=== PATIENT | female | born 1990 | race Caucasian/White ===

== ENCOUNTER → 2016-06-13 | Outpatient (CLI) | payer OTHER ==
[~2016-06-13] MED LIST: AMOXICILLIN 50500 MG PO; AMOXIL500 M1 PO; BIRTH CONTROL; CITALOPRAM HYDR20 MG PO; CITALOPRAM40 MG PO; CORTISPORIN OTI10 M1 OT; FLEXERIL10 MG PO; FLEXERIL5 MG PO; HYDROXYZINE PAM50 MG PO; IBU600 MG PO; IBUPROFEN600 MG PO; PHENERGAN 25MG.25 M1 PO; PRENATAL PLUS1 TA1 PO; PYRIDIUM 200MG200 MG PO; RANITIDINE HCL150 MG PO; SULFAMETHOXAZOLE IJ; TRIMETHOPRIM IJ; TYLENOL ES500 M1 PO; VICODIN 5/500 T1 TAB PO; VOLTAREN75 MG PO
== END ==
LOC: LAB 14:37
DX: R10.9 Unspecified abdominal pain (principal)

== ENCOUNTER → 2016-06-14 | Outpatient (CLI) | payer OTHER | LOC: LAB 08:35 | DX: Z32.00 Encounter for pregnancy test, result unknown (principal) ==

== ENCOUNTER 2016-09-16 13:22 | Emergency (ER) | payer OTHER ==
[~2016-09-16] VITALS: Ht 157.5 cm; Wt 83.9 kg
--- OUTSIDE RECORDS SUMMARY | 2016-09-16 13:38 | External Medical Summary Rpt ---
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 Name Role Phone [employer] Unavailable Unavailable INC, [employer] Unavailable Unavailable INC, [employer] TIFFANIE FRA, TIFFANIE Unavailable Unavailable FRA GUERRERO TER, GUERRERO TER Unavailable Unavailable HEREDIA ALL, HEREDIA ALL Unavailable Unavailable [facility], Unavailable Unavailable [facility] CHIPPS FRIEDA & Unavailable Unavailable DUBILIER, CHIPPS FRIEDA & DUBILIER JOSH TER, JOSH TER Unavailable Unavailable JOSH MULLINSE Unavailable Unavailable VOLODYMYR BLANDON, Unavailable Unavailable VOLODYMYR CHAN [facility] Unavailable Unavailable [facility], [facility] Unavailable Unavailable [facility], [facility] Unavailable Unavailable LAB, [facility] JANEE DANIELLA, Unavailable Unavailable JANEE DANIELLA JANEE, JESÚS, Unavailable Unavailable JANEE, JESÚS CATHY VISION, Unavailable Unavailable [facility] ELOISA RENDON PA-C Unavailable Unavailable ELOISA HICKS PA-C, MD, Unavailable Unavailable Volodymyr REDDING, Unavailable Unavailable FEDERSPIEL LAGUNAS WILLIAM, Unavailable Unavailable LAGUNAS WILLIAM LAGUNAS WILLIAM, Unavailable Unavailable LAGUNAS WILLIAM FRYMAN EUG, FRYMAN Unavailable Unavailable EUG KALYN SHAQUILLE, KALYN Unavailable Unavailable SHAQUILLE NATAN ADHIKARI S, Unavailable Unavailable NATAN ADHIKARI S DEVIN HERNANDEZ MD, Unavailable Unavailable ANNIE KIDD MD, Unavailable Unavailable ANNIE DAUGHERTY HARPEL Unavailable Unavailable [facility] Unavailable Unavailable [facility] Unavailable Unavailable [facility] Unavailable Unavailable INC, [facility] Unavailable Unavailable [facility], JOSE ELIAS A, Unavailable Unavailable JOSE ELIAS ROSE [facility], Unavailable Unavailable [facility] PRASHANTH MCMANUS CHA Unavailable Unavailable [facility] Un[facility] Unavailable [facility], [facility], Unavailable Unavailable [facility] CHLOE, CHLOE Unavailable Unavailable CHLOE MEKA, CHLOE Unavailable Unavailable MEKA Lex Adhikari MD, Unavailable Unavailable Lex BRADLEY SCO, MIRNA SAUNDERS Unavailable Unavailable [facility] Unavailable Unavailable SERVICES, [facility] HARJEET DELACRUZ, Unavailable Unavailable HARJEET DELACRUZ DANIELLA, Unavailable Unavailable TOYA DANIELLA TRACY JUS, Unavailable Unavailable TRACY SILVA, MATTHEW SILVA Unavailable Unavailable ISAMAR CASTRO, Unavailable Unavailable ISAMAR CASTRO [facility], Unavailable [facility]available [facility] Unavailable [facility]available LAB[facility] Unavailable Unavailable LAB, [facility] Unavailable Unavailable DIAGNOSTICCENTER, DIAGNOSTICCENTER PETTEY JAM, PETTEY Unavailable Unavailable JAM [facility], Unavailable Unavailable [facility] PURDOM MAT, PURDOM Unavailable Unavailable MAT RENUSCH JOSE, RENUSCH Unavailable Unavailable JOSE SCIFRES ANG, SCIFRES Unavailable Unavailable ANG SOKAN, RUTH O, Unavailable Unavailable SOKAN, RUTH O SOTINGEANU MILADIS, Unavailable Unavailable SOTINGEANU MILADIS SELLERS DON, Unavailable Unavailable SELLERS DON SELLERS DON, Unavailable Unavailable SELLERS DON SELLERS, DON R, Unavailable Unavailable SELLERS, DON R [facility], Unavailable Unavailable [facility] Unavailable Unavailable [facility] Unavailable Unavailable [facility][id number], [id number] # Unavailable Unavailable [id number], [facility] # [id number] [facility] Unavailable Unavailable OF [place], [facility] [place] Purpose Continuity of Care Document - 01-27-2008 through 2016 Problems Code Diagnosis DOS Provider Status [id number] ENCOUNTER 02-07-2016 [facility] REMOVAL PHYSICIANS INTRAUTERIN GROUP E CONTRACEPT DEVICE G8918 OTHER ACUTE 12-27-2015 [facility] RAL PAIN [id number] PAIN IN 12-27-2015 [facility] RIGHT [facility] SHOULDER FOUNDATION [id number] SUPERIOR 12-27-2015 [facility] GLENOID [facility] LABRUM LESION RT SHOULDER INIT J59894 OTHER 12-21-2015 [facility] INSTABILITY SERV RIGHT [facility]OUNDATION SHOULDER M7581 OTHER 12-21-2015 [facility] SHOULDER SERV LESIONS FOUNDATION RIGHT SHOULDER [id number] OTHER 12-13-2015 [facility] SH[facility] JOINT INITIAL ENCOUNTER [id number] STRAIN OTH 12-13-2015 [facility] M&T SHLDR SERV UP ARM LEVL FOUNDATION RT ARM INIT ENC [id number] UNS INJURY 12-13-2015 [facility] UPPER ARM UNS ARM INIT ENC Z049 ENCOUNTER 09-28-2015 [facility] EXAMINATION SERV &OBSERVATIO [facility] N FOR UNS REASON [id number] PRIMARY 09-13-2015 [facility] OSTEOARTHRI SERVICES TIS RIGHT SHOULDER S98420 PRIMARY 09-13-2015 [place] [facility]STEOARTH[facility] TIS LEFT HOSPI SHOULDER A84656 LOOSE BODY 09-13-2015 [facility] IN RIGHT SERVICES SHOULDER M79699 INCMPL RC 09-13-2015 [facility] TEAR/RUPT SERVICES RT SHOULDER NOT SPEC TRAUM [id number] UNS INJURY 08-15-2015 [facility] RT SHOULDER SERV UPPER ARM FOUNDATION INITIAL ENCNTR [id number] SPRAIN 08-14-2015 [facility] OTHER PHYSICIANS LIGAMENT LT GROUP ANKLE INITIAL ENCOUNTER J98978 PAIN IN 08-13-2015 [place] [facility] [id number] SPRAIN UNS 08-13-2015 [facility] LEFT ANKLE S INC INITIAL ENCOUNTER [id number] SPRAIN 08-13-2015 [facility], R LIGAMENT [facility] LT ANKLE INIT ENC Z720 TOBACCO USE 08-13-2015 [facility] M1990 UNSPECIFIED 06-21-2015 [facility] PHYSICIANS OSTEOARTHRI GROUP TIS UNSPECIFIED SITE M7541 IMPINGEMENT 06-21-2015 [facility] SYNDROME PHYSICIANS OF RIGHT GROUP SHOULDER M5432 SCIATICA 06-14-2015 [facility] M545 LOW BACK 06-14-2015 [facility] R071 CHEST PAIN 06-14-2015 [facility] [facility] R0789 OTHER CHEST 06-14-2015 [facility] N762 ACUTE 04-20-2015 [facility] VULVITIS PHYSICIANS GROUP K83602 OTHER 04-14-2015 [facility] JOINT INC DISORDERS RIGHT SHOULDER N926 IRREGULAR 02-16-2015 [facility] MENSTRUATIO PHYSICIANS N GROUP UNSPECIFIED X47750 ENCOUNTER 02-16-2015 [facility] ROUTINE PHYSICIANS CHECKING IU GROUP CONTRACEPT DEVICE J029 ACUTE 02-13-2015 [facility] UNSPECIFIED J309 ALLERGIC 01-18-2015 [facility] RHINITIS PHYSICIANS UNSPECIFIED GROUP M2550 PAIN IN 01-18-2015 [facility] UNSPECIFIED PHYSICIANS JOINT GROUP Z8261 FAMILY 01-18-2015 [facility] HISTORY OF PHYSICIANS ARTHRITIS GROUP Z8269 FAM HX OTH 01-18-2015 [facility] DZ PHYSICIANS MUSCULOSKEL GROUP ETAL SYS&CONNECT IV TISS M129 ARTHROPATHY 01-16-2015 [facility] K80443 STIFFNESS 01-16-2015 [facility] OF LEFT [facility] HAND NOT INC ELSEWHERE CLASSIFIED L27640 PAIN IN 01-16-2015 [place] [facility] FOREARM [facility] T25496 PAIN IN 01-16-2015 [place] [facility] V7231 ROUTINE 11-17-2014 [facility] AL EXAMINATION 17648 CONTUSION 09-25-2014 [facility] PH[facility]IANS, [facility] 7242 LUMBAGO 06-28-2014 LAGUNAS WILLIAM 7393 NONALLOPATH 06-28-2014 [facility] IC LESION WILLIAM OF [facility] V2511 ENC FOR 12-29-2012 [facility] INSERTION HEALTH INTRAUTERIN [facility] E [place] CONTRACEPT DEVICE V242 ROUTINE 12-25-2012 PATHOLOGY & CYTOLOGY FOLLOW-UP LAB 656.61 656.61 11-06-2012 [facility] EXCESS [facility] 657.01 657.01 11-06-2012 [place] POLYHYDRAMN [facility] OR W/O MENTN ANTEPARTUM COND 663.31 663.31 CORD 11-06-2012 [place] ENTANGLE [facility] 664.01 664.01 DEL 11-06-2012 [place] W 1 DEG [facility] V27.0 V27.0 11-06-2012 [place] DELIVER-SIN [facility] LIVEBORN 650 NORMAL 11-04-2012 [facility] DELIVERY [facility] [place] 75954 POOR 11-04-2012 [facility] GROWTH HEALTH AFFECT [facility]IN[facility] OF MANAGEMENT [place] MOTH DELIV 60304 EXCESS 11-04-2012 [facility] GROWTH INC AFFECT MANAGEMENT MOTH DELIV 21208 POLYHYDRAMN 11-04-2012 [facility]OMEN'S IOS, WITH HEALTH DELIVERY [facility] [place] 35066 OTH&UNS CRD 11-04-2012 [facility] ENTANGL [facility] W/O COMPRS INC COMP L&D DELIV 16396 FIRST-DEGRE 11-04-2012 [facility] E PERINEAL [facility] LACERATION INC WITH DELIVERY V270 OUTCOME OF 11-04-2012 [facility] DELIVERY HEALTH SINGLE CLINIC OF LIVEBORN [place] V221 SUPERVISION 11-02-2012 [facility]OMEN'S OF OTHER HEALTH NORMAL [facility]INIC [facility] [place] 92125 THREATENED 10-28-2012 [facility] PREMATURE [facility] LABOR INC ANTEPARTUM 45446 OTHER 10-28-2012 DEVIN HERNANDEZ MD LABOR, ANTEPARTUM 39537 UTERINE 10-23-2012 [facility] SIZE DATE [facility] ANTPRTM COND/COMPL 88202 EXCESS 10-23-2012 DI[facility]STICC GROWTH ENTER AFFECT MGMT MOTH ANTPRTM 68735 POLYHYDRAMN 10-23-2012 IOS DIAGNOSTICC ANTEPARTUM ENTER COMPLICATIO N V2389 SUPERVISION 10-23-2012 OF OTHER DIAGNOSTICC HIGH-RISK ENTER 642.93 642.93 10-05-2012 [facility] NOS-ANTEPAR Hospital GAYE 644.03 644.03 THRT 10-05-2012 [facility] LABOR-ANTEP Hospital ART 657.03 657.03 10-05-2012 [facility] CONDITION/C OMPLICATION V222 10-05-2012 [facility], MEDICAL INCIDENTAL IMAGING ASS 07388 UNSPECIFIED 10-03-2012 [facility] HYPERTENSIO INC N ANTEPARTUM 48291 OTH 09-25-2012 [facility] LAR DISEASES ANTEPARTUM 66415 DECR 09-14-2012 [facility] MOVMNTS [facility] MGMT MOTH INC ANTPRTM COND/COMP 6164 OTHER 09-07-2012 [facility] [place] 50982 OTHER 09-07-2012 [facility] POSTOPERATI PHYSICIANS VE LA INFECTION NEC V283 ENCOUNTER 07-02-2012 [facility] ROUTINE HEALTH SCREEN CLINIC OF MALFORMATIO [place] N ULTRASONIC 5990 URINARY 06-24-2012 [facility] TRACT HEALTH INFECTION CLINIC OF SITE NOT [place] SPECIFIED 250.00 250.00 DIAB 06-15-2012 [facility] MELL [facility], TYPE Hospital II OR UNSPEC TYPE, NOT UNCNTRLD 68585 DIAB W/O 06-15-2012 [facility] COMP TYPE [facility] II/UNS NOT INC STATED UNCNTRL 784.0 784.0 06-15-2012 [facility] 7840 HEADACHE 06-15-2012 [facility] V22.2 V22.2 PREG 06-15-2012 [facility] 87492 OTH CURRENT 05-12-2012 [facility] MATERNAL HEALTH CCE-COMPL CENTER PG CB/PP-UNS EOC V653 DIETARY 05-12-2012 [facility] MS [facility] E AND CENTER COUNSELING 50068 OTHER 04-09-2012 [facility] SPECIFED HEALTH COMPLICATIO CLINIC [facility] N [place] ANTEPARTUM V745 SCREENING 04-01-2012 PATHOLOGY & EXAMINATION CYTOLOGY FOR LAB VENEREAL DISEASE 6259 UNSPEC 03-17-2012 [facility] EMERGENCY ASSOC SERVICES W/FEMALE GENITAL ORGANS V7242 03-11-2012 [facility] MS EXAMINATION HEALTH OR TEST CENTER POSITIVE RESULT 13465 CONDYLOMA 12-19-2010 [facility] ACUMINATUM [facility] [place] 0794 HUMAN 11-22-2010 [facility] PAP[place]OMA FRIEDA & VIRUS IN DUBILIER CCE & UNS SITE 6160 CERVICITIS 11-22-2010 [facility] AND FRIEDA & ENDOCERVICI DUBILIER TIS 30348 MILD 11-22-2010 [facility] DYSPLASIA FRIEDA & OF CERVIX DUBILIER 16253 PAP SMER 11-22-2010 PATHOLOGY & CERV CYTOLOGY W/ATYPICAL LAB SQUAMOUS CELLS UNDET 85077 PAP ER 11-22-2010 [facility]OMEN'S CERV W/LW HEALTH GRADE CLINIC OF SQUAMOUS [place] INTRAEPITH LES 3671 MYOPIA 10-26-2010 CATHY VISION 2662 OTHER 05-01-2010 [facility] B-COMPLEX HEALTH DEFICIENCIE CENTER S V1589 OTH SPEC 05-01-2010 PATHOLOGY & PERS HX CYTOLOGY PRESENTING LAB HAZARDS HEALTH OTH V2549 SURVEILLANC 05-01-2010 [facility] E OT PREV HEALTH PRSC CENTER CONTRACEPT METHOD 462 ACUTE 02-11-2010 [facility] 06719 NAUSEA 02-11-2010 [facility] V255 INSERTION 01-30-2010 [facility]OMEN'S OF HEALTH IMPLANTABLE CLINIC OF SUBDERMAL [place] CONTRACEPTI VE V0481 NEED 01-26-2010 [facility] VACCINATION &INOCULATIO N FLU 8472 LUMBAR 01-01-2010 SELL[facility] SPRAIN AND DON STRAIN 463 ACUTE 11-21-2009 [place] 30029 ABDOMINAL 05-12-2009 WOMEN'S PAIN RIGHT HEALTH LOWER CLINIC OF [place]RANT [place] [facility] 21780 ABDOMINAL 05-05-2009 WOMEN'S PAIN, LEFT HEALTH LOWER CLINIC OF [place] [facility] 93471 CHEST PAIN 04-03-2009 [place] [facility] 27601 ABDOMINAL 04-03-2009 [facility] PAIN RIGHT MEDICAL UPPER IMAGING [facility] 16059 ABDOMINAL 04-03-2009 [facility] PA[facility] OTHER EMERGENCY SPECIFIED SERVICES SITE ASSOCIATES 9249 CONTUSION 04-03-2009 [facility] OF [facility]ERGENCY UNSPECIFIED SERVICES SITE ASSOCIATES 73264 OTHER 09-06-2008 [facility] DISEASES OF EMERGENCY NASAL SERVICES CAVITY AND ASSOCIATES SINUSES 7869 OTH 09-06-2008 [facility] SYMPTOMS [facility]GENCY INVOLVING SERVICES RESPIRATORY ASSOCIATES SYSTEM&[place]ES T [address] VOMITING 09-06-2008 [facility] ALONE [facility]ERGENCY SERVICES ASSOCIATES 13773 DIARRHEA 09-06-2008 [facility] 46506 UNSPECIFIED 09-01-2008 [facility] INFECTIVE EMERGENCY OTITIS SERVICES EXTERNA ASSOCIATES 3829 UNSPECIFIED 09-01-2008 [facility]IS [facility] MEDIA SERVICES [facility]OCIATES 47636 MATERNAL 08-24-2008 WOMEN'S MENTAL D/O HEALTH CLINIC OF COND/COMPLI [place] CATION [facility] V251 ENCOUNTER 08-24-2008 WOMEN'S INSERT/ROBBIE HEALTH RADHA IU CLINIC OF CONTRACEPTI [place] VE DEVICE [facility] 71204 OLIGOHYDRAM 07-13-2008 WOMEN'S NIOS, HEALTH DELIVERED CLINIC OF [place] [facility] 30758 OLIGOHYDRAM 07-12-2008 WOMEN'S NIOS, HEALTH ANTEPARTUM CLINIC OF [place] [facility] 65962 POST TERM 07-11-2008 WOMEN'S HEALTH ANTEPARTUM CLINIC OF COND/COMPLI [place] CATION [facility] V220 SUPERVISION 07-04-2008 WOMEN'S OF NORMAL HEALTH FIRST CLINIC OF [place] [facility] 4659 ACUTE URIS 05-31-2008 VERITO, OF DON R UNSPECIFIED SITE 20606 OTH CURRENT 05-10-2008 [facility] CLASSIFIABL CLINIC OF [place] DO [facility] M54.9 DORSALGIA, UNSPECIFIED S80.00XA CONTUSION OF UNSPECIFIED KNEE, INITIAL ENCOUNTER S93.402A SPRAIN OF UNSPECIFIED LIGAMENT OF LEFT ANKLE, INIT ENCNTR Allergies, Adverse Reactions, Alerts Type Drug Allergy Adverse Reaction to Substance Substance Reaction Severity No Known Allergies - Unknown Mild Nka Clinical Alert Notifications Alert Diabetes: no A1C in the last 6 months Diabetes: no eye exam in the last 365 days Diabetes: no influenza vaccine in the last 365 days Diabetes: no lipid panel in the last 365 days Diabetes: no urine protein screening in the last 365 days Medications Na ND Rx Da Fi Fi Am Da Di Ph RX Ph St me C No te ll ll ou ys ag ar # ys at rm s nt no ma ic us Or Da si cy ia de te s n re d DE 00 08 0 No XT 40 -0 RO 97 7- Lo SE 92 20 ng 90 13 er 5% 9 -L Ac R ti IV ve SO TERI TI ON LA [address] 40 -0 AT 97 7- Lo ED 95 20 ng 30 13 er RI 9 NG Ac ER ti S ve IN JE CT IO N PI 11 08 0 No TO 11 -0 CI 11 7- Lo N 11 20 ng 30 13 13 er 3 UN Ac IT ti S/ ve LR 50 0M L IV DI 00 08 1 No PH 40 -0 EN 92 7- Lo HY [address] 03 13 er AM 1 IN Ac E ti 50 ve MG /M L SY RN G MA 00 08 2 No PA 90 -0 P 41 7- Lo 32 98 20 ng 5 26 13 er MG 1 Ac TA ti BL ve ET DE 63 08 2 No RM 02 -0 OP 98 7- Lo LA [address] 40 13 er 1 SP Ac RA ti Y ve Ib 62 08 2 No up 58 -0 ro 40 7- Lo fe 74 20 ng n 60 13 er 40 1 0M Ac G ti Ta ve bl et A. 50 08 2 No E. 28 -0 R 93 7- Lo PA 25 20 ng DS 00 13 er 1 Ac ti ve MA 00 07 0 No PA 90 -0 P 41 7- Lo 32 98 20 ng 5 26 13 er MG 1 Ac TA ti BL ve ET LO 00 07 1 No VE 07 -0 NO 50 7- Lo X 62 20 ng 40 04 13 er 1 MG Ac /0 ti .4 ve ML SY RI NG E LA [address] 40 -0 AT 97 6- Lo ED 95 20 ng 30 13 er RI 9 NG Ac ER ti S ve IN JE CT IO N MA 00 07 0 No GN 40 -0 ES 96 6- Lo IU 73 20 ng M 01 13 er RODRIGES 3 LF Ac 4 ti ve G/ 50 ML BA G CE 00 07 1 No LE 08 -0 ST 50 6- Lo ON 56 20 ng E 60 13 er SO 5 TERI Ac SP ti AN ve 30 MG /5 ML TE 63 07 0 No RB 32 -0 UT 30 6- Lo AL 66 20 ng IN 50 13 er E 1 RODRIGES Ac LF ti 1 ve MG /M L AL OX 00 07 0 No YC 40 -0 OD 60 6- Lo ON 55 20 ng E 26 13 er HC 2 L Ac 5 ti MG ve TA BL ET AC 00 03 0 No ET 40 -1 AM 60 8- Lo IN 48 20 ng OP 46 13 er HE 2 N- Ac CO ti D ve #3 TA BL ET CI 55 08 09 11 15 30 WA 71 CL Ac TA 11 -2 -2 .0 L- 32 AR ti LO 10 5- 9- 00 MA 34 KE ve AZ 34 20 20 RT 4 AM 43 11 11 DE 0 PH RE HB AR K R MA J 40 CY # MG 10 TA 05 BL 91 ET CI 55 08 08 11 15 30 WA 71 CL Ac TA 11 -2 -2 .0 L- 32 AR ti LO 10 5- 5- 00 MA 34 KE ve AZ 34 20 20 RT 4 AM 43 11 11 DE 0 PH RE HB AR K R MA J 40 CY # MG 10 TA 05 BL 91 ET LI 00 08 08 1 35 10 SC 71 CL Ac DO 16 -2 -2 .4 L- 32 AR ti CA 80 5- 5- 39 MA 34 KE ve IN 20 20 20 RT 5 E 43 11 11 DE 5% 7 PH RE AR K OI MA J NT CY ME # NT 10 05 91 LI 00 04 04 0 35 15 WA 71 CL Ac DO 16 -2 -2 .4 L- 16 AR ti CA 80 5- 5- 39 MA 62 KE ve IN 20 20 20 RT 2 E 43 11 11 DE 5% 7 PH RE AR K OI MA J NT CY ME # NT 10 05 91 00 02 02 1 14 7 WA 71 PO Ac 59 -0 -0 .0 L- 05 PE ti 13 1- 2- 00 MA 15 ve 97 20 20 RT 3 DO 05 11 11 NN 0 PH A AR M MA CY # 10 05 91 AZ 68 11 11 0 15 5 WA 70 CALVIN Ac OM 38 -1 -1 .0 L- 94 HN ti ET 20 4- 4- 00 MA 31 SO ve MADERA 04 20 20 RT 2 N ZI 10 10 10 CH NE 1 PH AR AR LE 25 MA S CY M MG # TA 10 BL 05 ET 91 AM 00 11 11 0 30 10 WA 70 CALVIN Ac OX 78 -1 -1 .0 L- 94 HN ti IC 12 4- 4- 00 MA 31 SO ve IL 61 20 20 RT 3 N LI 33 10 10 CH N 1 PH AR 50 AR LE 0 MA S MG CY M # CA PS 10 UL 05 E 91 IB 68 11 11 0 21 7 SC 70 CALVIN Ac UP 64 -1 -1 .0 L- 94 HN ti RO 50 4- 4- 00 MA 31 SO ve FE 22 20 20 RT 4 N N 15 10 10 CH 60 9 PH AR 0 AR LE MG MA S CY M TA # BL ET 10 05 91 00 06 06 0 8. 2 WA 44 GA Ac 40 -1 -1 00 L- 86 IN ti 60 2- 3- 0 MA 25 EY ve 35 20 20 RT 8 70 10 10 TN 5 PH CH AR AE MA L CY S # 10 05 91 DI 00 06 06 0 14 7 SC 70 GA Ac CL 78 -1 -1 .0 L- 74 IN ti OF 11 2- 3- 00 MA 52 EY ve EN 78 20 20 RT 4 AC 90 10 10 TN 1 PH CH SO AR AE D MA L EC CY S # 75 10 MG 05 91 TA B 00 06 06 0 14 7 SC 70 GA Ac 37 -1 -1 .0 L- 74 IN ti 80 2- 3- 00 MA 52 EY ve 75 20 20 RT 5 19 10 10 TN 3 PH CH AR AE MA L CY S # 10 05 91 AM 00 03 03 0 [address] Ac OX 78 -0 -0 .0 L- 60 EP ti IC 12 2- 2- 00 MA 62 HE ve IL 61 20 20 RT 4 NS LI 33 10 10 N 1 PH DO 50 AR N 0 MA R MG CY # CA PS 10 UL 05 E 91 LO 00 03 03 0 [address] Ac RA 78 -0 -0 .0 L- 15 EP ti TA 15 2- 2- 00 MA 58 HE ve DI 07 20 20 RT 7 NS NE 70 10 10 1 PH DO 10 AR N MA R MG CY # TA BL 10 ET 05 91 00 06 06 00 20 3 WA 44 ME Ac 40 -1 -1 .0 L- 77 AD ti 60 0- 8- 00 MA 33 E ve 35 20 20 RT 5 DM 80 09 09 D 1 PH JE AR WE MA LL CY #5 91 ME 00 06 06 00 21 6 WA 70 ME Ac TH 60 -1 -1 .0 L- 24 AD ti YL 34 0- 8- 00 MA 13 E ve AZ 59 20 20 RT 5 DM ED 31 09 09 D NI 5 PH JE SO AR WE LO MA LL NE CY 4 #5 MG 91 DO SE PK AM 00 06 06 00 21 7 70 ME Ac OX 78 -1 -1 .0 L- 24 AD ti IC 12 0- 8- 00 MA 13 E ve IL 61 20 20 RT 4 DM LI 30 09 09 D N 5 PH JE 50 AR WE 0 MA LL MG CY CA #5 PS 91 UL E NE 61 06 06 00 10 12 70 MADERA Ac OM 31 -0 -1 .0 L- 23 MO ti YC 40 4- 8- 00 MA 38 N ve IN 64 20 20 RT 6 AN -P [address] OL 0 PH EW YM AR R YX MA IN CY -H C #5 EA [address] TR 59 06 06 00 3. 3 44 ME Ac IA 76 -0 -1 00 L- 77 AD ti ZO 23 9- 8- 0 MA 28 E ve LA 71 20 20 RT 7 DM M 80 09 09 D 0. 4 PH JE 25 AR WE MA LL MG CY TA #5 BL 91 ET DI 00 06 06 00 1. 1 WA 44 ME Ac AZ 37 -0 -1 00 L- 77 AD ti EP 80 9- 8- 0 MA 28 E ve AM 34 20 20 RT 8 DM 5 50 09 09 D 5 PH JE MG AR WE MA LL TA CY BL ET #5 91 SE 31 05 06 00 15 30 WA 70 CL Ac RT 72 -2 -0 .0 L- 22 AR ti RA 20 7- 4- 00 MA 18 KE ve LI 21 20 20 RT 5 NE 43 09 09 DE 0 PH RE HC AR K L MA J 10 CY 0 MG #5 91 TA BL ET 53 04 04 00 40 6 WA 70 CL Ac 74 -1 -2 .0 L- 16 AR ti 60 7- 3- 00 MA 87 KE ve 13 20 20 RT 1 10 09 09 DE 5 PH RE AR K MA J CY #5 91 OX 00 04 04 00 30 2 WA 22 CL Ac YC 40 -1 -2 .0 L- 15 AR ti OD 60 7- 3- 00 MA 97 KE ve ON 51 20 20 RT 0 E- 20 09 09 DE AC 1 PH RE ET AR K AM MA J IN CY OP HE #5 N 91 5- 32 5 AM 00 03 03 00 [address] Ac OX 78 -0 -1 .0 L- 10 EP ti IC 12 3- 2- 00 MA 33 HE ve IL 02 20 20 RT 5 NS LI 00 09 09 N 5 PH DO 25 AR N 0 MA R MG CY CA #5 PS 91 UL E 59 02 03 00 17 30 WA 70 CL Ac 36 -2 -1 0. L- 09 AR ti 62 4- 2- 09 MA 40 KE ve 70 20 20 9 RT 3 40 09 09 DE 1 PH RE AR K MA J CY #5 91 00 02 02 00 30 5 WA 44 CL Ac 40 -1 -2 .0 L- 74 AR ti 60 0- 6- 00 MA 26 KE ve 35 20 20 RT 5 70 09 09 DE 5 PH RE AR K MA J CY #5 91 FE 00 01 01 00 30 30 WA 88 CL Ac RR 67 -1 -3 .0 L- 13 AR ti OU 70 6- 0- 00 MA 37 KE ve S 07 20 20 RT 6 RODRIGES 01 09 09 DE LF 0 PH RE AT AR K E MA J 32 CY 5 MG #5 91 TA BL ET AM 00 12 01 00 [address] Ac OX 78 -1 -0 .0 L- 99 EP ti IC 12 5- 1- 00 MA 90 HE ve IL 61 20 20 RT 8 NS LI 30 08 09 N 5 PH DO 50 AR N 0 MA R MG CY CA #5 PS 91 UL E 59 12 01 00 0. 30 WA 70 CL Ac 36 -1 -0 99 L- 00 AR ti 62 9- 1- 5 MA 58 KE ve 70 20 20 RT 4 40 08 09 DE 1 PH RE AR K MA J CY #5 91 FE 00 12 01 00 30 30 WA 88 CL Ac RR 57 -1 -0 .0 L- 13 AR ti OU 40 9- 1- 00 MA 25 KE ve S 60 20 20 RT 1 RODRIGES 81 08 09 DE LF 0 PH RE AR K EC MA J CY 32 4 #5 MG 91 TA BL ET 64 10 11 00 5. 1 WA 69 CL Ac 01 -3 -0 79 L- 93 AR ti 10 0- 7- 9 MA 48 KE ve 00 20 20 RT 4 10 08 08 DE 8 PH RE AR K OSACR J CY #5 91 58 10 11 00 30 30 WA 69 CL Ac 17 -2 -0 .0 L- 92 AR ti 70 3- 7- 00 MA 57 KE ve 22 20 20 RT 0 50 08 08 DE 4 PH RE AR K OSCAR J CY #5 91 Immunization Name Date Route CVX Reacti Commen Provid Is Given on t er Refuse d IIV3 HERNANDEZ No VACCIN 2010 [facility] 0.5 ML DOSAGE IM USE Vital Signs 11-04-2012 09:43 Name Value Interpretat Reference Comment ion Range Weight 209 [lb_av] Measured Weight 94.802 kg Measured 06-15-2012 22:21 Name Value Interpretat Reference Comment ion Range BP 69 mm[Hg] Diastolic BP Systolic 118 mm[Hg] Heart 102 /min Rate/Pulse O2% 97 % Respiratory 16 /min Rate Results Labs Lab Lab Date Result Refere Interp Status Commen Order Detail nces retati t Range on pH BldCo (11-04-2012 18:20) pH 7.19 7.35-7. complet [facility]ld[facility] 013 UNK 45 ed 18:20 URINALYSIS/COMPLETE (11-04-2012 10:02) URINE YELLOW YELLOW complet COLOR 013 ed 10:02 URINE CLEAR CLEAR complet APPEARA 013 ed NCE 10:02 URINE NEGATIV NEG complet GLUCOSE 013 E ed - 10:02 DIPSTIC K URINE NEGATIV NEG complet BILIRUB 013 E ed IN - 10:02 DIPSTIC K URINE NEGATIV NEG complet KETONE 013 E mg/dL ed 10:02 URINE 1.015 1.005-1 complet SPECIFI 013 UNK .030 ed C 10:02 GRAVITY URINE NEGATIV NEG complet BLOOD 013 E ed 10:02 URINE 6.5 UNK 5.0-8.5 complet PH 013 ed 10:02 URINE NEGATIV NEG complet PROTEIN 013 E mg/dL ed - 10:02 DIPSTIC K URINE 2 0.2 NEG complet UROBILI 013 E.U./dL ed NOGEN - 10:02 DIPSTIC K URINE NEGATIV NEG complet NITRATE 013 E ed - 10:02 DIPSTIC K URINE NEGATIV NEG complet LEUK 013 E ed ESTERAS 10:02 E URINE OCC 0 complet RBC 013 rbc/hpf ed 10:02 URINE 10-20 O complet WBC 013 wbc/hpf ed 10:02 URINE 10-20 0-5 complet SQUAMOU 013 #/hpf ed S CELLS 10:02 URINE 1+ O complet BACTERI 013 ed A 10:02 URINE 3+ OCC complet MUCUS 013 ed 10:02 CBC with AUTO DIFF (11-04-2012 05:24) WBC # 07-2 17.0 4.8-10. complet Bld 013 K/MM3 8 ed Auto 05:24 RBC # 07-2 4.02 4.2-5.4 complet Bld 013 M/mm3 ed Auto 05:24 Hgb 10.4 12.2-16 complet Bld-mCn 013 g/dL .2 ed c 05:24 Hct Fr 31.6 % 37.0-47 complet Bld 013 .0 ed 05:24 MCV RBC 11-04- 78.7 fl 82.2-97 complet 013 .8 ed 05:24 MCH RBC 11-04-2 25.8 pg 27-31.2 complet Qn 013 ed Auto 05:24 MEAN 32.8 31.8-35 complet CORPUSC 013 g/dl .4 ed ULAR 05:24 HGB CONC RDW RBC 11-04-2 16.0 % 11.5-17 complet Auto 013 .5 ed 05:24 Platele 434 142-424 complet t Bld 013 K/mm3 ed Ql 05:24 Manual MEAN 7.3 fl 7.4-10. complet PLATELE 013 4 ed T 05:24 VOLUME Granulo 08-07-2 70.3 % 37.0-80 complet cytes 013 .0 ed Fr Bld 05:24 Auto LYMPH % 08-07-2 23.4 % 10-50.0 complet 013 ed 05:24 Monocyt 08-07-2 5.2 % 1.7-9.3 complet es Fr 013 ed Bld 05:24 Auto Eosinop 08-07-2 0.6 % 0.1-12. complet hil Fr 013 0 ed Bld 05:24 Auto Basophi 08-07-2 0.4 % 0.1-2.0 complet ls Fr 013 ed Bld 05:24 Auto Granulo 08-07-2 12.0 1.8-7.8 complet cytes # 013 K/mm3 ed Bld 05:24 Auto Lymphoc 08-07-2 4.0 0.7-4.5 complet ytes Fr 013 K/mm3 ed Bld 05:24 Auto Monocyt 08-07-2 0.9 0.1-1.0 complet es # 013 K/mm3 ed Bld 05:24 Auto Eosinop 08-07-2 0.1 0.0-0.4 complet hil # 013 K/mm3 ed Bld 05:24 Auto Basophi 08-07-2 0.1 0-0.2 complet ls # 013 K/MM3 ed Bld 05:24 Auto Magnesium SerPl-mCnc (10-05-2012 06:41) Magnesi 10-05- 5.1 1.4-2.2 complet um 013 mg/dL ed SerPl-m 06:41 Cnc URINE CREATININE- 24 HOUR (10-04-2012 16:33) URINE 24 complet COLLECT 013 HOURS ed ION 16:33 TIME URINE 6530 mL 600-160 complet TOTAL 013 0 ed VOLUME 16:33 URINE 1574 600-160 complet CREATIN 013 mg/24HR 0 ed INE 16:33 CONC URINE TOTAL PROT 24 HOUR (10-04-2012 16:33) URINE 10-04-2 24 complet COLLECT 013 HOURS ed ION 16:33 TIME URINE 6530 mL 600-160 complet TOTAL 013 0 ed VOLUME 16:33 URINE 261 40-90 complet TOTAL 013 mg/24 ed PROTEIN 16:33 HR CONC Magnesium SerPl-mCnc (10-04-2012 06:07) Magnesi 5.2 1.4-2.2 complet um 013 mg/dL ed SerPl-m 06:07 Cnc BASIC METABOLIC PANEL (10-03-2012 14:10) Glucose 76 74-106 complet 013 mg/dL ed Bld-mCn 14:10 c BUN 4 mg/dL 7-18 complet Bld-mCn 013 ed c 14:10 Creat 0.7 0.6-1.0 complet SerPl-m 013 mg/dL ed Cnc 14:10 ESTIMAT 182 50-200 complet ED 013 ML/MIN ed CREATIN 14:10 INE CLEARAN CE GFR 105 59- complet (ESTIMA 013 ML/MIN ed ZAKI) 14:10 Sodium 135 136-145 complet SerPl-s 013 mmoL/L ed Cnc 14:10 Potassi 3.7 3.5-5.1 complet um 013 mmoL/L ed SerPl-s 14:10 Cnc Chlorid 102 98-107 complet e 013 mmoL/L ed SerPl-s 14:10 Cnc CO2 24 21.0-32 complet SerPl-s 013 mmoL/L .0 ed Cnc 14:10 Calcium 8.2 8.5-10. complet 013 mg/dL 1 ed SerPl-m 14:10 Cnc URIC ACID (10-03-2012 14:10) URIC 3.6 2.6-7.2 complet ACID 013 mg/dL ed 14:10 AST SerPl-cCnc (10-03-2012 14:10) AST 8 U/L 15-37 complet SerPl-c 013 ed Cnc 14:10 ALT SerPl-cCnc (10-03-2012 14:10) ALT 21 U/L 30-65 complet SerPl-c 013 ed Cnc 14:10 Magnesium SerPl-mCnc (10-03-2012 14:10) Magnesi 1.7 1.4-2.2 complet um 013 mg/dL ed SerPl-m 14:10 Cnc PROTIME/INR (10-03-2012 14:10) PROTHRO 10-03-2 10.0 9.9-11. complet MBIN 013 SECONDS 6 ed TIME 14:10 INR Bld 10-03-2 0.93 0.9-1.1 complet 013 UNK ed 14:10 ACT PARTIAL THROMBO TIME (10-03-2012 14:10) ACT 10-03-2 25.4 25.3-32 complet PARTIAL 013 SECONDS .0 ed 14:10 THROMBO TIME Fibrinogen PPP-mCnc (10-03-2012 14:10) Fibrino 10-03-2 484.5 204.1-4 complet gen 013 mg/dL 58.1 ed PPP-mCn 14:10 c D Dimer PPP (10-03-2012 14:10) D Dimer 2480 0-400 High complet PPP 013 ng/mL alert ed 14:10 CBC with AUTO DIFF (10-03-2012 14:10) WBC # -06-2 16.7 4.8-10. complet Bld 013 K/MM3 8 ed Auto 14:10 RBC # 10-03-2 3.92 4.2-5.4 complet Bld 013 M/mm3 ed Auto 14:10 Hgb 10-03-2 10.6 12.2-16 complet Bld-mCn 013 g/dL .2 ed c 14:10 Hct Fr 10-03-2 31.4 % 37.0-47 complet Bld 013 .0 ed 14:10 MCV RBC 06-2 80.3 fl 82.2-97 complet 013 .8 ed 14:10 MCH RBC 06-2 27.1 pg 27-31.2 complet Qn 013 ed Auto 14:10 MEAN 10-03-2 33.8 31.8-35 complet CORPUSC 013 g/dl .4 ed ULAR 14:10 HGB CONC RDW RBC 10-03-2 14.7 % 11.5-17 complet Auto 013 .5 ed 14:10 Platele --2 474 142-424 complet t Bld 013 K/mm3 ed Ql 14:10 Manual MEAN 10-03-2 7.4 fl 7.4-10. complet PLATELE 013 4 ed T 14:10 VOLUME Granulo 10-03-2 75.2 % 37.0-80 complet cytes 013 .0 ed Fr Bld 14:10 Auto LYMPH % 07-06-2 18.7 % 10-50.0 complet 013 ed 14:10 Monocyt 07-06-2 4.9 % 1.7-9.3 complet es Fr 013 ed Bld 14:10 Auto Eosinop 07-06-2 0.9 % 0.1-12. complet hil Fr 013 0 ed Bld 14:10 Auto Basophi 07-06-2 0.4 % 0.1-2.0 complet ls Fr 013 ed Bld 14:10 Auto Granulo 07-06-2 12.6 1.8-7.8 complet cytes # 013 K/mm3 ed Bld 14:10 Auto Lymphoc 07-06-2 3.1 0.7-4.5 complet ytes Fr 013 K/mm3 ed Bld 14:10 Auto Monocyt 07-06-2 0.8 0.1-1.0 complet es # 013 K/mm3 ed Bld 14:10 Auto Eosinop 07-06-2 0.2 0.0-0.4 complet hil # 013 K/mm3 ed Bld 14:10 Auto Basophi 07-06-2 0.1 0-0.2 complet ls # 013 K/MM3 ed Bld 14:10 Auto URINALYSIS/COMPLETE (10-03-2012 13:15) URINE 07-06-2 YELLOW YELLOW complet COLOR 013 ed 13:15 URINE 07-06-2 CLEAR CLEAR complet APPEARA 013 ed NCE 13:15 URINE 07-06-2 NEGATIV NEG complet GLUCOSE 013 E ed - 13:15 DIPSTIC K URINE 07-06-2 NEGATIV NEG complet BILIRUB 013 E ed IN - 13:15 DIPSTIC K URINE 07-06-2 NEGATIV NEG complet KETONE 013 E mg/dL ed 13:15 URINE 07-06-2 1.015 1.005-1 complet SPECIFI 013 UNK .030 ed C 13:15 GRAVITY URINE 07-06-2 NEGATIV NEG complet BLOOD 013 E ed 13:15 URINE 07-06-2 7.0 UNK 5.0-8.5 complet PH 013 ed 13:15 URINE 07-06-2 NEGATIV NEG complet PROTEIN 013 E mg/dL ed - 13:15 DIPSTIC K URINE 07-06-2 0.2 NEG complet UROBILI 013 E.U./dL ed NOGEN - 13:15 DIPSTIC K URINE 07-06-2 NEGATIV NEG complet NITRATE 013 E ed - 13:15 DIPSTIC K URINE 07-06-2 NEGATIV NEG complet LEUK 013 E ed ESTERAS 13:15 E URINE 07-06-2 OCC 0 complet RBC 013 rbc/hpf ed 13:15 URINE 07-06-2 3-5 O complet WBC 013 wbc/hpf ed 13:15 URINE 07-06-2 3-5 0-5 complet SQUAMOU 013 #/hpf ed S CELLS 13:15 Fibronectin Vag Ql (10-03-2012 13:05) Fibrone 07-06-2 NEGATIV NEGATIV complet ctin 013 E E ed 13:05 Vag Ql AMNISURE RUPTURE TEST (10-03-2012 13:05) AMNISUR 07-06-2 NEGATIV complet E 013 E FOR ed 13:05 RUPTURE RUPTURE TEST URINALYSIS/COMPLETE (06-15-2012 20:25) URINE 03-18-2 YELLOW YELLOW complet COLOR 013 ed 20:25 URINE 03-18-2 CLEAR CLEAR complet APPEARA 013 ed NCE 20:25 URINE 03-18-2 NEGATIV NEG complet GLUCOSE 013 E ed - 20:25 DIPSTIC K URINE 03-18-2 NEGATIV NEG complet BILIRUB 013 E ed IN - 20:25 DIPSTIC K URINE 03-18-2 NEGATIV NEG complet KETONE 013 E mg/dL ed 20:25 URINE 03-18-2 1.010 1.005-1 complet SPECIFI 013 UNK .030 ed C 20:25 GRAVITY URINE 03-18-2 NEGATIV NEG complet BLOOD 013 E ed 20:25 URINE 03-18-2 8.0 UNK 5.0-8.5 complet PH 013 ed 20:25 URINE 03-18-2 NEGATIV NEG complet PROTEIN 013 E mg/dL ed - 20:25 DIPSTIC K URINE 03-18-2 1.0 NEG complet UROBILI 013 E.U./dL ed NOGEN - 20:25 DIPSTIC K URINE 03-18-2 POSITIV NEG complet NITRATE 013 E ed - 20:25 DIPSTIC K URINE 03-18-2 NEGATIV NEG complet LEUK 013 E ed ESTERAS 20:25 E URINE 03-18-2 OCC 0 complet RBC 013 rbc/hpf ed 20:25 URINE 03-18-2 3-5 O complet WBC 013 wbc/hpf ed 20:25 URINE 03-18-2 3-5 0-5 complet SQUAMOU 013 #/hpf ed S CELLS 20:25 URINE 03-18-2 1+ O complet BACTERI 013 ed A 20:25 Procedures Procedure DOS Code Location Performer Comment REMOVAL 46195 [facility] CHAN INTRAUTER 6 PHYSICIAN TOBY INE S GROUP DEVICE IUD INJECTION 00885 [place] CHLOE ANES 6 MEDICAL MEKA BRACHIAL SERV PLEXUS FOUNDATIO CONT NFS N CATH ARTHROSCO 26269 [place] MIRNA SCO PY 6 MEDICAL SHOULDER SERV SURGICAL FOUNDATIO CAPSULORR N HAPHY ANES 33487 [place] FEDERSPIE ARTHRS 6 MEDICAL L HUMERAL SERVICES H/N STRNCLAV & SHOULDER NOS MRI ANY 21484 [place] [facility] UPPER 6 MEDICAL Y JUS EXTREMITY SERV W/O FOUNDATIO CONTRAST N MATRL RADEX 41542 [place] TIFFANIE SHOULDER 6 MEDICAL FRA COMPLETE SERV MINIMUM 2 FOUNDATIO VIEWS N ARTHROSCO 68310 [place] MIR[place] SCO PY 6 MEDICAL SHOULDER SERV SURG FOUNDATIO DEBRIDEME N NT EXTENSIVE CLAVICULE 31520 [place] SCO CTOMY 6 MEDICAL PARTIAL SERV FOUNDATIO N ANESTHESI 79669 [place] A 6 MEDICAL MEDICAL [place] [address] [place] CHLOE GUIDANCE 6 MEDICAL NEEDLE SERV PLACEMENT FOUNDATIO IMG S&I N DECALCIFI 71818 UNIVERSIT PURDOM CATION 6 Y OF MAT PROCEDURE [place] [facility] [place] [address] [facility] Y [facility] MAT PATHOLOGY [facility] GROSS&SHAQUILLE ROSCOPIC EXAM INJECTION 86059 [place] CHLOE ANES 6 MEDICAL BRACHIAL SERV PLEXUS FOUNDATIO CONT NFS N CATH RADEX 58848 [place] MONTGOMER SHOULDER 6 MEDICAL Y JUS COMPLETE SERV MINIMUM 2 FOUNDATIO VIEWS N CRTCHS E0114 ADVANCED ADVANCED UNDARM 6 TECHNOLOG TECHNOLOG OTH THAN IES INC IES INC WOOD PAIR PAD TIP&HNDGR IP RADEX 23190 MACKENZIE MANN ANKLE 6 [facility]P COMPLETE INC INC MINIMUM 3 VIEWS ANKLE L4350 ADVANCED ADVANCED CONTROL 6 TECHNOLOG TECHNOLOG ORTHOSIS IES INC IES INC MISTIRUP STYL RIGID PREFAB ARTHROCEN 94771 [facility] TESIS 6 PHYSICIAN PHYSICIAN ASPIR&/IN S GROUP S GROUP J MAJOR JT/BURSA W/O US ARTHROCEN 27832 [facility] PETTEY TESIS 6 PHYSICIAN JAM ASPIR&/IN S GROUP J INTERM JT/BURS W/O US INJ J0702 [facility] PETTEY BETAMETHA 6 PHYSICIAN JAVI SONE S GROUP ACETATE & PHOSPHATE 3 MG RADIOLOGI 81751 [place] YAN ALL C EXAM 6 MEDICAL CHEST 2 IMAGING VIEWS ASS FRONTAL&L ATERAL INJ J0702 [facility] PETTEY BETAMETHA 6 PHYSICIAN JAVI REYE S GROUP ACETATE & PHOSPHATE 3 MG ARTHROCEN 34939 [facility] PETTEY TESIS 6 PHYSICIAN JAM ASPIR&/IN S GROUP J INTERM JT/BURS W/O US THERAPEUT 44218 MACKENZIE MANN IC PX 1/> 6 [facility] HOSP AREAS INC INC EACH 15 MIN EXERCISES PHYSICAL 88470 MACKENZIE MANN THERAPY 6 [facility] HOSP EVALUATIO INC [place] 62440 [place] YAN ALL JT UPPER 6 MEDICAL EXTREMITY IMAGING W/O ASS CONTRAST MATRL RADEX 34778 [place] JANEE SHOULDER 5 MEDICAL DANIELLA COMPLETE IMAGING MINIMUM 2 ASS VIEWS THERAPEUT 35277 MACKENZIE MANN IC 5 [facility] TIC/DX INJECTION SUBQ/IM URINE 86183 [facility] DUSTIN 5 PHYSICIAN TOBY TEST S GROUP VISUAL COLOR CMPRSN METHS IAADIADOO 45191 MACKENZIE MUNSON 5 [facility] CCUS GROUP A SEDIMENTA 39131 MACKENZIE MANN TION RATE 5 [facility] HOSP RBC INC INC NON-AUTOM ATED THERAPEUT 77315 HMNiraj AMIN IC 5 PHYSICIAN STONE PROPHYLAC S GROUP BILL HICKS TIC/DX INJECTION SUBQ/[place] [address] MACKENZIE MANN THYROID 5 [facility] STIMULATI INC INC NG HORMONE TSH INJECTION J1040 [facility] AMIN 5 PHYSICIAN RENDON METHYLPRE S GROUP BILL HICKS DNISOLONE ACETATE 80 MG ANTINUCLE 38681 MACKENZIE MANN AR 5 [facility] [place] [address] MACKENZIE MANN THYROXINE 5 [facility] TOTAL INC INC RHEUMATOI 01134 MACKENZIE MANN D FACTOR 5 [facility] QUANTITAT INC INC DACIA RADEX 49552 MACKENZIE MANN HAND 5 [facility] MINIMUM 3 INC INC VIEWS RADEX 88306 MACKENZIE MANN FOREARM 2 5 [facility] VIEWS INC INC RADEX 52600 [facility] SPINE 5 WILLIAM WILLIAM LUMBOSACR AL 2/3 VIEWS CYTP C/V 43606 [facility], PICKLESIM AUTO THIN 5 LLC ER JR BEAU LYR PREPJ SCR MNL RESCR PHYS CHIROPRAC 59161 JANNETH [facility] TIC 5 WILLIAM WILLIAM MANIPULAT [place] SPINAL 1-2 REGIONS INTRAUTER J7300 [facility] INE 3 [facility]ALTH OTBY COPPER CLINIC OF CONTRACEP [place] TIVE URINE 56644 [facility] 3 HEALTH TOBY TEST CLINIC OF VISUAL [place] COLOR CMPRSN METHS INSERTION 84878 [facility] INTRA[facility]ER [facility]IN[facility] OF CLINIC OF INE [place] DEVICE IUD CYTP C/V 52058 PATHOLOGY PICKLESIM AUTO THIN 3 & ER JR BEAU LYR CYTOLOGY PREPJ SCR LAB MNL RESCR PHYS VAGINAL 11615 [facility] DELIVERY 3 HEALTH TOBY ONLY CLINIC OF W/POSTPAR [place] GAYE CARE NEURAXIAL 19505 [facility] LABOR 3 ANESTH ANALG/ANE OF THE S PLND [place] 7569 MACKENZIE MANN OTHER 3 [facility] CURRENT INC INC OBSTETRIC LACERATIO N 60898 MACKENZIE MANN NONSTRESS 3 [facility] TEST INC INC URNLS DIP 59465 MACKENZIE MANN 3 [facility] STICK/TAB INC INC LET REAGENT AUTO MICROSCOP Y US PREG 58359 [facility] UTER[facility] 3 YAZDANISM YAZDANISM REAL TIME HOSP HOSP F/U TRNSABDL PER FETUS US PREG 32691 [facility] UTERUS 3 HEALTH TOBY REAL TIME CLINIC OF F/U [place] TRNSABDL PER FETUS 91400 [facility] BIOPHYSIC 3 HEALTH TOBY AL CLINIC OF PROFILE [place] W/O NON-STRES S TESTING DOPPLER 45105 [facility] VELOCIMET 3 HEALTH TOBY RY CLINIC OF UMBILICAL [place] ARTERY CULTURE 46267 MACKENZIE MANN BACTERIAL 3 [facility] INC INC QUANTTATI VE COLONY COUNT URINE URNLS DIP 00444 MACKENZIE MANN 3 [facility] STICK/TAB INC INC LET REAGENT AUTO MICROSCOP Y 23492 [facility] NONSTRESS 3 HEALTH TOBY TEST CLINIC OF [place] CUL BACT 24814 COMBINED COMBINED XCPT 3 PHYSICIAN PHYSICIAN URINE S LA S LA BLOOD/STO OL AEROBIC ISOL 91114 [facility] BIOPHYSIC 3 HEALTH TOBY AL CLINIC OF PROFILE [place] W/O NON-STRES S TESTING 07281 MACKENZIE MANN NONSTRESS 3 [facility] TEST INC INC US PREG 51716 MACKENZIE MANN UTERUS 3 [facility] REAL TIME INC INC F/[place] [address] MACKENZIE MANN MAGNESIUM 3 [facility] INC INC DOPPLER 37298 MACKENZIE MANN VELOCIMET 3 [facility] RY INC INC [facility] 01604 [facility] DISCHARGE 3 HEALTH TOBY DAY CLINIC OF MANAGEMEN [place] T 30 MIN/< 14709 [facility] BIOPHYSIC 3 MEDICAL DANIELLA AL IMAGING PROFILE ASS NON-STRES S TESTING 16762 MACKENZIE MANN BIOPHYSIC 3 [facility] AL INC INC PROFILE W/O NON-STRES S TESTING CREATININ 63419 MACKENZIE MANN E OTHER 3 [facility] [place] [address] MACKENZIE MANN MAGNESIUM 3 [facility] INC INC 22398 MACKENZIE MANN NONSTRESS 3 [facility] TEST INC INC PROTEIN 45233 MACKENZIE MANN XCPT 3 [facility] REFRACTOM INC INC ETRY SERUM PLASMA/WH L [facility] G0378 MACKENZIE MANN OBSERVATI 3 [facility] ON INC INC SERVICE PER HOUR SBSQ 71186 [facility] 3 HEALTH TOBY CARE/DAY CLINIC OF 15 [place] MINUTES THROMBOPL 64792 MACKENZIE MANN ASTIN 3 [facility] TIME INC INC PARTIAL PLASMA[place] [address] MACKENZIE MANN BLOOD/URI 3 [facility] C ACID INC INC HOSPITAL G0378 MACKENZIE MANN OBSERVATI 3 [facility] ON INC INC SERVICE PER HOUR BLOOD 74398 MACKENZIE MANN COUNT 3 [facility]OS[facility] COMPLETE INC INC AUTO&AUTO DIFRNTL WBC 97566 MACKENZIE MANN NONSTRESS 3 [facility] TEST INC INC PROTHROMB 17630 MACKENZIE MANN IN TIME 3 [facility]OS[facility] INC INC FIBRINOGE 40876 MACKENZIE MANN N 3 [facility] ACTIVITY INC INC FIBRIN 15964 MACKENZIE MANN DGRADJ 3 MEM [facility] PRODUCTS INC INC D-DIMER QUAL/[place] [address] MACKENZIE MANN MAGNESIUM 3 [facility] INC INC TRANSFERA 45148 MACKENZIE MANN SE 3 [facility] ALANINE INC INC AMINO ALT SGPT FTL 05087 MACKENZIE MANN FIBRONECT 3 [facility] IN INC INC CERVICOVA G SECRETION S SEMI-FRANSISCA URNLS DIP 43665 MACKENZIE MANN 3 [facility] STICK/TAB INC INC LET REAGENT AUTO MICROSCOP Y INITIAL 88410 [facility] 3 HEALTH TOBY CARE/DAY CLINIC OF 50 [place] MINUTES TRANSFERA 65670 MACKENZIE MANN SE 3 [facility] ASPARTATE INC INC AMINO AST SGOT EVAL C/V 83559 MACKENZIE MANN AMNIOTIC 3 [facility] FLUID INC INC PROTEIN QUAL EA SPECIMEN BASIC 57329 MACKENZIE MANN METABOLIC 3 [facility] PANEL INC INC CALCIUM TOTAL GLUC BLD 10388 [facility] GLUC MNTR 3 DANIELLA DEV DIAGNOSTI CLEARED CCENTER FDA SPEC HOME USE US PREG 40923 [facility] UTERUS 3 DANIELLA W/DETAIL DIAGNOSTI CCENTER TANVIR 1ST GESTATION 92009 [facility] BIOPHYSIC 3 DANIELLA AL DIAGNOSTI PROFILE CCENTER W/O NON-STRES S TESTING 96161 [facility] BIOPHYSIC 3 HEALTH TOYB AL CLINIC OF PROFILE [place] W/O NON-STRES S TESTING DOPPLER 33454 [facility] VELOCIMET 3 HEALTH TOBY RY CLINIC OF UMBILICAL [place] ARTERY US PREG 02859 [facility] UTERUS 3 HEALTH TOBY REAL TIME CLINIC OF F/U [place] TRNSABDL PER FETUS CULTURE 45380 MACKENZIE MACKENZIE BACTERIAL 3 [facility] INC INC QUANTTATI VE COLONY COUNT URINE FTL 17999 MACKENZIEDAYNA MANN FIBRONECT 3 [facility] IN INC INC CERVICOVA G SECRETION S SEMI-FRANSISCA URNLS DIP 83069 MACKENZIE MACKENZIE 3 [facility] STICK/TAB INC INC LET REAGENT AUTO MICROSCOP Y THERAPEUT 48107 MACKENZIE MANN IC 3 [facility] PROPHYLAC INC INC TIC/DX INJECTION SUBQ/IM 07170 MACKENZIE MANN NONSTRESS 3 [facility] TEST INC INC CUL BACT 81013 COMBINED COMBINED XCPT 3 PHYSICIAN PHYSICIAN URINE S LA S LA BLOOD/STO OL AEROBIC ISOL I&D 77928 [facility] VULVA/PER 3 HEALTH TOBY INEAL CLINIC OF ABSCESS [place] 70238 DEVIN HERNANDEZ NONSTRESS 3 DAVID [place]OWER [place] TEST FTL 01759 MACKENZIE MANN FIBRONECT 3 [facility] IN INC INC CERVICOVA G SECRETION S SEMI-FRANSISCA URNLS DIP 38481 MACKENZIE MANN 3 [facility] STICK/TAB INC INC LET REAGENT AUTO MICROSCOP Y US PREG 64478 [facility] UTERUS 3 HEALTH TOBY REAL TIME CLINIC OF F/U [place] TRNSABDL PER FETUS DOPPLER 56690 [facility] VELOCIMET 3 HEALTH TOBY RY CLINIC OF UMBILICAL [place] ARTERY 86736 [facility] BIOPHYSIC 3 HEALTH TOBY AL CLINIC OF PROFILE [place] W/O NON-STRES S TESTING 32403 [facility] HARPEL NONSTRESS 3 PHYSICIAN JERRICA TEST GROUP PCC GLUCOSE 71733 [facility] TOLERANCE 3 HEALTH TOBY TEST GTT CLINIC OF 3 [place] SPECIMENS US PREG 24588 [facility] UTERUS 3 HEALTH TOBY AFTER 1ST CLINIC OF TRIMEST [place] 1/ GESTATION CULTURE 66427 COMBINED COMBINED BACTERIAL 3 PHYSICIAN PHYSICIAN S LA S LA QUANTTATI VE COLONY COUNT URINE URNLS DIP 16728 MACKENZIE MANN 3 [facility] STICK/TAB INC INC LET REAGENT AUTO MICROSCOP Y CULTURE 22790 MACKENZIE MANN BACTERIAL 3 [facility] INC INC QUANTTATI VE COLONY COUNT URINE ALPHA-FET 14272 MACKENZIE MANN OPROTEIN 3 [facility] SERUM INC INC GONADOTRO 09153 MACKENZIE MANN PIN 3 [facility] CHORIONIC [place] [address] MACKENZIE MANN ESTRIOL 3 [facility] INC INC MEDICAL 22066 MACKENZIE MANN NUTRITION 3 [facility] CENTER ASSMT&IVN TJ INDIV EACH 15 TN US PREG 72371 [facility] UTERUS 3 HEALTH TOBY REAL TIME CLINIC OF W/IMAGE [place] DCMTN TRANSVAG CYTP C/V 91118 PATHOLOGY PICKLESIM AUTO THIN 3 & ER JR BEAU LYR CYTOLOGY PREPJ SCR LAB MNL RESCR PHYS IADNA 13670 PATHOLOGY PICKLESIM NEISSERIA 3 & ER JR BEAU CYTOLOGY GONORRHOE LAB AE AMPLIFIED PROBE TQ IADNA 45157 PATHOLOGY PICKLESIM CHLAMYDIA 3 & ER JR BEAU CYTOLOGY TRACHOMAT LAB IS AMPLIFIED PROBE TQ URINE 31550 MACKENZIE MANN 2 [facility] TEST CENTER CENTER VISUAL COLOR CMPRSN METHS COLPOSCOP 63257 [facility] Y VULVA 1 HEALTH TOBY CLINIC OF [place] CYTP C/V 26977 PATHOLOGY PATHOLOGY AUTO THIN 1 & & LYR CYTOLOGY CYTOLOGY PREPJ SCR LAB LAB MNL RESCR PHYS CYTP 38528 PATHOLOGY PATHOLOGY CERVICAL/ 1 & & VAGINAL CYTOLOGY CYTOLOGY REQ LAB LAB INTERP PHYSICIAN IADNA 93352 PATHOLOGY PATHOLOGY PAPILLOMA 1 & & VIRUS CYTOLOGY CYTOLOGY HUMAN LAB [place] [address] CHIPPS PICKLESIM SURG 1 FRIEDA & ER JR BEAU PATHOLOGY DUBILIER GROSS&SHAQUILLE ROSCOPIC EXAM COLPOSCOP 04426 [facility] Y CERVIX 1 HEALTH TOBY BX CERVIX CLINIC OF & [place] ENDOCRV CURRETAGE FRAMES V2020 [facility] PURCHASES 1 VISION ANG OPHTH 06525 [facility] MEDICAL 1 VISION ANG XM&EVAL COMPRE NEW PT 1/> VST FITTING 49025 [facility] SPECTACLE 1 VISION ANG S XCPT APHAKIA MONOFOCAL SPHERE V2100 [facility] SINGLE 1 VISION ANG VISION PLANO +/- 4.00 PER LENS DESTRUCTI 07269 WOMEN'S WOMEN'S ON 1 HEALTH HEALTH LESIONS [facility] [place] [address] SURG 1 FRIEDA & PATHOLOGY DUBIL[place] [address] SURG 1 FRIEDA & PATHOLOGY DUBILIER GROSS&SHAQUILLE ROSCOPIC EXAM COLPOSCOP 27022 [facility]OMEN'S CHAN Y CERVIX 1 HEALTH TOBY BX CERVIX [facility] ENDOCRV CURRETAGE CONTRACEP A4267 MACKENZIE MANN TIVE 1 [facility] SUPPLY DUE [facility] CONDOM MALE EACH IADNA 40706 MACKENZIE MANN NEISSERIA 1 [facility] GONORRHOE AE AMPLIFIED PROBE TQ AMINES 91881 MACKENZIE MANN VAGINAL 1 [facility] FLUID DUE [facility] QUALITATI VE PH BODY 28392 MACKENZIE MANN FLUID NOT 1 [facility] ELSEWHERE SPECIFIED CYTP 55111 PATHOLOGY PATHOLOGY CERVICAL/ 1 & & VAGINAL CYTOLOGY CYTOLOGY REQ LAB LAB INTERP PHYSICIAN WET Q0111 MACKENZIE MANN EVGENY 1 [facility] HEALTH INCL PREP CENTER CENTER VAGINAL CERV/SKIN SPECIMENS CYTP 70030 PATHOLOGY PATHOLOGY CERV/VAG 1 & & AUTO THIN CYTOLOGY CYTOLOGY LAYER LAB LAB PREP MNL SCREEN IADNA 98010 MACKENZIE MANN CHLAMYDIA 1 [facility] TRACHOMAT IS AMPLIFIED PROBE TQ ALL Q0112 MACKENZIE MANN POTASSIUM 1 [facility] HYDROXIDE PREPARATI ONS SMR PRIM 78951 MACKENZIE MANN SRC WET 1 [facility] [address] MACKENZIE MANN STREPTOCO 0 [facility] CCUS INC INC GROUP A INSERTION 44790 [facility]S [facility]AN 0 [facility] TOBY IMPLANTAB [facility] [place] CONTRACEP TIVE CAPSULES ETONOGEST J7307 [facility]OMEN'S CHAN REL 0 HEALTH TOBY CNTRACPT CLINIC OF IMPL SYS [place] INCL IMPL & SPL URINE 08681 [facility] 0 HEALTH TOBY TEST CLINIC OF VISUAL [place] COLOR CMPRSN METHS IIV3 34994 MACKENZIE MANN VACCINE 0 [facility] SPLIT DUE [facility] VIRUS 0.5 ML DOSAGE IM USE IAADIADOO 26976 SELLERS SELLERS 0 DON [place] [address] PATHOLOGY PATHOLOGY SURG 0 & & PATHOLOGY CYTOLOGY CYTOLOGY LAB LAB GROSS&SHAQUILLE ROSCOPIC EXAM IADNA 21071 PATHOLOGY PATHOLOGY NEISSERIA 0 & & CYTOLOGY CYTOLOGY GONORRHOE LAB LAB AE AMPLIFIED PROBE TQ CYTP 16254 PATHOLOGY PATHOLOGY CERVICAL/ 0 & & VAGINAL CYTOLOGY CYTOLOGY REQ LAB LAB INTERP PHYSICIAN CYTP C/V 42443 PATHOLOGY PATHOLOGY AUTO THIN 0 & & LYR CYTOLOGY CYTOLOGY PREPJ SCR LAB LAB MNL RESCR PHYS IADNA 05727 PATHOLOGY PATHOLOGY CHLAMYDIA 0 & & CYTOLOGY CYTOLOGY TRACHOMAT [place] [address] WOMENAlissonS DUSTIN, TRANSVAGI 0 [facility] [place] [address] SIGRID JANEE, ABDOMEN 0 MEDICAL JESÚS W/O & IMAGING W/CONTRAS ASSOCIATE T S MATERIAL CT PELVIS 32194 SIGRID JANEE, W/O & 0 MEDICAL JESÚS W/CONTRAS IMAGING T ASSOCIATE MATERIAL S URNLS DIP 85643 MACKENZIE MANN 0 [facility] STICK/TAB INC INC LET REAGENT AUTO MICROSCOP Y BLOOD 98130 MACKENZIE MANN COUNT 0 [facility] COMPLETE INC INC AUTO&AUTO DIFRNTL WBC COMPREHEN 28698 MACKENZIE MANN SIVE 0 [facility] [place] [address] MACKENZIE MANN INFUSION 0 [facility] THERAPY INC INC PROPHYLAX IS/DX EA HOUR 3D 97821 MACKENZIE MANN RENDERING 0 [facility] INC INC W/INTERP& POSTPROC DIFF WORK STATION URINE 87256 MACKENZIE MANN 0 [facility] TEST INC [place] [address] MACKENZIE MANN INFUSION 0 [facility] THERAPY/P INC INC ROPHYLAXI S /DX 1ST TO 1 HR RADIOLOGI 00585 SIGRID JANEE C EXAM 0 MEDICAL JESÚS CHEST 2 IMAGING VIEWS ASSOCIATE FRONTAL&[place] [address] NUBIA DAUGHERTY, XTRNL 9 EMERGENCY ANNIE R AUDITORY SERVICES CANAL W/O ANES ASSOCIATE S LEVONORGE J7302 JORDANAlissonS DUSTIN, STREL-RLS 9 [facility] E CLINIC OF INTRAUTER N ABE CNTRACPT PLLC 52 MG INSERTION 13971 WOMEN'S CHAN, 9 [facility] INTRAUTER CLINIC OF INE DEVICE CYNTHIROBERT IUD [facility] URINE 08793 WOMEN'S CHAN, 9 [facility] TEST CLINIC OF VISUAL COLOR CYNTHIROBERT CMPRSN [facility] METHS CYTP 60213 PATHOLOGY PATHOLOGY CERVICAL/ 9 & & VAGINAL CYTOLOGY CYTOLOGY REQ LAB LAB INTERP PHYSICIAN VAGINAL 24965 [facility]OMEN[facility]S CHAN, DELIVERY 9 [facility] ONLY CLINIC OF W/POSTPAR GAYE CARE [place] [facility] NEURAXIAL 73149 COMMUNITY CASTRO, LABOR 9 ANESTH ISAMAR F ANALG/ANE OF THE S PLND [place] VAGINAL DELIVERY REPAIR OF 7569 MACKENZIE MANN OTHER 9 [facility] CURRENT INC INC OBSTETRIC LACERATIO N INITIAL 81445 WOMEN'S CHAN, OBSERVATI 9 [facility] ON CLINIC OF CARE/DAY 50 [place] MINUTES [facility] DOPPLER 90658 WOMEN'S DUSTIN, VELOCIMET 9 [facility] RY CLINIC OF UMBILICAL ARTERY [place] [facility] US PREG 40092 WOMEN'S CHAN, UTERUS 9 [facility] REAL TIME CLINIC OF F/U TRNSABDL [place] PER FETUS [facility] 47253 WOMEN'S DUSTIN, BIOPHYSIC 9 [facility] AL CLINIC OF PROFILE W/O [place] NON-STRES [facility] S TESTING FRAMES V2020 CATHY ROSE, PURCHASES 9 VISION JOSE ELIAS A RPR&REFIT 97178 CATHY ROSE G 9 VISION JOSE ELIAS A SPECTACLE S EXCEPT [place]HAKIA SPHERE V2100 CATHY ROSE, SINGLE 9 VISION JOSE ELIAS A VISION PLANO +/- 4.00 PER LENS OPHTH 12171 NUBIA DELACRUZ, MEDICAL 9 HARJEET COSBY XM&EVAL W W COMPRE NEW PT 1/> VST DETERMINA 76931 NUBIA DELACRUZ, TIDAYNA 9 HARJEET COSBY REFRACTIV W W E STATE CUL BACT 24672 COMBINED COMBINED XCPT 9 PHYSICIAN PHYSICIAN URINE S LAB S LAB BLOOD/STO OL AEROBIC ISOL IAADIADOO 07928 SELLERSVERITO Doran, 9 DON R DON R STREPTOCO CCUS GROUP A 86256 WOMEN'S CHAN, NONSTRESS 9 [facility] J TEST CLINIC OF [place] [facility] GLUCOSE 78291 [facility]OMEN'S CHAN, TOLERANCE 9 [facility] J TEST GTT CLINIC OF 3 SPECIMENS [place] [facility] COLLECTIO 48992 [facility]OMEN'S CHAN, N 9 [facility] J CAPILLARY CLINIC [facility] GLUCOSE 05889 WOMEN'S CHAN, POST 9 [facility] J GLUCOSE [facility] US PREG 01642 WOMEN'S CHAN, UTERUS 8 [facility] J REAL TIME CLINIC OF F/U TRNSABDL [place] PER FETUS [facility] US PREG 05755 WOMEN'S CHAN, UTERUS 8 [facility] J AFTER CLINIC OF TRIMEST [place] GESTATION [facility] REPAIR OB 75.69 Volodymyr Suarez NEC Encounters Encounter Start End Date Code Location Performer Type Date OFFICE 48770 [facility]ENT SAUNDERS OUTPATIEN 6 6 MEDICAL T VISIT SERV 15 [facility] MINUTES N HOSPITAL UNIVERSIT - 6 6 Y [facility] T OFFICE 56956 BRENT SAUNDERS CONSULTAT 6 6 MEDICAL ION SERV NEW/ESTAB FOUNDATIO PATIENT N 60 MIN OFFICE 92823 [facility] OUT[facility] 6 6 PHYSICIAN JAVI T VISIT S GROUP 10 MINUTES EMERGENCY 68825 [facility] 6 6 [facility] DEPARTMEN INC T VISIT LOW/MODER SEVERITY EMERGENCY 59083 HANG STEINER 6 6 PHYSICIAN JOSE FRENCH S, [facility] T VISIT MODERATE SEVERITY HOSPITAL [facility] - 6 6 [facility] OUTPATIEN INC T OFFICE 04151 [facility] OUTPATIEN 6 6 PHYSICIAN JAM T VISIT S GROUP 10 MINUTES OFFICE 26905 [facility] OUTPATIEN 6 6 PHYSICIAN JAM T VISIT S GROUP 10 MINUTES EMERGENCY 16748 HANG DECKER 6 6 PHYSICIAN Anabel [facility]ENCH S, [facility] HIGH/URGE NT SEVERITY OFFICE 18383 [facility] OUTPATIEN 6 6 PHYSICIAN JAM T VISIT S GROUP 15 MINUTES OFFICE 38703 [facility] CHAN OUTPATIEN 6 6 PHYSICIAN TOBY T VISIT S GROUP 15 MINUTES HOSPITAL [facility] - 6 6 [facility] OUTPATIEN INC T OFFICE 02187 [facility] OUTPATIEN 6 6 PHYSICIAN JAM T VISIT S GROUP 15 MINUTES HOSPITAL [facility] - 6 6 [facility] OUTPATIEN INC T [facility]OSPITAL [facility] - 5 5 [facility] OUTPATI[facility] INC T OFFICE 25468 [facility] OUTPATIEN 5 5 PHYSICIAN JAVI T NEW 30 S GROUP MINUTES OFFICE 00780 [facility] MUNSON OUTPATIEN 5 5 [facility] 15 MINUTES OFFICE 58336 [facility] CHAN OUTPATIEN 5 5 PHYSICIAN TOBY T VISIT S GROUP 15 MINUTES OFFICE 73328 [facility] MUNSON OUTPATIEN 5 5 [facility] 10 MINUTES HOSPITAL [facility] - 5 5 [facility] OUTPATIEN INC T OFFICE 86459 [facility] AMIN OUTPATIEN 5 5 PHYSICIAN JUSTICE T NEW 30 S GROUP BILL HICKS MINUTES OFFICE 30092 [facility] TODD OUTPATIEN 5 5 [facility] 15 [facility] HOSPITAL [facility] - 5 5 [facility] OUTPATIEN INC T PERIODIC 52949 [facility] PREVENTIV 5 5 PHYSICIAN E MED EST S GROUP PATIENT 18-39 YRS EMERGENCY 15966 HANG DECKER 5 5 PHYSICIAN Anabel Doran [facility] T VISIT MODERATE SEVERITY Inpatient ROBB Chan MD (IN) 3 04:42 3 12:45 [facility] - 3 3 [facility] INPATIENT INC OFFICE 82835 [facility] OUTPATIEN 3 3 HEALTH TOBY T VISIT CLINIC OF 15 [place] MINUTES OFFICE 61721 DEVIN HERNANDEZ OUTPATIEN 3 3 [facility] T VISIT 15 MINUTES HOSPITAL [facility] - 3 3 [facility] T OFFICE 70799 DEVIN HERNANDEZ OUTPATIEN 3 3 [facility] [place] T VISIT 15 MINUTES HOSPITAL CENTRAL - 3 3 [facility] OUTPATIEN HOSP HOSPITAL [facility] - 3 3 [facility] T OFFICE 97196 [facility] OUTPATIEN 3 3 [facility]BY T VISIT CLINIC OF 15 [place] MINUTES OFFICE 19333 [facility] OUTPATIEN 3 3 [facility] T VISIT CLINIC OF 15 [place] MINUTES Inpatient ROBB Chan MD (IN) 3 12:52 3 12:18 [facility] [place]ENZ[place] - 3 3 [facility] H[facility]PITAL C[facility]AL - 3 3 YAZDANISM OUTPATIEN HOSP T OFFICE 06015 TOYA CONSULTAT 3 3 DANIELLA ION DIAGNOSTI NEW/ESTAB CCENTER PATIENT 15 MIN HOSPITAL [facility] - 3 3 [facility]PITAL [facility] - 3 3 [facility] T OFFICE 21699 DEVIN HERNANDEZ OUTPATIEN 3 3 [facility] [place] T VISIT 15 MINUTES OFFICE 00405 [facility] OUTPATIEN 3 3 [facility]ALTH [facility]BY T VISIT CLINIC OF 15 [place] MINUTES OFFICE 48305 [facility] OUTPATIEN 3 3 [facility]ALTH TOBY T VISIT CLINIC OF 15 [place] MINUTES OFFICE 28810 [facility] OUTPATIEN 3 3 [facility]ALTH TOBY T VISIT 5 CLINIC OF MINUTES [place] OFFICE 53797 [facility] OUTPATIEN 3 3 [facility] T VISIT CLINIC OF 15 [place] MINUTES OFFICE 04963 [facility] OUTPATIEN 3 3 [facility] T VISIT CLINIC OF 15 [place] MINUTES Emergency CIARA Adhikari MD (ER) 3 20:50 3 22:20 [facility] EMERGENCY 10498 NUBIA ADHIKARI 3 3 EMERGENCY [facility] DEPARTMEN SERVICES T VISIT HIGH/URGE NT SEVERITY HOSPITAL [facility] - 3 3 [facility] OUTPATIEN INC T EMERGENCY 79991 [facility] 3 3 [facility] DEPARTMEN INC T VISIT LOW/MODER SEVERITY HOSPITAL [facility] - 3 3 [facility] OUTPATIEN INC T OFFICE 78093 [facility] OUTPATIEN 3 3 [facility]ALTH [facility] T VISIT CLINIC OF 15 [place] MINUTES OFFICE 17844 [facility] OUTPATIEN 3 3 [facility] T VISIT CLINIC OF 15 [place] MINUTES OFFICE 37385 [facility] OUTPATIEN 3 3 HEALTH TOBY T VISIT CLINIC OF 15 [place] MINUTES HOSPITAL [facility] - 2 2 [facility] OUTPATIEN INC T EMERGENCY 46003 [facility] 2 2 [facility] DEPARTMEN INC T VISIT LOW/MODER SEVERITY EMERGENCY 53191 NUBIA ADHIKARI 2 2 EMERGENCY [facility] DEPARTMEN SERVICES T VISIT HIGH/URGE NT SEVERITY OFFICE 58672 [facility] MANN OUTPATIEN 2 2 [facility] T VISIT CENTER CENTER 15 MINUTES INITIAL 61523 [facility] MANN PREVENTIV 1 1 [facility] E DUE [facility] MEDICINE NEW PT AGE 18-39YRS [facility] - 0 0 [facility] OUTPATIEN INC T EMERGENCY 59863 NUBIA ALFORD 0 0 EMERGENCY [facility] DEPARTMEN SERVICES T VISIT MODERATE SEVERITY EMERGENCY 61246 [facility] 0 0 [facility] DEPARTMEN INC T VISIT LOW/MODER SEVERITY OFFICE 85356 VERITO SELLERS OUTPATIEN 0 0 DON DON T VISIT 15 MINUTES OFFICE 38491 VERITO SELLERS OUTPATIEN 0 0 DON DON T VISIT 15 MINUTES EMERGENCY 71496 NUBIA ADHIKARI, 0 0 EMERGENCY [facility] SERVICES T VISIT HIGH/URGE ASSOCIATE NT S SEVERITY HOSPITAL [facility] - 0 0 [facility] OUTPATIEN INC T EMERGENCY 92655 [facility] 0 0 [facility] DEPARTMEN INC T VISIT LOW/MODER SEVERITY PERIODIC 48474 [facility], PREVENTIV 0 0 HEALTH [facility] J E MED EST CLINIC OF PATIENT 18-39 YRS [facility] OFFICE 19543 VERITO SELLERS, OUTPATIEN 0 0 DON R DON R T VISIT 15 MINUTES OFFICE 65881 [facility], OUTPATIEN 0 0 [facility] J T VISIT CLINIC OF 15 MINUTES [facility] MACKENZIE - 0 0 [facility] OUTPATIEN INC T EMERGENCY 52326 [facility] 0 0 [facility] DEPARTMEN INC T VISIT MODERATE SEVERITY EMERGENCY 52374 NUBIA KALYN, DEPT 0 0 EMERGENCY NATAN S VISIT SERVICES HIGH SEVERITY& ASSOCIATE THREAT S [facility] EMERGENCY 77584 NUBIA LOPEZRODERICK, 9 9 EMERGENCY [facility] DEPARTMEN SERVICES O T VISIT HIGH/URGE ASSOCIATE NT S SEVERITY HOSPITAL [facility] - 9 9 [facility] OUTPATIEN INC T EMERGENCY 30412 NUBIA DAUGHERTY, 9 9 EMERGENCY ANNIE R DEPARTMEN SERVICES T VISIT MODERATE ASSOCIATE SEVERITY S EMERGENCY 36554 [facility] 9 9 [facility] DEPARTMEN INC T VISIT LOW/MODER SEVERITY OFFICE 43615 [facility], OUTPATIEN 9 9 HEALTH [facility] J T VISIT CLINIC OF 15 MINUTES [place] [facility] OFFICE 06506 [facility], OUTPATIEN 9 9 HEALTH V[facility] J T VISIT CLINIC OF 25 MINUTES [facility] OFFICE 70422 [facility], OUTPATIEN 9 9 HEALTH V[facility] J T VISIT CLINIC OF 15 MINUTES [facility] MACKENZIE - 9 9 [facility] INPATIENT INC OFFICE 87853 [facility], OUTPATIEN 9 9 HEALTH V[facility]MYR J T VISIT CLINIC OF 15 MINUTES [facility] OFFICE 30717 [facility] CH[facility], OUTPATIEN 9 9 HEALTH V[facility]ODYMYR J T VISIT CLINIC OF 15 MINUTES [facility] [facility] OFFICE 38576 [facility]EN[facility] CH[facility], OUTPATIEN 9 9 HEALTH V[facility] J T VISIT CLINIC OF 15 MINUTES [facility] [facility] OFFICE 28128 [facility] CH[facility], OUTPATIEN 9 9 HEALTH V[facility]ODYMYR J T VISIT CLINIC OF 15 MINUTES [facility] [facility] OFFICE 34302 [facility]EN[facility] CH[facility], OUTPATIEN 9 9 HEALTH V[facility] J T VISIT CLINIC OF 15 MINUTES [facility] [facility] OFFICE 62674 VERITO SELLERS OUTPATIEN 9 9 DON R DON R T VISIT 15 MINUTES OFFICE 90385 [facility], OUTPATIEN 9 9 HEALTH V[facility] J T VISIT CLINIC OF 15 MINUTES [facility] OFFICE 15243 [facility]OMEN[facility] CH[facility], OUTPATIEN 9 9 HEALTH V[facility]ODYMYR J T VISIT CLINIC OF 15 MINUTES [facility] [facility] OFFICE 89902 [facility]OMEN[facility] CH[facility], OUTPATIEN 9 9 HEALTH V[facility]ODYMYR J T VISIT CLINIC OF 15 MINUTES [facility] [facility] OFFICE 44333 [facility]OMEN[facility] CH[facility], OUTPATIEN 9 9 HEALTH VOLODYMYR J T VISIT 5 CLINIC OF MINUTES [facility] [facility] OFFICE 86518 [facility] CH[facility], OUTPATIEN 8 8 HEALTH V[facility]ODYMYR J T VISIT CLINIC OF 15 MINUTES [facility] [facility] OFFICE 36172 VERITO SELLERS OUTPATIEN 8 8 DON R DON R T VISIT 15 MINUTES OFFICE 66179 [facility], OUTPATIEN 8 8 HEALTH V[facility]ODYMYR J T VISIT CLINIC OF 15 MINUTES [place] [facility] OFFICE 30849 VERITO SELLERS OUTPATIEN 8 8 DON R DON R T VISIT 15 MINUTES
--- OUTSIDE RECORDS SUMMARY | 2016-09-16 13:38 | External Medical Summary Rpt ---
Author Author , Organization [employer] Address Unknown Phone Unavailable Care Team Providers Care Hull Line Crew Member Name Role Phone [employer] Unavailable Unavailable INC, [employer] Unavailable Unavailable INC, [employer] TIFFANIE FRA, TIFFANIE Unavailable Unavailable FRA GUERRERO TER, GUERRERO TER Unavailable Unavailable HEREDIA ALL, HEREDIA ALL Unavailable Unavailable [facility], Unavailable Unavailable [facility] CHIPPS FRIEDA & Unavailable Unavailable DUBILIER, CHIPPS FRIEDA & DUBILIER JOSH TER, JOSH TER Unavailable Unavailable JOSH MULLINSE Unavailable Unavailable VOLODYMYR BLANDON, Unavailable Unavailable VOLODYMYR CHNA [facility] Unavailable Unavailable [place], [facility] [...] Unavailable ANNIE DAUGHERTY HARPEL Unavailable Unavailable [facility] Unavailable Unavailable [facility] Unavailable Unavailable [facility] Unavailable Unavailable INC, [facility] Unavailable Unavailable [facility], JOSE ELIAS A, Unavailable Unavailable JOSE ELIAS ROSE [facility], Unavailable Unavailable [facility] PRASHANTH MCMANUS CHA Unavailable Unavailable [facility] Unavailable Unavailable [facility], [facility], Unavailable Unavailable [facility] CHLOE, CHLOE Unavailable Unavailable CHLOE MEKA, CHLOE Unavailable Unavailable MEKA Lex Adhikari MD, Unavailable Unavailable Lex BRADLEY SCO, MIRNA SAUNDERS Unavailable Unavailable [facility] Unavailable Unavailable SERVICES, [facility] HARJEET DELACRUZ, Unavailable Unavailable HARJEET [...] DON R, Unavailable Unavailable SELLERS, DON R [facility], Unavailable Unavailable [facility] Unavailable Unavailable [facility] Unavailable Unavailable #[id number], [id number] # Unavailable Unavailable [id number], [facility] # [id number] [facility] Unavailable Unavailable OF [place], [facility] [place] Purpose Continuity of Care Document - 01-27-2008 through 2016 Problems Code Diagnosis DOS Provider Status [id number] ENCOUNTER 02-07-2016 [facility] REMOVAL PHYSICIANS INTRAUTERIN GROUP E CONTRACEPT DEVICE G8918 OTHER ACUTE 12-27-2015 [facility] RAL PAIN Q64952 PAIN IN 12-27-2015 [place] [facility] RIGHT SERV SHOULDER FOUND[facility] [id number] SUPERIOR 12-27-2015 [facility]EN[facility] LABRUM LESION RT SHOULDER INIT T46690 OTHER 12-21-2015 [place] [facility] INSTABILITY SERV RIGHT [facility] SHOULDER M7581 OTHER 12-21-2015 [place] [facility] SH[facility] SERV LESIONS [facility]ATION RIGHT SHOULDER [id number] OTHER 12-13-2015 [facility] SH[facility] JOINT INITIAL ENCOUNTER [id number] STRAIN OTH 12-13-2015 [place] [facility] M&T SHLDR SERV UP ARM LEVL FOUNDATION RT ARM INIT ENC X6656NC UNS INJURY 12-13-2015 [facility] UPPER ARM UNS ARM INIT ENC Z049 ENCOUNTER 09-28-2015 [place] [facility] EXAMINATION SERV &OBSERVATIO [facility] FOR UNS REASON Q05705 PRIMARY 09-13-2015 [place] [facility] OSTEOARTHRI SERVICES TIS RIGHT SHOULDER B20020 PRIMARY 09-13-2015 [place] [facility] TIS LEFT HOSPI SHOULDER B18092 LOOSE BODY 09-13-2015 [facility] IN RIGHT SERVICES SHOULDER I88667 INCMPL RC 09-13-2015 [place] [facility] TEAR/RUPT SERVICES RT SHOULDER NOT SPEC TRAUM Q1172XI UNS INJURY 08-15-2015 [place] [facility] RT SH[facility]ER SERV UPPER ARM FOUNDATION INITIAL ENCNTR M03639L SPRAIN 08-14-2015 [facility] OTHER PHYSICIANS LIGAMENT LT GROUP ANKLE INITIAL ENCOUNTER R20767 PAIN IN 08-13-2015 [place] [facility] [id number] SPRAIN UNS 08-13-2015 [facility] [employer] LEFT ANKLE S INC INITIAL ENCOUNTER Q81972V SPRAIN 08-13-2015 [facility] T[facility]IOFIB[facility]A [facility]ANS, R LIGAMENT [facility] LT ANKLE INIT ENC Z720 TOBACCO USE 08-13-2015 [facility] M1990 UNSPECIFIED 06-21-2015 [facility] PHYSICIANS OSTEOARTHRI GROUP TIS UNSPECIFIED SITE M7541 IMPINGEMENT 06-21-2015 [facility] SYNDROME PHYSICIANS OF RIGHT GROUP SHOULDER M5432 SCIATICA 06-14-2015 [facility] LEFT SIDE [facility] M545 LOW BACK 06-14-2015 [facility] PAIN [facility] R071 CHEST PAIN 06-14-2015 [place] [facility] BREATHING [facility] R0789 OTHER CHEST 06-14-2015 [place] [facility] N762 ACUTE 04-20-2015 [facility] VULVITIS PHYSICIANS GROUP V26420 OTHER 04-14-2015 [place] SPECIFIED [facility] JOINT INC DISORDERS RIGHT SHOULDER N926 IRREGULAR 02-16-2015 [facility] MENSTRUATIO PHYSICIANS N GROUP UNSPECIFIED A44514 ENCOUNTER 02-16-2015 [facility] ROUTINE PHYSICIANS CHECKING IU GROUP CONTRACEPT DEVICE J029 ACUTE 02-13-2015 [place] PHARYNGITIS [facility] UNSPECIFIED J309 ALLERGIC 01-18-2015 [facility] RHINITIS PHYSICIANS UNSPECIFIED GROUP M2550 PAIN IN 01-18-2015 [facility] UNSPECIFIED PHYSICIANS JOINT GROUP Z8261 FAMILY 01-18-2015 [facility] HISTORY OF PHYSICIANS ARTHRITIS GROUP Z8269 FAM HX OTH 01-18-2015 [facility] DZ PHYSICIANS MUSCULOSKEL GROUP ETAL SYS&CONNECT IV TISS M129 ARTHROPATHY 01-16-2015 [facility] N11030 STIFFNESS 01-16-2015 [facility] OF LEFT MEM HOSP HAND NOT INC ELSEWHERE CLASSIFIED G18340 PAIN IN 01-16-2015 [place] LEFT MEDICAL FOREARM IMAGING ASS V27792 PAIN IN 01-16-2015 [place] LEFT HAND [facility]ICAL [facility] V7231 ROUTINE 11-17-2014 [facility] [place] EXAMINATION 54461 CONTUSION 09-25-2014 [facility]EE PHYSICIANS, [facility] 7242 LUMBAGO 06-28-2014 [facility] WILLIAM 7393 NONALLOPATH 06-28-2014 [facility] IC LESION WILLIAM OF [facility] V2511 ENC FOR 12-29-2012 [facility] INSERTION HEALTH INTRAUTERIN CLINIC OF E [place] CONTRACEPT DEVICE V242 ROUTINE 12-25-2012 PATHOLOGY & CYTOLOGY FOLLOW-UP LAB 656.61 656.61 11-06-2012 [facility] EXCESS [facility] 657.01 657.01 11-06-2012 [place] POLYHYDRAMN [facility] OR W/O MENTN ANTEPARTUM COND 663.31 663.31 CORD 11-06-2012 [place] ENTANGLE [facility] 664.01 664.01 DEL 11-06-2012 [place] W 1 DEG [facility] V27.0 V27.0 11-06-2012 [place] DELIVER-SIN [facility] LIVEBORN 650 NORMAL 11-04-2012 [facility] DELIVERY [facility] [place] 29324 POOR 11-04-2012 [facility] GROWTH HEALTH AFFECT CLINIC OF MANAGEMENT [place] MOTH DELIV 39412 EXCESS 11-04-2012 [facility] GROWTH INC AFFECT MANAGEMENT MOTH DELIV 58420 POLYHYDRAMN 11-04-2012 WOMEN'S IOS, WITH HEALTH DELIVERY [facility] [place] 39597 OTH&UNS CRD 11-04-2012 [facility] ENTANGL [facility] W/O COMPRS INC COMP L&D DELIV 92959 FIRST-DEGRE 11-04-2012 [facility] E PERINEAL [facility] LACERATION INC WITH DELIVERY V270 OUTCOME OF 11-04-2012 [facility]OMEN'S DELIVERY HEALTH SINGLE CLINIC OF LIVEBORN [place] V221 SUPERVISION 11-02-2012 WOMEN'S OF OTHER HEALTH NORMAL CLINIC [facility] [place] 53097 THREATENED 10-28-2012 [facility] PREMATURE [facility] LABOR INC ANTEPARTUM 23954 OTHER 10-28-2012 DEVIN HERNANDEZ MD LABOR, ANTEPARTUM 59429 UTERINE 10-23-2012 [facility] SIZE DATE CONGREGATION DISCREPANCY HOSP ANTPRTM COND/COMPL 64205 EXCESS 10-23-2012 DIAGNOSTICC GROWTH ENTER AFFECT MGMT MOTH ANTPRTM 51284 POLYHYDRAMN 10-23-2012 IOS DIAGNOSTICC ANTEPARTUM ENTER COMPLICATIO N V2389 SUPERVISION 10-23-2012 OF OTHER DIAGNOSTICC HIGH-RISK ENTER 642.93 642.93 10-05-2012 [facility] NOS-ANTEPAR Hospital GAYE 644.03 644.03 THRT 10-05-2012 [facility] LABOR-ANTEP Hospital ART 657.03 657.03 10-05-2012 [facility] CONDITION/C OMPLICATION V222 10-05-2012 [facility], MEDICAL INCIDENTAL IMAGING ASS 21193 UNSPECIFIED 10-03-2012 [facility] HYPERTENSIO INC N ANTEPARTUM 59360 OTH 09-25-2012 [facility] CARDIOVAS[facility] HOSP LAR DISEASES ANTEPARTUM 56693 DECR 09-14-2012 [facility] MOVMNTS [facility]P MGMT MOTH INC ANTPRTM COND/COMP 6164 OTHER 09-07-2012 [facility] [place] 55497 OTHER 09-07-2012 COMBINED POSTOPERATI PHYSICIANS VE LA INFECTION NEC V283 ENCOUNTER 07-02-2012 [facility] ROUTINE HEALTH SCREEN CLINIC OF MALFORMATIO [place] N ULTRASONIC 5990 URINARY 06-24-2012 [facility]EN'[facility] TRACT HEALTH INFECTION CLINIC OF SITE NOT [place] SPECIFIED 250.00 250.00 DIAB 06-15-2012 [facility] MELL [facility], TYPE Hospital II OR UNSPEC TYPE, NOT UNCNTRLD 04404 DIAB W/O 06-15-2012 [facility] COMP TYPE [facility] II/UNS NOT INC STATED UNCNTRL 784.0 784.0 06-15-2012 [facility] 7840 HEADACHE 06-15-2012 [facility] V22.2 V22.2 PREG 06-15-2012 [facility] 84139 OTH CURRENT 05-12-2012 [facility]-COMPL CENTER PG CB/PP-UNS EOC V653 DIETARY 05-12-2012 [place] COUNSELING 49172 OTHER 04-09-2012 [facility] SPECIFED HEALTH COMPLICATIO CLINIC OF N [place] ANTEPARTUM V745 SCREENING 04-01-2012 PATHOLOGY & EXAMINATION CYTOLOGY FOR LAB VENEREAL DISEASE 6259 UNSPEC 03-17-2012 [facility] W/FEMALE GENITAL ORGANS V7242 03-11-2012 [place] EXAMINATION HEALTH OR TEST CENTER POSITIVE RESULT 71331 CONDYLOMA 12-19-2010 [facility] ACUMINATUM [facility] [place] 0794 HUMAN 11-22-2010 [facility] PAPILLOMA FRIEDA & VIRUS IN DUBILIER CCE & UNS SITE 6160 CERVICITIS 11-22-2010 [facility] AND FRIEDA & ENDOCERVICI DUBILIER TIS 45045 MILD 11-22-2010 [facility] DYSPLASIA FRIEDA & OF CERVIX DUBILIER 75112 PAP SMER 11-22-2010 PATHOLOGY & CERV CYTOLOGY W/ATYPICAL LAB SQUAMOUS CELLS UNDET 53359 PAP ER 11-22-2010 WOMEN'S CERV W/LW HEALTH GRADE CLINIC OF SQUAMOUS [place] INTRAEPITH LES 3671 MYOPIA 10-26-2010 [facility] 2662 OTHER 05-01-2010 [facility] B-COMPLEX HEALTH DEFICIENCIE CENTER S V1589 OTH SPEC 05-01-2010 PATHOLOGY & PERS HX CYTOLOGY PRESENTING LAB HAZARDS HEALTH OTH V2549 SURVEILLANC 05-01-2010 [facility] E OT PREV HEALTH PRSC CENTER CONTRACEPT METHOD 462 ACUTE 02-11-2010 [facility] PHARYNGITIS [facility]Y SERVICES 86923 NAUSEA 02-11-2010 [facility]ONE [facility] SERVICES V255 INSERTION 01-30-2010 WOMEN'S OF HEALTH IMPLANTABLE CLINIC OF SUBDERMAL [place] CONTRACEPTI VE V0481 NEED 01-26-2010 [facility] VACC[facility] &INOCULATIO N FLU 8472 LUMBAR 01-01-2010 SELLERS SPRAIN AND DON STRAIN 463 ACUTE 11-21-2009 SELLERS TONSILLITIS DON 29734 ABDOMINAL 05-12-2009 WOMEN'S PAIN RIGHT HEALTH LOWER CLINIC OF [place]ANT [place] [facility] 25441 ABDOMINAL 05-05-2009 WOMEN'S PAIN, LEFT HEALTH LOWER CLINIC OF [place] [facility] 99289 CHEST PAIN 04-03-2009 [place] [facility] 62423 ABDOMINAL 04-03-2009 [facility] UPPER IMAGING [facility] 75111 ABDOMINAL 04-03-2009 [facility] PAIN OTHER EMERGENCY SPECIFIED SERVICES SITE ASSOCIATES 9249 CONTUSION 04-03-2009 [facility] OF EMERGENCY UNSPECIFIED SERVICES SITE ASSOCIATES 10566 OTHER 09-06-2008 [facility] DISEASES OF EMERGENCY NASAL SERVICES CAVITY AND ASSOCIATES SINUSES 7869 OTH 09-06-2008 [facility] SYMPTOMS EMERGENCY INVOLVING SERVICES RESPIRATORY ASSOCIATES SYSTEM&CHES T [address] VOMITING 09-06-2008 [facility] ALONE [facility]ERGENCY SERVICES ASSOCIATES 57796 DIARRHEA 09-06-2008 [facility] 43983 UNSPECIFIED 09-01-2008 [facility] INFECTIVE EMERGENCY OTITIS SERVICES EXTERNA ASSOCIATES 3829 UNSPECIFIED 09-01-2008 [facility] OTITIS [facility]ERGENCY MEDIA SERVICES ASSOCIATES 70788 MATERNAL 08-24-2008 WOMEN'S MENTAL D/O HEALTH CLINIC OF COND/COMPLI [place] CATION [facility] V251 ENCOUNTER 08-24-2008 WOMEN'S INSERT/ROBBIE HEALTH RADHA IU CLINIC OF CONTRACEPTI [place] VE DEVICE [facility] 32766 OLIGOHYDRAM 07-13-2008 WOMEN'S NIOS, HEALTH DELIVERED CLINIC OF [place] [facility] 68304 OLIGOHYDRAM 07-12-2008 WOMEN'S NIOS, HEALTH ANTEPARTUM CLINIC OF [place] [facility] 03274 POST TERM 07-11-2008 WOMEN'S HEALTH ANTEPARTUM CLINIC OF COND/COMPLI [place] CATION [facility] V220 SUPERVISION 07-04-2008 WOMEN'S OF NORMAL HEALTH FIRST CLINIC OF [place] [facility] 4659 ACUTE URIS 05-31-2008 VERITO, OF DON R UNSPECIFIED SITE 14524 OTH CURRENT 05-10-2008 [facility] CLASSIFIABL CLINIC OF [place] DO [facility] M54.9 DORSALGIA, UNSPECIFIED S80.00XA CONTUSION OF UNSPECIFIED [...] 5- 9- 00 MA 34 KE ve CO 34 20 20 RT 4 AM 43 11 11 DE 0 PH RE HB AR K R MA J 40 CY # MG 10 TA 05 BL 91 ET CI 55 08 08 11 15 30 WA 71 CL Ac TA 11 -2 -2 .0 L- 32 AR ti LO 10 5- 5- 00 MA 34 KE ve CO 34 20 20 RT 4 AM 43 11 11 DE 0 PH RE HB AR K R MA J 40 CY # MG 10 TA 05 BL 91 ET LI 00 08 08 1 35 10 LA 71 CL Ac DO 16 -2 -2 [...] M MA CY # 10 05 91 CO 68 11 11 0 15 5 WA [...] IB 68 11 11 0 21 7 LA 70 CALVIN Ac UP 64 -1 -1 [...] 20 20 RT 8 70 10 10 IA 5 PH CH AR AE MA L CY S # 10 05 91 DI 00 06 06 0 14 7 LA 70 GA Ac CL 78 -1 -1 .0 L- 74 IN ti OF 11 2- 3- 00 MA 52 EY ve EN 78 20 20 RT 4 AC 90 10 10 IA 1 PH CH SO AR AE D MA L EC CY S # 75 10 MG 05 91 TA B 00 06 06 0 14 7 LA 70 GA Ac 37 -1 -1 .0 L- 74 IN ti 80 2- 3- 00 MA 52 EY ve 75 20 20 RT 5 19 10 10 IA 3 PH CH AR AE MA L CY S # 10 05 91 AM 00 03 03 0 [address] Ac OX 78 -0 -0 .0 L- 60 EP ti IC 12 2- 2- 00 MA 62 HE ve IL 61 20 20 RT 4 NS LI 33 10 10 N 1 PH DO 50 AR N 0 MA R MG CY # CA PS 10 UL 05 E 91 LO 00 03 03 0 [address] Ac RA 78 -0 -0 [...] 0- 8- 00 MA 13 E ve CO 59 20 20 RT 5 DM ED [...] 08 DE 8 PH RE AR K OSCAR J CY #5 91 58 10 11 [...] Procedure DOS Code Location Performer Comment REMOVAL 17703 [facility] CHAN INTRAUTER 6 PHYSICIAN TOBY INE S GROUP DEVICE IUD INJECTION 63988 [place] ANES 6 MEDICAL MEKA BRACHIAL SERV PLEXUS FOUNDATIO CONT NFS N CATH ARTHROSCO 73817 [place] MIRNA SCO PY 6 MEDICAL SHOULDER SERV SURGICAL FOUNDATIO CAPSULORR N HAPHY ANES 40422 [place] FEDERSPIE ARTHRS 6 MEDICAL L HUMERAL SERVICES H/N STRNCLAV & SHOULDER NOS MRI ANY 94143 [place] [facility] J[facility] UPPER 6 MEDICAL Y JUS EXTREMITY SERV W/O FOUNDATIO CONTRAST N MATRL RADEX 19610 [place] TIFFANIE SHOULDER 6 MEDICAL FRA COMPLETE SERV MINIMUM 2 FOUNDATIO VIEWS N ARTHROSCO 38816 [place] MIR[place] SCO PY 6 MEDICAL SHOULDER SERV SURG FOUNDATIO DEBRIDEME N NT EXTENSIVE CLAVICULE 45133 [place] MIRNA SCO CTOMY 6 MEDICAL PARTIAL SERV FOUNDATIO N ANESTHESI 57429 [place] A 6 MEDICAL MEDICAL [place] [address] [place] GUIDANCE 6 MEDICAL NEEDLE SERV PLACEMENT FOUNDATIO IMG S&I N DECALCIFI 50755 [facility] PURDOM CATION 6 Y OF MAT PROCEDURE [place] [facility] L[facility] 301[address] [facility] SUR[facility] 6 Y OF MAT PATHOLOGY [facility] GROSS&SHAQUILLE ROSCOPIC EXAM INJECTION 58796 [place] CHLOE ANES 6 MEDICAL BRACHIAL SERV PLEXUS FOUNDATIO CONT NFS N CATH RADEX 29926 [place] MONTGOMER SHOULDER 6 MEDICAL Y JUS COMPLETE SERV MINIMUM 2 FOUNDATIO VIEWS N CRTCHS E0114 [facility] AD[facility] UNDARM 6 TECHNOLOG TECHNOLOG OTH THAN IES INC IES INC WOOD PAIR PAD TIP&HNDGR IP RADEX 19435 [facility] MANN ANKLE 6 [facility] HOSP COMPLETE INC INC MINIMUM 3 VIEWS ANKLE L4350 [facility] AD[facility]ANCED CONTROL 6 TECHNOLOG TECHNOLOG ORTHOSIS IES INC IES INC MISTIRUP STYL RIGID PREFAB ARTHROCEN 42346 [facility] TESIS 6 PHYSICIAN PHYSICIAN ASPIR&/IN S GROUP S GROUP J MAJOR JT/BURSA W/O US ARTHROCEN 99367 [facility] PETTEY TESIS 6 PHYSICIAN JAM ASPIR&/IN S GROUP J INTERM JT/BURS W/O US INJ J0702 [facility] PETTEY BETAMETHA 6 PHYSICIAN JAVI SONE S GROUP ACETATE & PHOSPHATE 3 MG RADIOLOGI 86175 [place] Y[place] ALL C EXAM 6 MEDICAL CHEST 2 IMAGING VIEWS ASS FRONTAL&L ATERAL INJ J0702 [facility] PETTEY BETAMETHA 6 PHYSICIAN JAVI REYE S GROUP ACETATE & PHOSPHATE 3 MG ARTHROCEN 41238 [facility] PETTEY TESIS 6 PHYSICIAN JAM ASPIR&/IN S GROUP J INTERM JT/BURS W/O US THERAPEUT 40701 [facility] MANN IC PX 1/> 6 [facility] HOSP AREAS INC INC EACH 15 MIN EXERCISES PHYSICAL 16859 [facility] MANN THERAPY 6 [facility] HOSP EVALUATIO INC INC [place] ANY 66958 [place] YAN ALL JT UPPER 6 MEDICAL EXTREMITY IMAGING W/O ASS CONTRAST MATRL RADEX 15450 [place] JANEE SHOULDER 5 MEDICAL DANIELLA COMPLETE IMAGING MINIMUM 2 ASS VIEWS THERAPEUT 40116 [facility] MANN IC 5 [facility] TIC/DX INJECTION SUBQ/IM URINE 87609 [facility] DUSTIN 5 PHYSICIAN TOBY TEST S GROUP VISUAL COLOR CMPRSN METHS IAADIADOO 69537 [facility] MUNSON 5 [facility] CCUS GROUP A SEDIMENTA 96662 [facility] MANN TION RATE 5 [facility] HOSP RBC INC INC NON-AUTOM ATED THERAPEUT 35235 HMNiraj AMIN IC 5 PHYSICIAN STONE PROPHYLAC S GROUP BILL HICKS TIC/DX INJECTION SUBQ/[place] [address] [facility] MANN THYROID 5 MEM HOSP MEM HOSP STIMULATI INC INC NG HORMONE TSH INJECTION J1040 [facility] AMIN 5 PHYSICIAN RENDON METHYLPRE S GROUP BILL HICKS DNISOLONE ACETATE 80 MG ANTINUCLE 72697 [facility] MANN AR 5 [facility] MEM [facility] [place] [address] [facility] MANN THYROXINE 5 MEM HOSP MEM HOSP TOTAL INC INC RHEUMATOI 92635 [facility] MANN D FACTOR 5 MEM HOSP MEM HOSP QUANTITAT INC INC DACIA RADEX 70496 [facility] MANN HAND 5 MEM HOS[facility] MEM HOSP MINIMUM 3 INC INC VIEWS RADEX 23903 [facility]EN[facility] MANN FOREARM 2 5 MEM HOSP MEM HOSP VIEWS INC INC RADEX 20779 [facility] SPINE 5 WILLIAM WILLIAM LUMBOSACR AL 2/3 VIEWS CYTP C/V 02890 [facility], PICKLESIM AUTO THIN 5 LLC ER JR BEAU LYR PREPJ SCR MNL RESCR PHYS CHIROPRAC 51327 JANNETH [facility] TIC 5 WILLIAM WILLIAM MANIPULAT DACIA TX SPINAL 1-2 REGIONS INTRAUTER J7300 [facility] CHAN INE 3 HEALTH TOBY COPPER CLINIC OF CONTRACEP [place] TIVE URINE 84187 [facility] CHAN 3 HEALTH TOBY TEST CLINIC OF VISUAL [place] COLOR CMPRSN METHS INSERTION 89920 WOMEN'S WOMEN'S HEALTH HEALTH INTRAUTER CLINIC OF CLINIC OF INE [place] DEVICE IUD CYTP C/V 92329 PATHOLOGY PICKLESIM AUTO THIN 3 & ER JR BEAU LYR CYTOLOGY PREPJ SCR LAB MNL RESCR PHYS VAGINAL 06496 [facility] CAHN DELIVERY 3 HEALTH TOBY ONLY CLINIC OF W/POSTPAR [place] GAYE CARE NEURAXIAL 91083 [facility] LABOR 3 ANESTH ANALG/ANE OF THE S PLND BLUE VAGINAL [place]PAIR OF 7569 [facility] MANN OTHER 3 MEM HOSP MEM HOSP CURRENT INC INC OBSTETRIC LACERATIO N 69684 [facility] MANN NONSTRESS 3 MEM HOSP MEM HOSP TEST INC INC URNLS DIP 10576 [facility] MANN 3 MEM HOSP MEM HOSP STICK/TAB INC INC LET REAGENT AUTO MICROSCOP Y US PREG 49197 [facility] UTERUS 3 CONGREGATION CONGREGATION REAL TIME HOSP HOSP F/U TRNSABDL PER FETUS US PREG 27250 [facility] UTERUS 3 HEALTH TOBY REAL TIME CLINIC OF F/U [place] TRNSABDL PER FETUS 24114 [facility] BIOPHYSIC 3 HEALTH TOBY AL CLINIC OF PROFILE [place] W/O NON-STRES S TESTING DOPPLER 24954 [facility] CHAN VELOCIMET 3 HEALTH TOBY RY CLINIC OF UMBILICAL [place] ARTERY CULTURE 90314 [facility] MANN BACTERIAL 3 MEM HOSP MEM HOSP INC INC QUANTTATI VE COLONY COUNT URINE URNLS DIP 82853 [facility] MANN 3 MEM HOSP MEM HOSP STICK/TAB INC INC LET REAGENT AUTO MICROSCOP Y 61587 [facility] CHAN NONSTRESS 3 HEALTH TOBY TEST CLINIC OF [place] CUL BACT 49929 COMBINED COMBINED XCPT 3 PHYSICIAN PHYSICIAN URINE S LA S LA BLOOD/STO OL AEROBIC ISOL 98395 [facility] CH[facility] BIOPHYSIC 3 HEALTH TOBY AL CLINIC OF PROFILE [place] W/O NON-STRES S TESTING 12252 [facility] MANN NONSTRESS 3 MEM HOSP MEM HOSP TEST INC INC US PREG 31329 [facility] MANN UTERUS 3 MEM HOSP MEM HOSP REAL TIME INC INC F/[place] [address] [facility] MANN MAGNESIUM 3 MEM HOSP MEM HOSP INC INC DOPPLER 45272 [facility] MANN VELOCIMET 3 MEM HOSP MEM HOSP RY INC INC UMBILICAL [facility] 82443 WOMEN'S CHAN DISCHARGE 3 HEALTH TOBY DAY CLINIC OF MANAGEMEN [place] T 30 MIN/< 66892 SIGR[facility] WELLER BIOPHYSIC 3 MEDICAL DANIELLA AL IMAGING PROFILE ASS NON-STRES S TESTING 39080 [facility] MANN BIOPHYSIC 3 MEM HOSP MEM HOSP AL INC INC PROFILE W/O NON-STRES S TESTING CREATININ 98436 [facility] MANN E OTHER 3 [facility] [place] [place] [address] [facility] MANN MAGNESIUM 3 MEM HOSP MEM HOSP INC INC 15720 [facility]EN[facility] MANN NONSTRESS 3 MEM HOSP MEM HOSP TEST INC INC PROTEIN 92505 [facility] MANN XCPT 3 MEM HOSP MEM HOSP REFRACTOM INC INC ETRY SERUM PLASMA/WH L [facility] G0378 [facility] MANN OBSERVATI 3 MEM HOSP MEM HOSP ON INC INC SERVICE PER HOUR SBSQ 14566 [facility] 3 HEALTH TOBY CARE/DAY CLINIC OF 15 [place] MINUTES THROMBOPL 49141 MACK[facility]IE MANN ASTIN 3 [facility] TIME INC INC PARTIAL PLASMA/[place] [address] MACKENZIE MANN BLOOD/URI 3 [facility] C ACID INC INC HOSPITAL [id number] MACKENZIE MANN OBSERVATI 3 [facility] ON INC INC SERVICE PER HOUR BLOOD 89049 [facility] MANN COUNT 3 [facility] COMPLETE INC INC AUTO&AUTO DIFRNTL WBC 72130 [facility] MANN NONSTRESS 3 [facility] TEST INC INC PROTHROMB 81185 MACKENZIE MANN IN TIME 3 [facility] INC INC FIBRINOGE 45589 MACK[facility]IE MANN N 3 [facility] ACTIVITY INC INC FIBRIN 91022 MACK[facility]IE MANN DGRADJ 3 [facility] PRODUCTS INC INC D-DIMER QUAL/[place] [address] MACKENZIE MANN MAGNESIUM 3 [facility] INC INC TRANSFERA 64064 M[facility]IE MANN SE 3 [facility] ALANINE INC INC AMINO ALT SGPT FTL 59691 [facility] MANN FIBRONECT 3 [facility] IN INC INC CERVICOVA G SECRETION S SEMI-FRANSISCA URNLS DIP 21216 [facility] MANN 3 [facility] STICK/TAB INC INC LET REAGENT AUTO MICROSCOP Y INITIAL 30771 [facility] [place] [facility]ALTH TOBY CARE/DAY CLINIC OF 50 [place] MINUTES TRANSFERA 87420 MACK[facility]ZIE MANN SE 3 [facility] ASPARTATE INC INC AMINO AST SGOT EVAL C/V 67363 MACK[facility]IE MANN AMNIOTIC 3 [facility] FLUID INC INC PROTEIN QUAL EA SPECIMEN BASIC 98566 MACK[facility]IE MANN METABOLIC 3 [facility] PANEL INC INC CALCIUM TOTAL GLUC BLD 21326 [facility] GLUC MNTR 3 [facility] DEV DIAGNOSTI CLEARED CCENTER FDA SPEC HOME USE US PREG 34961 [facility] UTERUS 3 [facility]AN[facility] W/DETAIL DIAGNOSTI CCENTER TANVIR 1ST GESTATION 03941 [facility] BIOPHYSIC 3 DANIE[facility] AL DIAGNOSTI PROFILE CCENTER W/O NON-STRES S TESTING 25462 [facility] BIOPHYSIC 3 HEALTH TOBY AL CLINIC OF PROFILE [place] W/O NON-STRES S TESTING DOPPLER 20384 [facility] VELOCIMET 3 HEALTH TOBY RY CLINIC [place]ICAL [place] PREG 05048 [facility] UTERUS 3 HEALTH TOBY REAL TIME CLINIC OF F/U [place] TRNSABDL PER FETUS CULTURE 49940 MACKENZIE MACKENZIE BACTERIAL 3 [facility] INC INC QUANTTATI VE COLONY COUNT URINE FTL 20868 MACKENZIEDAYNA MANN FIBRONECT 3 [facility] IN INC INC CERVICOVA G SECRETION S SEMI-FRANSISCA URNLS DIP 48773 MACKENZIE MACKENZIE 3 [facility] STICK/TAB INC INC LET REAGENT AUTO MICROSCOP Y THERAPEUT 85230 MACK[facility]IE MANN IC 3 [facility] PROPHYLAC INC INC TIC/DX INJECTION SUBQ/IM 60824 MACKENZIE MANN NONSTRESS 3 [facility] TEST INC INC CUL BACT 85705 COMBINED COMBINED XCPT 3 PHYSICIAN PHYSICIAN URINE S LA S LA BLOOD/STO OL AEROBIC ISOL I&D 15496 [facility]/PER 3 HEALTH TOBY INEAL CLINIC OF ABSCESS [place] 57079 DEVIN HERNANDEZ NONSTRESS 3 DAVID POWER JERRICA TEST FTL 07358 MACKENZIE MANN FIBRONECT 3 [facility] IN INC INC CERVICOVA G SECRETION S SEMI-FRANSISCA URNLS DIP 12427 [facility] STICK/TAB INC INC LET REAGENT AUTO MICROSCOP Y US PREG 94238 [facility] UTERUS 3 [facility] REAL TIME CLINIC OF F/U [place] TRNSABDL PER FETUS DOPPLER 11968 [facility] VELOCIMET 3 [facility] RY CLINIC OF UMBILICAL [place] ARTERY 08937 [facility] BIOPHYSIC 3 [facility] AL CLINIC OF PROFILE [place] W/O NON-STRES S TESTING 22583 [facility] HARPEL NONSTRESS 3 PHYSICIAN JERRICA TEST GROUP PCC GLUCOSE 14058 [facility] TOLERANCE 3 [facility] TEST GTT CLINIC OF 3 [place] SPECIMENS [place] PREG 18989 [facility] UTERUS 3 [facility] AFTER 1ST CLINIC OF TRIMEST [place] 1/ GESTATION CULTURE 80902 COMBINED COMBINED BACTERIAL 3 PHYSICIAN PHYSICIAN S LA S LA QUANTTATI VE COLONY COUNT URINE URNLS DIP 93556 [facility] MANN [facility] STICK/TAB INC INC LET REAGENT AUTO MICROSCOP Y CULTURE 61142 MACKENZIE MANN BACTERIAL 3 [facility] INC INC QUANTTATI VE COLONY COUNT URINE ALPHA-FET 30029 MACKENZIE MANN OPROTEIN 3 [facility] SERUM INC INC GONADOTRO 84395 MACKENZIE MANN PIN 3 [facility] CHORIONIC [place] [address] MACKENZIE MANN ESTRIOL 3 [facility] INC INC MEDICAL 04661 MACKENZIE MANN NUTRITION 3 [facility] CENTER ASSMT&IVN TJ INDIV EACH 15 [place] US PREG 60454 [facility] UTERUS 3 [facility] REAL TIME CLINIC OF W/IMAGE [place] DCMTN TRANSVAG CYTP C/V 99676 PATHOLOGY PICKLESIM AUTO THIN 3 & ER JR BEAU LYR CYTOLOGY PREPJ SCR LAB MNL RESCR PHYS IADNA 34021 PATHOLOGY PICKLESIM NEISSERIA 3 & ER JR BEAU CYTOLOGY GONORRHOE LAB AE AMPLIFIED PROBE TQ IADNA 25711 PATHOLOGY PICKLESIM CHLAMYDIA 3 & ER JR BEAU CYTOLOGY TRACHOMAT LAB IS AMPLIFIED PROBE TQ URINE 73207 MACKENZIE MANN 2 [facility] CENTER VISUAL COLOR CMPRSN METHS COLPOSCOP 94306 W[facility] Y VULVA 1 [facility]IN[facility] OF [place] CYTP C/V 94167 PATHOLOGY PATHOLOGY AUTO THIN 1 & & LYR CYTOLOGY CYTOLOGY PREPJ SCR LAB LAB MNL RESCR PHYS CYTP 52062 PATHOLOGY PATHOLOGY CERVICAL/ 1 & & VAGINAL CYTOLOGY CYTOLOGY REQ LAB LAB INTERP PHYSICIAN IADNA 14518 PATHOLOGY PATHOLOGY PAPILLOMA 1 & & VIRUS CYTOLOGY CYTOLOGY HUMAN LAB [place] [address] CHIPPS PICKLESIM SURG 1 FRIEDA & ER JR BEAU PATHOLOGY DUBILIER GROSS&SHAQUILLE ROSCOPIC EXAM COLPOSCOP 35478 [facility] Y CERVIX 1 [facility] BX CERVIX CLINIC OF & [place] ENDOCRV CURRETAGE FRAMES V2020 CATHY OWUSU PURCHASES 1 VISION ANG OPHTH 24108 CATHY OWUSU MEDICAL 1 VISION ANG XM&EVAL COMPRE NEW PT 1/> VST FITTING 30566 CATHY OWUSU SPECTACLE 1 VISION ANG S XCPT APHAKIA MONOFOCAL SPHERE V2100 CATHY OWUSU SINGLE 1 VISION ANG VISION PLANO +/- 4.00 PER LENS DESTRUCTI 09297 WOMEN'S WOMEN'S ON 1 HEALTH HEALTH LESIONS CLINIC OF CLINIC OF [place]VA [place] L[place] [address] SURG 1 FRIEDA & PATHOLOGY DUBIL[place] [address] SURG 1 FRIEDA & PATHOLOGY DUBILIER GROSS&SHAQUILLE ROSCOPIC EXAM COLPOSCOP 64413 [facility] Y CERVIX 1 [facility] BX CERVIX CLINIC OF & [place] ENDOCRV CURRETAGE CONTRACEP A4267 MACKENZIE MANN TIVE 1 [facility] SUPPLY [place] CONDOM MALE EACH IADNA 93948 MACKENZIE MANN NEISSERIA 1 [facility] GONORRHOE AE AMPLIFIED PROBE TQ AMINES 14069 MACKENZIE MANN VAGINAL 1 [facility] FLUID [place] QUALITATI VE PH BODY 41288 MACKENZIE MANN FLUID NOT [address] [facility] [facility] ELSEWHERE SPECIFIED CYTP 95146 PATHOLOGY PATHOLOGY CERVICAL/ 1 & & VAGINAL CYTOLOGY CYTOLOGY REQ LAB LAB INTERP PHYSICIAN WET Q0111 MACKENZIE MANN EVGENY 1 [facility] IN[facility] PREP CENTER CENTER VAGINAL CERV/SKIN SPECIMENS CYTP 32702 PATHOLOGY PATHOLOGY CERV/VAG 1 & & AUTO THIN CYTOLOGY CYTOLOGY LAYER LAB LAB PREP MNL SCREEN IADNA 89697 MACKENZIE MANN CHLAMYDIA 1 [facility] NAM[facility] TRACHOMAT IS AMPLIFIED PROBE TQ ALL Q0112 MACKENZIE MANN POTASSIUM [address] [facility] HYDROXIDE PREPARATI ONS SMR PRIM 22170 MACKENZIE MANN SRC WET 1 [facility] [place] [address] MACKENZIE MANN STREPTOCO 0 [facility] CCUS INC INC GROUP A INSERTION 82554 [facility] 0 [facility] IMPLANTAB CLINIC OF LE [place] CONTRACEP TIVE CAPSULES ETONOGEST J7307 [facility] REL 0 [facility] CNTRACPT CLINIC OF IMPL SYS [place] INCL IMPL & SPL URINE 57884 [facility] 0 [facility] TEST CLINIC OF VISUAL [place] COLOR CMPRSN METHS IIV3 89478 MACKENZIE MANN VACCINE 0 [facility] SPLIT [facility] VIRUS 0.5 ML DOSAGE IM USE IAADIADOO 23523 SELLERS SELLERS 0 DON [place] [address] PATHOLOGY PATHOLOGY SURG 0 & & PATHOLOGY CYTOLOGY CYTOLOGY LAB LAB GROSS&SHAQUILLE ROSCOPIC EXAM IADNA 84241 PATHOLOGY PATHOLOGY NEISSERIA 0 & & CYTOLOGY CYTOLOGY GONORRHOE LAB LAB AE AMPLIFIED PROBE TQ CYTP 30556 PATHOLOGY PATHOLOGY CERVICAL/ 0 & & VAGINAL CYTOLOGY CYTOLOGY REQ LAB LAB INTERP PHYSICIAN CYTP C/V 35913 PATHOLOGY PATHOLOGY AUTO THIN 0 & & LYR CYTOLOGY CYTOLOGY PREPJ SCR LAB LAB MNL RESCR PHYS IADNA 12507 PATHOLOGY PATHOLOGY CHLAMYDIA 0 & & CYTOLOGY CYTOLOGY TRACHOMAT LAB [place] [address] WOMENAlissonS DUSTIN, TRANSVAGI 0 [facility] [place] [address] SIGRID JANEE, ABDOMEN 0 MEDICAL JESÚS W/O & IMAGING W/CONTRAS ASSOCIATE T S MATERIAL CT PELVIS 50676 SIGRID JANEE, W/O & 0 MEDICAL JESÚS W/CONTRAS IMAGING T ASSOCIATE MATERIAL S URNLS DIP 38631 M[facility]ZIE MANN 0 [facility] STICK/TAB INC INC LET REAGENT AUTO MICROSCOP Y BLOOD 90754 MACKENZIE MANN COUNT 0 [facility] COMPLETE INC INC AUTO&AUTO DIFRNTL WBC COMPREHEN 40254 MACKENZIE MANN SIVE 0 [facility] [address] MACKENZIE MANN INFUSION 0 [facility] THERAPY INC INC PROPHYLAX IS/DX EA HOUR 3D 81273 MACKENZIE MANN RENDERING 0 [facility] INC INC W/INTERP& POSTPROC DIFF WORK STATION URINE 26822 MACKENZIE MANN 0 [facility] TEST INC [place] [address] MACKENZIE MANN INFUSION 0 [facility] THERAPY/P INC INC ROPHYLAXI S /DX 1ST TO 1 HR RADIOLOGI 67265 SIGRID JANEE C EXAM 0 MEDICAL JESÚS CHEST 2 IMAGING VIEWS ASSOCIATE FRONTAL&[place] [address] NUBIA DAUGHERTY, XTRNL 9 EMERGENCY ANNIE R AUDITORY SERVICES CANAL W/O ANES ASSOCIATE S LEVONORGE J7302 JORDANAlissonS DUSTIN, STREL-RLS 9 [facility] E CLINIC OF INTRAUTER N ABE CNTRACPT PLLC 52 MG INSERTION 19614 [facility], 9 [facility] INTRAUTER CLINIC OF INE DEVICE CYNTHIROBERT IUD [facility] URINE 77048 [facility], 9 [facility] TEST CLINIC OF VISUAL COLOR CYNTHIROBERT CMPRSN [facility] METHS CYTP 52725 PATHOLOGY PATHOLOGY CERVICAL/ 9 & & VAGINAL CYTOLOGY CYTOLOGY REQ LAB LAB INTERP PHYSICIAN VAGINAL 04866 [facility], DELIVERY 9 [facility] ONLY CLINIC OF W/POSTPAR GAYE CARE [place] [facility] NEURAXIAL 72878 COMMUNITY CASTRO, LABOR 9 ANESTH ISAMAR F ANALG/ANE OF THE S PLND BLUEGRASS VAGINAL DELIVERY REPAIR OF 7569 MACKENZIE MANN OTHER 9 [facility] CURRENT INC INC OBSTETRIC LACERATIO N INITIAL 78976 [facility], OBSERVATI 9 [facility] ON CLINIC OF CARE/DAY 50 [place] MINUTES [facility] DOPPLER 84011 WOMEN'S DUSTIN, VELOCIMET 9 [facility] RY CLINIC OF UMBILICAL ARTERY [place] [facility] US PREG 62223 [facility], UTERUS 9 [facility] REAL TIME CLINIC OF F/U TRNSABDL [place] PER FETUS [facility] 31723 WOMEN'S DUSTIN, BIOPHYSIC 9 [facility] AL CLINIC OF PROFILE W/O [place] NON-STRES [facility] S TESTING FRAMES V2020 CATHY ROSE, PURCHASES 9 VISION JOSE ELIAS A RPR&REFIT 68134 CATHY ROSE G 9 VISION JOSE ELIAS A SPECTACLE S EXCEPT APHAKIA SPHERE V2100 CATHY ROSE, SINGLE 9 VISION JOSE ELIAS A VISION PLANO +/- 4.00 PER LENS OPHTH 95866 NUBIA DELACRUZ, MEDICAL 9 HARJEET COSBY XM&EVAL W W COMPRE NEW PT 1/> VST DETERMINA 97107 NUBIA DELACRUZ, TIDAYNA 9 HARJEET COSBY REFRACTIV W W E STATE CUL BACT 48515 COMBINED COMBINED XCPT 9 PHYSICIAN PHYSICIAN URINE S LAB S LAB BLOOD/STO OL AEROBIC ISOL IAADIADOO 09976 SELLERSVERITO Doran, 9 DON R DON R STREPTOCO CCUS GROUP A 96578 [facility], NONSTRESS 9 [facility] J TEST CLINIC OF [place] [facility] GLUCOSE 27414 [facility], TOLERANCE 9 [facility] J TEST GTT CLINIC OF 3 SPECIMENS [facility] COLLECTIO 33189 [facility], N 9 [facility] J CAPILLARY CLINIC OF BLOOD SPECIMEN [facility] GLUCOSE 34554 [facility], POST 9 [facility] J GLUCOSE CLINIC OF DOSE [facility] US PREG 50579 [facility], UTERUS 8 [facility] J REAL TIME CLINIC OF F/U TRNSABDL ABE PER FETUS [facility] US PREG 88573 [facility], UTERUS 8 [facility] J AFTER CLINIC OF TRIMEST [place] GESTATION [facility] REPAIR OB 75.69 Volodymyr Suarez NEC Encounters Encounter Start End Date Code Location Performer Type Date OFFICE 88378 [facility] OUTPATIEN 6 6 MEDICAL T VISIT SERV 15 FOUNDATIO MINUTES N HOSPITAL UNIVERSIT - 6 6 Y [facility] T OFFICE 11163 BRENT SAUNDERS CONSULTAT 6 6 MEDICAL ION SERV NEW/ESTAB FOUNDATIO PATIENT N 60 MIN OFFICE 09994 [facility] 6 6 PHYSICIAN JAVI T VISIT S GROUP 10 MINUTES EMERGENCY 12607 MACKENZIE 6 6 [facility] DEPARTMEN INC T VISIT LOW/MODER SEVERITY EMERGENCY 02622 HANG STEINER 6 6 PHYSICIAN JOSE FRENCH S, [facility] T VISIT MODERATE SEVERITY HOSPITAL MACKENZIE - 6 6 [facility] OUTPATIEN INC T OFFICE 10572 [facility] OUTPATIEN 6 6 PHYSICIAN JAM T VISIT S GROUP 10 MINUTES OFFICE 13312 [facility] OUTPATIEN 6 6 PHYSICIAN JAM T VISIT S GROUP 10 MINUTES EMERGENCY 37729 HANG DECKER 6 6 PHYSICIAN Anabel FRENCH S, [facility] T VISIT HIGH/URGE NT SEVERITY OFFICE 92221 [facility] OUTPATIEN 6 6 PHYSICIAN JAM T VISIT S GROUP 15 MINUTES OFFICE 91500 [facility] CHAN OUTPATIEN 6 6 PHYSICIAN TOBY T VISIT S GROUP 15 MINUTES HOSPITAL MACKENZIE - 6 6 [facility] OUTPATIEN INC T OFFICE 82431 [facility] OUTPATIEN 6 6 PHYSICIAN JAM T VISIT S GROUP 15 MINUTES HOSPITAL MACKENZIE - 6 6 [facility] OUTPATIEN INC T HOSPITAL MACKENZIE - 5 5 [facility] OUTPATIEN INC T OFFICE 07292 [facility] OUTPATIEN 5 5 PHYSICIAN JAVI T NEW 30 S GROUP MINUTES OFFICE 86041 MACKENZIE MUNSON OUTPATIEN 5 5 [facility] 15 MINUTES OFFICE 90146 [facility] CHAN OUTPATIEN 5 5 PHYSICIAN TOBY T VISIT S GROUP 15 MINUTES OFFICE 31866 MACKENZIE MUNSON OUTPATIEN 5 5 [facility] 10 MINUTES HOSPITAL MACKENZIE - 5 5 [facility] OUTPATIEN INC T OFFICE 41065 [facility] AMIN OUTPATIEN 5 5 PHYSICIAN JUSTICE T NEW 30 S GROUP BILL HICKS MINUTES OFFICE 10154 MACKENZIE TODD OUTPATIEN 5 5 [facility] 15 [facility] H[facility] MACKENZIE - 5 5 [facility] OUTPATIEN INC T PERIODIC 80074 [facility] PREVENTIV 5 5 PHYSICIAN E MED EST S GROUP PATIENT 18-39 YRS EMERGENCY 56579 HANG DECKER 5 5 PHYSICIAN Anabel Doran [facility] T VISIT MODERATE SEVERITY Inpatient ROBB Chan MD (IN) 3 04:42 3 12:45 [facility] MACKENZIE - 3 3 [facility] INPATIENT INC OFFICE 21706 [facility] OUTPATIEN 3 3 [facility] T VISIT CLINIC OF 15 [place] MINUTES OFFICE 11806 DEVIN HERNANDEZ OUTPATIEN 3 3 [facility] T VISIT 15 MINUTES HOSPITAL MACKENZIE - 3 3 [facility] OUTPATIEN [facility] T OFFICE 47718 DEVIN HERNANDEZ OUTPATIEN 3 3 [facility] T VISIT 15 MINUTES HOSPITAL [facility] - 3 3 [facility]PITAL MACKENZIE - 3 3 [facility] OUTPATIEN [facility] T OFFICE 92462 [facility] OUTPATIEN 3 3 [facility] T VISIT CLINIC OF 15 [place] MINUTES OFFICE 01217 [facility] OUTPATIEN 3 3 [facility] T VISIT CLINIC OF 15 [place] MINUTES Inpatient ROBB Chan MD (IN) 3 12:52 3 12:18 [facility] MACKENZIE - 3 3 [facility] OUTPATIEN [facility] HOSPITAL CENTRAL - 3 3 [facility] OUTPATI[facility] HOSP T OFFICE 90851 TOYA CONSULTAT 3 3 DANIELLA ION DIAGNOSTI NEW/ESTAB CCENTER PATIENT 15 MIN HOSPITAL MACKENZIE - 3 3 [facility] OUTPATIEN [facility] HOSPITAL MACKENZIE - 3 3 [facility] OUTPATIEN [facility] T OFFICE 16131 DEVIN HERNANDEZ OUTPATIEN 3 3 [facility] [place] T VISIT 15 MINUTES OFFICE 78023 [facility] OUTPATIEN 3 3 [facility] T VISIT CLINIC OF 15 [place] MINUTES OFFICE 89748 [facility] OUTPATIEN 3 3 [facility] T VISIT CLINIC OF 15 [place] MINUTES OFFICE 59137 [facility] OUTPATIEN 3 3 [facility] T VISIT 5 CLINIC OF MINUTES [place] OFFICE 76747 [facility] OUTPATIEN 3 3 [facility] T VISIT CLINIC OF 15 [place] MINUTES OFFICE 00791 [facility] OUTPATIEN 3 3 [facility] T VISIT CLINIC OF 15 [place] MINUTES Emergency CIARA Adhikari MD (ER) 3 20:50 3 22:20 [facility] EMERGENCY 82366 NUBIA ADHIKARI 3 3 EMERGENCY [facility] DEPARTMEN SERVICES T VISIT HIGH/URGE NT SEVERITY HOSPITAL M[facility]ENZIE - 3 3 [facility] OUTPATIEN INC T EMERGENCY 12300 MACKENZIE 3 3 [facility] DEPARTMEN INC T VISIT LOW/MODER SEVERITY HOSPITAL M[facility]ENZIE - 3 3 [facility] OUTPATIEN INC T OFFICE 40129 [facility] OUTPATIEN 3 3 [facility] T VISIT CLINIC OF 15 [place] MINUTES OFFICE 63235 [facility] OUTPATIEN 3 3 [facility] T VISIT CLINIC OF 15 [place] MINUTES OFFICE 38813 [facility] OUTPATIEN 3 3 [facility] T VISIT CLINIC OF 15 [place] MINUTES HOSPITAL MACKENZIE - 2 2 [facility] OUTPATIEN INC T EMERGENCY 19644 MACKENZIE 2 2 [facility] DEPARTMEN INC T VISIT LOW/MODER SEVERITY EMERGENCY 46902 NUBIA ADHIKARI 2 2 EMERGENCY [facility] DEPARTMEN SERVICES T VISIT HIGH/URGE NT SEVERITY OFFICE 56467 MACKENZIE MANN OUTPATIEN 2 2 [facility] T VISIT CENTER CENTER 15 MINUTES INITIAL 44073 MACKENZIE MANN PREVENTIV 1 1 [facility] MEDICINE NEW PT AGE 18-39YRS [facility] MACKENZIE - 0 0 [facility] OUTPATIEN INC T EMERGENCY 86810 NUBIA ALFORD 0 0 EMER[facility]ENC[facility] DEPARTMEN SERVICES T VISIT MODERATE SEVERITY EMERGENCY 97781 MACKENZIE 0 0 [facility] DEPARTMEN INC T VISIT LOW/MODER SEVERITY OFFICE 37552 VERITO SELLERS OUTPATIEN 0 0 DON DON T VISIT 15 MINUTES OFFICE 73852 VERITO SELLERS OUTPATIEN 0 0 DON DON T VISIT 15 MINUTES EMERGENCY 49884 NUBIA ADHIKARI, 0 0 EMERGENCY [facility] SERVICES T VISIT HIGH/URGE ASSOCIATE NT S SEVERITY HOSPITAL MACKENZIE - 0 0 [facility] OUTPATIEN INC T EMERGENCY 67833 MACKENZIE 0 0 [facility] DEPARTMEN INC T VISIT LOW/MODER SEVERITY PERIODIC 58522 [facility], PREVENTIV 0 0 [facility] J E MED EST CLINIC OF PATIENT 18-39 YRS [facility] OFFICE 57416 VERITO SELLERS, OUTPATIEN 0 0 DON R DON R T VISIT 15 MINUTES OFFICE 54728 [facility], OUTPATIEN 0 0 [facility] J T VISIT CLINIC OF 15 MINUTES [facility] MACKENZIE - 0 0 [facility] OUTPATIEN INC T EMERGENCY 94614 MACKENZIE 0 0 [facility] DEPARTMEN INC T VISIT MODERATE SEVERITY EMERGENCY 77867 NUBIA KALYN, DEPT 0 0 EMERGENCY NATAN S VISIT SERVICES HIGH SEVERITY& ASSOCIATE THREAT S [facility] EMERGENCY 55501 NUBIA LOPEZRODERICK, 9 9 EMERGENCY RUTH DEPARTMEN SERVICES O T VISIT HIGH/URGE ASSOCIATE NT S SEVERITY HOSPITAL MACKENZIE - 9 9 [facility] OUTPATIEN INC T EMERGENCY 31494 NUBIA DAUGHERTY, 9 9 EMERGENCY ANNIE R DEPARTMEN SERVICES T VISIT MODERATE ASSOCIATE SEVERITY S EMERGENCY 44917 MACKENZIE 9 9 [facility] DEPARTMEN INC T VISIT LOW/MODER SEVERITY OFFICE 20081 [facility], OUTPATIEN 9 9 [facility] J T VISIT CLINIC OF 15 MINUTES [facility] OFFICE 50975 [facility], OUTPATIEN 9 9 [facility]ALTH [facility] J T VISIT CLINIC OF 25 MINUTES [facility] OFFICE 36126 [facility], OUTPATIEN 9 9 HEALTH V[facility]ODYMYR J T VISIT CLINIC OF 15 MINUTES [facility] MACKENZIE - 9 9 [facility] INPATIENT INC OFFICE 72697 [facility], OUTPATIEN 9 9 HEALTH V[facility]ODYMYR J T VISIT CLINIC OF 15 MINUTES [facility] OFFICE 97957 [facility], OUTPATIEN 9 9 HEALTH V[facility]MYR J T VISIT CLINIC OF 15 MINUTES [facility] OFFICE 56180 [facility], OUTPATIEN 9 9 [facility]ALTH [facility] J T VISIT CLINIC OF 15 MINUTES [facility] OFFICE 53086 [facility], OUTPATIEN 9 9 [facility]ALTH [facility] J T VISIT CLINIC OF 15 MINUTES [facility] OFFICE 50928 [facility], OUTPATIEN 9 9 [facility]ALTH [facility] J T VISIT CLINIC OF 15 MINUTES [facility] OFFICE 98734 EVRITO SELLERS OUTPATIEN 9 9 DON R DON R T VISIT 15 MINUTES OFFICE 99388 [facility], OUTPATIEN 9 9 [facility] J T VISIT CLINIC OF 15 MINUTES [facility] OFFICE 65626 [facility], OUTPATIEN 9 9 [facility]ALTH [facility] J T VISIT CLINIC OF 15 MINUTES [facility] OFFICE 19269 [facility], OUTPATIEN 9 9 [facility]ALTH [facility] J T VISIT CLINIC OF 15 MINUTES [facility] OFFICE 43968 [facility]EN[facility] CH[facility], OUTPATIEN 9 9 HEALTH V[facility] J T VISIT 5 CLINIC OF MINUTES [facility] OFFICE 65896 [facility]OMEN[facility] CH[facility], OUTPATIEN 8 8 [facility]ALTH [facility] J T VISIT CLINIC OF 15 MINUTES [facility] OFFICE 95300 VERITO SELLERS OUTPATIEN 8 8 DON R DON R T VISIT 15 MINUTES OFFICE 27816 [facility], OUTPATIEN 8 8 [facility]ALTH [facility] J T VISIT CLINIC OF 15 MINUTES [facility] OFFICE 55085 VERITO SELLERS OUTPATIEN 8 8 DON R DON R T VISIT 15 MINUTES
--- OUTSIDE RECORDS SUMMARY | 2016-09-16 13:44 | External Medical Summary Rpt ---
Author Author , Organization [employer] Address Unknown Phone Unavailable Care Team Providers Care Cytology Technologist Name Role Phone [employer] Unavailable Unavailable INC, [employer] Unavailable Unavailable INC, [employer] TIFFANIE FRA, TIFFANIE Unavailable Unavailable FRA GUERRERO TER, GUERRERO TER Unavailable Unavailable HEREDIA ALL, HEREDIA ALL Unavailable Unavailable [facility], Unavailable Unavailable [facility] CHIPPS FRIEDA & Unavailable Unavailable DUBILIER, CHIPPS FRIEDA & DUBILIER JOSH TER, JOSH TER Unavailable Unavailable CHAN TOBY, CHAN Unavailable Unavailable TOBY VOLODYMYR CHAN, Unavailable Unavailable VOLODYMYR CHAN J [facility] Unavailable Unavailable [place], [facility] Unavailable Unavailable [facility], [facility] Unavailable Unavailable LAB, [facility] JANEE DANIELLA, Unavailable Unavailable JANEE DANIELLA JESÚS WELLER, Unavailable Unavailable JANEE, JESÚS C[facility], Unavailable Unavailable [facility] ELOISA RENDON PA-C Unavailable Unavailable KURTELOISA PA-C KURT FEDERSPIEL, Unavailable Unavailable FEDERSPIEL LAGUNAS WILLIAM, Unavailable Unavailable LAGUNAS WILLIAM LAGUNAS WILLIAM, Unavailable Unavailable LAGUNAS WILLIAM FRYMAN EUG, FRYMAN Unavailable Unavailable EUG KALYN SHAQUILLE, KALYN Unavailable Unavailable SHAQUILLE NATAN MCCAIN S, Unavailable Unavailable NATAN MCCAIN MD, Unavailable Unavailable ANNIE KIDD MD, Unavailable Unavailable ANNIE DAUGHERTY HARPEL Unavailable Unavailable [facility] Unavailable Unavailable [facility] Unavailable Unavailable [facility] Unavailable Unavailable INC, [facility] Unavailable Unavailable [facility], [facility] JOSE ELIAS ROSE, Unavailable Unavailable JOSE ELIAS ROSE [facility], Unavailable Unavailable [facility] PRASHANHT ALFORD CHA Unavailable Unavailable [facility] Unavailable Unavailable [facility], [facility] Unavailable [facility], [facility], Unavailable Unavailable [facility] CHLOE, CHLOE Unavailable Unavailable CHLOE MEKA, CHLOE Unavailable Unavailable MEKA MIRNA SCO, MIRNA SCO Unavailable Unavailable [facility] Unavailable Unavailable SERVICES, [facility] HARJEET DELACRUZ, Unavailable Unavailable HARJEET DELACRUZ TOYA DANIELLA, Unavailable Unavailable TOYA DANIELLA MOLINA JUS, Unavailable Unavailable MOLINA JUS CASTRO SHIRA, CASTRO SHIRA Unavailable Unavailable MATTHEW ISAMAR F, Unavailable Unavailable MATTHEW ISAMAR F [facility], [facility]available [facility]available [facility], [facility] Unavailable Unavailable [...] DON R, Unavailable Unavailable SELLERS, DON R [facility], Unavailable Unavailable [facility] Unavailable Unavailable [facility] Unavailable Unavailable #[id number], [facility] # Unavailable Unavailable [id number], [facility] # [id number] [facility] Unavailable Unavailable OF [place], [facility] [place] Purpose Continuity of Care Document - 01-27-2008 through 2016 Problems Code Diagnosis DOS Provider Status [id number] ENCOUNTER 02-07-2016 [facility] REMOVAL PHYSICIANS INTRAUTERIN GROUP E CONTRACEPT DEVICE [id number] OTHER ACUTE 12-27-2015 [facility]ICAL SERV POSTPROCEDU [facility] RAL PAIN [id number] PAIN IN 12-27-2015 [facility] RIGHT SERV SHOULDER FOUNDATION [id number] SUPERIOR 12-27-2015 [facility] GLENOID SERVICES LABRUM LESION RT SHOULDER INIT [id number] OTHER 12-21-2015 [facility] INSTABILITY SERV RIGHT [facility] SHOULDER M7581 OTHER 12-21-2015 [facility] SHOULDER SERV LESIONS FOUNDATION RIGHT SHOULDER [id number] OTHER 12-13-2015 [facility] SH[facility]ER JOINT INITIAL ENCOUNTER [id number] STRAIN OTH 12-13-2015 ID MEDICAL M&T SHLDR SERV UP ARM LEVL FOUNDATION RT ARM INIT ENC [id number] UNS INJURY 12-13-2015 [facility] UPPER ARM UNS ARM INIT ENC Z049 ENCOUNTER 09-28-2015 ID MEDICAL EXAMINATION SERV &OBSERVATIO [facility] N FOR UNS REASON [id number] PRIMARY 09-13-2015 ID [facility]ICAL OSTEOARTHRI SERVICES TIS RIGHT SHOULDER [id number] PRIMARY 09-13-2015 [place] OSTEOARTHRI [facility] TIS LEFT HOSPI SHOULDER [id number] LOOSE BODY 09-13-2015 ID MEDICAL IN RIGHT SERVICES SHOULDER [id number] INCMPL RC 09-13-2015 ID MED[facility] TEAR/RUPT SERVICES RT SHOULDER NOT SPEC TRAUM [id number] UNS INJURY 08-15-2015 ID MEDICAL RT SHOULDER SERV UPPER ARM FOUNDATION INITIAL ENCNTR [id number] SPRAIN 08-14-2015 [facility] OTHER PHYSICIANS LIGAMENT LT GROUP ANKLE INITIAL ENCOUNTER [id number] PAIN IN 08-13-2015 [place] [facility] [id number] SPR[place] UNS 08-13-2015 [facility] [employer] LEFT ANKLE S INC INITIAL ENCOUNTER [id number] SPRAIN 08-13-2015 [facility] TIBIOFIBULA [facility], R LIGAMENT PLLC LT ANKLE INIT ENC Z720 TOBACCO USE 08-13-2015 [facility] M1990 UNSPECIFIED 06-21-2015 [facility] PHYSICIANS OSTEOARTHRI GROUP TIS UNSPECIFIED SITE M7541 IMPINGEMENT 06-21-2015 [facility] SYNDROME PHYSICIANS OF RIGHT GROUP SHOULDER M5432 SCIATICA 06-14-2015 [facility] SIDE [facility] M545 LOW BACK 06-14-2015 [facility] PAIN [facility] R071 CHEST PAIN 06-14-2015 [place] [facility] BREATHING [facility] R0789 OTHER CHEST 06-14-2015 [place] [facility] N762 ACUTE 04-20-2015 [facility] VULVITIS PHYSICIANS GROUP [id number] OTHER 04-14-2015 [facility]OS[facility] JOINT INC DISORDERS RIGHT SHOULDER N926 IRREGULAR 02-16-2015 [facility] MENSTRUATIO PHYSICIANS N GROUP UNSPECIFIED R25579 ENCOUNTER 02-16-2015 [facility] ROUTINE PHYSICIANS CHECKING IU GROUP CONTRACEPT DEVICE J029 ACUTE 02-13-2015 [facility] UNSPECIFIED J309 ALLERGIC 01-18-2015 [facility] RHINITIS PHYSICIANS UNSPECIFIED GROUP M2550 PAIN IN 01-18-2015 [facility] UNSPECIFIED PHYSICIANS JOINT GROUP Z8261 FAMILY 01-18-2015 [facility] HISTORY OF PHYSICIANS ARTHRITIS GROUP Z8269 FAM HX OTH 01-18-2015 [facility] DZ PHYSICIANS MUSCULOSKEL GROUP ETAL SYS&CONNECT IV TISS M129 ARTHROPATHY 01-16-2015 [facility] [id number] STIFFNESS 01-16-2015 [facility] OF LEFT [facility] HAND NOT INC ELSEWHERE CLASSIFIED Q44008 PAIN IN 01-16-2015 [place] LEFT MEDICAL FOREARM IMAGING ASS Q14607 PAIN IN 01-16-2015 [place] [facility] V7231 ROUTINE 11-17-2014 [facility] AL EXAMINATION 27841 CONTUSION 09-25-2014 [facility] KNEE PHYSICIANS, [facility] 7242 LUMBAGO 06-28-2014 LAGUNAS WILLIAM 7393 NONALLOPATH 06-28-2014 LAGU[facility]S IC LESION WILLIAM OF LUMBAR REGION NEC V2511 ENC FOR 12-29-2012 [facility] INSERTION HEALTH INTRAUTERIN CLINIC OF E [place] CONTRACEPT DEVICE V242 ROUTINE 12-25-2012 PATHOLOGY & CYTOLOGY FOLLOW-UP LAB 650 NORMAL 11-04-2012 [facility] DELIVERY [facility] [place] 38253 POOR 11-04-2012 [facility] GROWTH HEALTH AFFECT CLINIC OF MANAGEMENT [place] MOTH DELIV 24340 EXCESS 11-04-2012 [facility] GROWTH INC AFFECT MANAGEMENT MOTH DELIV 75331 POLYHYDRAMN 11-04-2012 [facility]OMEN'S IOS, WITH HEALTH DELIVERY CLINIC OF [place] 29079 OTH&UNS CRD 11-04-2012 [facility] ENTANGL [facility] W/O COMPRS INC COMP L&D DELIV 68864 FIRST-DEGRE 11-04-2012 [facility] E PERINEAL [facility] LACERATION INC WITH DELIVERY V270 OUTCOME OF 11-04-2012 [facility]EN'[facility] DELIVERY HEALTH SINGLE CLINIC OF LIVEBORN [place] V221 SUPERVISION 11-02-2012 WOMEN'S OF OTHER HEALTH NORMAL CLINIC OF [place] 83852 THREATENED 10-28-2012 [facility] PREMATURE [facility] LABOR INC ANTEPARTUM 26746 OTHER 10-28-2012 DEVIN HERNANDEZ MD LABOR, ANTEPARTUM 13045 UTERINE 10-23-2012 [facility] DATE [facility] ANTPRTM COND/COMPL 99167 EXCESS 10-23-2012 DIAGNOSTICC GROWTH ENTER AFFECT MGMT MOTH ANTPRTM 65975 POLYHYDRAMN 10-23-2012 IOS DIAGNOSTICC ANTEPARTUM ENTER COMPLICATIO N V2389 SUPERVISION 10-23-2012 OF OTHER DIAGNOSTICC HIGH-RISK ENTER V222 10-05-2012 [facility] INCIDENTAL IMAGING ASS 83150 UNSPECIFIED 10-03-2012 [facility] HYPERTENSIO INC N ANTEPARTUM 93005 OTH 09-25-2012 [facility]NAL [facility] CARDIOVASCU HOS[facility] LAR DISEASES ANTEPARTUM 87684 DECR 09-14-2012 [facility] MOVMNTS [facility] MGMT MOTH INC ANTPRTM COND/COMP 6164 OTHER 09-07-2012 [facility] ABSCESS OF HEALTH VULVA CLINIC OF [place] 85720 OTHER 09-07-2012 [facility]BINED POSTOPERATI PHYSICIANS VE LA INFECTION NEC V283 ENCOUNTER 07-02-2012 [facility]EN'S ROUTINE HEALTH SCREEN CLINIC OF KARLO [place] N ULTRASONIC 5990 URINARY 06-24-2012 [facility]OMEN'[facility] TRACT HEALTH INFECTION CLINIC OF SITE NOT [place] SPECIFIED 93595 DIAB W/O 06-15-2012 [facility] COMP TYPE [facility] II/UNS NOT INC STATED UNCNTRL 7840 HEADACHE 06-15-2012 [facility] 12649 OTH CURRENT 05-12-2012 [facility] MATERNAL HEALTH CCE-COMPL CENTER PG CB/PP-UNS EOC V653 DIETARY 05-12-2012 [facility] SURVEILLANC [facility] E AND CENTER COUNSELING 44970 OTHER 04-09-2012 [facility] SPECIFED HEALTH COMPLICATIO CLINIC OF N [place] ANTEPARTUM V745 SCREENING 04-01-2012 PATHOLOGY & EXAMINATION CYTOLOGY FOR LAB VENEREAL DISEASE 6259 UNSPEC 03-17-2012 [facility] SERVICES W/FEMALE GENITAL ORGANS V7242 03-11-2012 [facility] EXAMINATION HEALTH OR TEST CENTER POSITIVE RESULT 55570 CONDYLOMA 12-19-2010 [facility] ACUMINATUM [facility] [place] 0794 HUMAN 11-22-2010 [facility] PAPILLOMA FRIEDA & VIRUS IN DUBILIER CCE & UNS SITE 6160 CERVICITIS 11-22-2010 [facility] AND FRIEDA & ENDOCERVICI DUBILIER TIS 27489 MILD 11-22-2010 [facility] DYSPLASIA FRIEDA & OF CERVIX DUBILIER 85305 PAP SMER 11-22-2010 PATHOLOGY & CERV CYTOLOGY W/ATYPICAL LAB SQUAMOUS CELLS UNDET 11476 PAP SMER 11-22-2010 [facility]OMEN'S CERV W/LW HEALTH GRADE CLINIC OF SQUAMOUS [place] INTRAEPITH LES 3671 MYOPIA 10-26-2010 [facility] 2662 OTHER 05-01-2010 [facility] S V1589 OTH SPEC 05-01-2010 PATHOLOGY & PERS HX CYTOLOGY PRESENTING LAB HAZARDS HEALTH OTH V2549 SURVEILLANC 05-01-2010 [facility] E OTH PREV HEALTH PRSC CENTER CONTRACEPT METHOD 462 ACUTE 02-11-2010 [facility] 98447 NAUSEA 02-11-2010 [facility] EMERGENCY SERVICES V255 INSERTION 01-30-2010 WOMEN'S OF HEALTH IMPLANTABLE CLINIC OF SUBDERMAL [place] CONTRACEPTI VE V0481 NEED 01-26-2010 [facility] PROPHYLACTI [facility] C COAL CENTER VACCINATION &INOCULATIO N FLU 8472 LUMBAR 01-01-2010 [facility] SPRAIN AND DON STRAIN 463 ACUTE 11-21-2009 [facility] TONSILLITIS DON 61895 ABDOMINAL 05-12-2009 WOMEN'S PAIN RIGHT HEALTH LOWER CLINIC OF [place]ADRANT [place] [facility] 50751 ABDOMINAL 05-05-2009 WOMEN'S PAIN, LEFT HEALTH LOWER CLINIC OF [place] [facility] 17913 CHEST PAIN 04-03-2009 [place] [facility] 55636 ABDOMINAL 04-03-2009 [facility] PA[facility] RIGHT MEDICAL UPPER IMAGING [facility] 50089 ABDOMINAL 04-03-2009 [facility] OTHER EMERGENCY SPECIFIED SERVICES SITE ASSOCIATES 9249 CONTUSION 04-03-2009 [facility] OF EMERGENCY UNSPECIFIED SERVICES SITE ASSOCIATES 66513 OTHER 09-06-2008 [facility] DISEASES OF EMERGENCY NASAL SERVICES CAVITY AND ASSOCIATES SINUSES 7869 OTH 09-06-2008 [facility] SYMPTOMS EMERGENCY INVOLVING SERVICES RESPIRATORY ASSOCIATES SYSTEM&CHES T 53372 VOMITING 09-06-2008 [facility] ALONE [facility]ERGENCY SERVICES ASSOCIATES 62914 DIARRHEA 09-06-2008 [facility] 58303 UNSPECIFIED 09-01-2008 [facility] INFECTIVE EMERGENCY OTITIS SERVICES EXTERNA ASSOCIATES 3829 UNSPECIFIED 09-01-2008 [facility] OTITIS [facility]GENCY MEDIA SERVICES ASSOCIATES 40893 MATERNAL 08-24-2008 WOMEN'S MENTAL D/O HEALTH CLINIC OF COND/COMPLI [place] [facility] V251 ENCOUNTER 08-24-2008 [facility]OMEN'[facility] INSERT/ROBBIE HEALTH RADHA IU CLINIC OF CONTRACEPTI [place] VE DEVICE PLLC 22530 OLIGOHYDRAM 07-13-2008 [facility]S [facility], [facility] DELIVERED CLINIC OF [place] [facility] 75692 OLIGOHYDRAM 07-12-2008 [facility], [facility] ANTEPARTUM CLINIC OF CY[place] [facility] 33160 POST TERM 07-11-2008 WOMEN'S HEALTH ANTEPARTUM CLINIC OF COND/COMPLI [place] CATION [facility] V220 SUPERVISION 07-04-2008 [facility] OF NORMAL [facility]ALTH [facility] 4659 ACUTE URIS 05-31-2008 DINO SELLERS R UNSPECIFIED SITE 40042 OT CURRENT 05-10-2008 [facility] CLASSIFIABL CLINIC OF E ELSW [place] ANTPRTM [facility] Medications Na ND Rx Da Fi Fi Am Da Di Ph RX Ph St me C No te ll ll ou ys ag ar # ys at rm s nt no ma ic us Or Da si cy ia de te s n re d CI 55 08 09 11 15 30 WA 71 CL Ac TA 11 -2 -2 .0 L- 32 AR ti LO 10 5- 9- 00 MA 34 KE ve MN 34 20 20 RT 4 AM 43 11 11 DE 0 PH RE HB AR K R MA J 40 CY # MG 10 TA 05 BL 91 ET CI 55 08 08 11 15 30 WA 71 CL Ac TA 11 -2 -2 .0 L- 32 AR ti LO 10 5- 5- 00 MA 34 KE ve MN 34 20 20 RT 4 AM 43 11 11 DE 0 PH RE HB AR K R MA J 40 CY # MG 10 TA 05 BL 91 ET LI 00 08 08 1 35 10 WA 71 CL Ac DO 16 -2 [...] 91 00 02 02 1 14 7 MO 71 PO Ac 59 -0 -0 .0 L- 05 PE ti 13 1- 2- 00 MA 15 ve 97 20 20 RT 3 DO 05 11 11 NN 0 PH A AR M MA CY # 10 05 91 MN 68 11 11 0 15 5 WA [...] IB 68 11 11 0 21 7 WA 70 CALVIN Ac UP 64 -1 -1 [...] 20 20 RT 8 70 10 10 PA 5 PH CH AR AE MA L CY S # 10 05 91 DI 00 06 06 0 14 7 WA 70 GA Ac CL 78 -1 -1 .0 L- 74 IN ti OF 11 2- 3- 00 MA 52 EY ve EN 78 20 20 RT 4 AC 90 10 10 PA 1 PH CH SO AR AE D MA L EC CY S # 75 10 MG 05 91 TA B 00 06 06 0 14 7 WA 70 GA Ac 37 -1 -1 .0 L- 74 IN ti 80 2- 3- 00 MA 52 EY ve 75 20 20 RT 5 19 10 10 PA 3 PH CH AR AE MA L CY S # 10 05 91 AM 00 03 03 0 [address] Ac OX 78 -0 -0 .0 L- 60 EP ti IC 12 2- 2- 00 MA 62 HE ve IL 61 20 20 RT 4 NS LI 33 10 10 N 1 PH DO 50 AR N 0 MA R MG CY # CA PS 10 UL 05 E 91 LO 00 03 03 0 [address] Ac RA 78 -0 -0 .0 L- 15 EP ti TA 15 2- 2- 00 MA 58 HE ve DI 07 20 20 RT 7 NS NE 70 10 10 1 PH DO 10 AR N MA R MG CY # TA BL 10 ET 05 91 AM 00 06 06 00 21 7 WA 70 ME Ac OX 78 -1 -1 .0 L- 24 AD ti IC 12 0- 8- 00 MA 13 E ve IL 61 20 20 RT 4 DM LI 30 09 09 D N 5 PH JE 50 AR WE 0 MA LL MG CY CA #5 PS 91 UL E DI 00 06 06 00 1. 1 WA 44 ME Ac AZ 37 -0 -1 00 L- 77 AD ti EP 80 9- 8- 0 MA 28 E ve AM 34 20 20 RT 8 DM 5 50 09 09 D 5 PH JE MG AR WE MA LL TA CY BL ET #5 91 00 06 06 00 20 3 [...] 0- 8- 00 MA 13 E ve MN 59 20 20 RT 5 DM ED 31 09 09 D NI 5 PH JE SO AR WE LO MA LL NE CY 4 #5 MG 91 DO SE PK NE 61 06 06 00 10 12 WA 70 MADERA Ac OM 31 -0 -1 .0 L- 23 MO ti YC 40 4- 8- 00 MA 38 N ve IN 64 20 20 RT 6 AN -P [address] OL 0 PH EW YM AR R YX MA IN CY -H C #5 EA [address] TR 59 06 06 00 3. 3 WA 44 ME Ac IA 76 -0 -1 00 L- 77 AD ti ZO 23 9- 8- 0 MA 28 E ve LA 71 20 20 RT 7 DM M 80 09 09 D 0. 4 PH JE 25 AR WE MA LL MG CY TA #5 BL 91 ET SE 31 05 06 00 15 30 [...] DE 8 PH RE AR K OSCAR Elise CY #5 91 58 10 11 00 30 30 WA 69 CL Ac 17 -2 -0 .0 L- 92 AR ti 70 3- 7- 00 MA 57 KE ve 22 20 20 RT 0 50 08 08 DE 4 PH RE AR K OSCAR Elise CY #5 91 Immunization Name Date Route CVX Reacti Commen Provid Is Given on t er Refuse d IIV3 HERNANDEZ No VACCIN 2009 [facility] 0.5 ML DOSAGE IM USE Procedures Procedure DOS Code Location Performer Comment REMOVAL 19771 [facility] DUSTIN INTRAUTER 6 PHYSICIAN TOBY GRETCHEN S GROUP DEVICE IUD ARTHROSCO 71701 [place] MIRNA SCO PY 6 MEDICAL SHOULDER SERV SURGICAL FOUNDATIO CAPSULORR N HAPHY ANES 24233 [place] FEDERSPIE ARTHRS 6 MEDICAL L HUMERAL SERVICES H/N STRNCLAV & SHOULDER NOS INJECTION 16237 [place] CHLOE ANES 6 MEDICAL MEKA BRACHIAL SERV PLEXUS FOUNDATIO CONT NFS N CATH MRI ANY 71952 [place] CHARITO JT UPPER 6 MEDICAL Y JUS EXTREMITY SERV W/O FOUNDATIO CONTRAST N MATRL RADEX 56616 [place] TIFFANIE SHOULDER 6 MEDICAL FRA COMPLETE SERV MINIMUM 2 FOUNDATIO VIEWS N ANESTHESI 62613 [place] A 6 MEDICAL MEDICAL CLAVICLE SERVICES SERVICES AND SCAPULA NOS INJECTION 16620 [place] CHLOE ANES 6 MEDICAL BRACHIAL [place] [address] [place] CHLO[place] GUIDANCE 6 MEDICAL NEEDLE SERV PLACEMENT FOUNDATIO IMG S&I N ARTHROSCO 59463 [place] MIRNA SCO PY 6 MEDICAL SHOULDER SERV SURG FOUNDATIO DEBRIDEME N NT EXTENSIVE CLAVICULE 34320 [place] MIRNA SCO CTOMY 6 MEDICAL PARTIAL SERV FOUNDATIO N DECALCIFI 43639 [facility] CATION 6 Y OF MAT PROCEDURE [place] [facility] L[place] 78289 [facility] SURG 6 Y OF MAT PATHOLOGY [facility] GROSS&SHAQUILLE ROSCOPIC EXAM RADEX 71280 [facility] GARAYGOMER SHOULDER 6 MEDICAL Y JUS COMPLETE SERV MINIMUM 2 FOUNDATIO VIEWS N CRTCHS E0114 [facility]ANC[facility] UNDARM 6 TECHNOLOG TECHNOLOG OTH THAN IES INC IES INC WOOD PAIR PAD TIP&HNDGR IP RADEX 94682 [place] JANEE ANKLE 6 MEDICAL DANIELLA COMPLETE IMAGING MINIMUM 3 ASS VIEWS ANKLE L4350 [facility] CONTROL 6 TECHNOLOG TECHNOLOG ORTHOSIS IES INC IES INC STIRRUP STYL RIGID PREFAB INJ J0702 [facility] PETTEY BETAMETHA 6 PHYSICIAN JAVI REYE S GROUP ACETATE & PHOSPHATE 3 MG ARTHROCEN 46231 [facility] PETTEY TESIS 6 PHYSICIAN JAM ASPIR&/IN S GROUP J INTERM JT/BURS W/O US ARTHROCEN 15275 [facility] TESIS 6 PHYSICIAN PHYSICIAN ASPIR&/IN S GROUP S GROUP J MAJOR JT/BURSA W/O US RADIOLOGI 88133 [place] HEREDIA ALL C EXAM 6 MEDICAL CHEST 2 IMAGING VIEWS ASS FRONTAL&L ATERAL ARTHROCEN 75833 [facility] PETTEY TESIS 6 PHYSICIAN JAM ASPIR&/IN S GROUP J INTERM JT/BURS W/O US INJ J0702 [facility] PETTEY BETAMETHA 6 PHYSICIAN JAVI HAGAN S GROUP ACETATE & PHOSPHATE 3 MG THERAPEUT 55530 [facility] MANN IC PX 1/> 6 [facility]OS[facility] AREAS INC INC EACH 15 MIN EXERCISES PHYSICAL 53870 [facility] MANN THERAPY 6 [facility] [place] [address] [facility] MANN JT UPPER 6 [facility] EXTREMITY INC INC W/O CONTRAST MATRL RADEX 55745 [facility] MANN SHOULDER 5 [facility] COMPLETE INC INC MINIMUM 2 VIEWS THERAPEUT 97177 [facility] MANN IC 5 [facility] TIC/DX INJECTION SUBQ/IM URINE 95387 [facility] CHAN 5 PHYSICIAN TOBY TEST S GROUP VISUAL COLOR CMPRSN METHS IAADIADOO 58830 [facility] MUNSON 5 [facility] CCUS GROUP A RHEUMATOI 76585 [facility] Alas FACTOR 5 [facility]OS[facility] QUANTITAT INC INC DACIA INJECTION J1040 [facility] AMIN 5 PHYSICIAN JUSTICE METHYLPRE S GROUP PA-C KURT DNISOLONE ACETATE [address] [place] [address] [facility] MANN THYROXINE 5 [facility] TOTAL INC INC ANTINUCLE 76573 [facility] MANN AR 5 [facility]OS[facility]OS[facility] ANTIBODIE INC INC S ROBERT THERAPEUT 69115 [facility] AMIN IC 5 PHYSICIAN JUSTICE PROPHYLAC S GROUP PA-C KURT TIC/DX INJECTION SUBQ/IM SEDIMENTA 80972 [facility] M[facility] TION RATE 5 [facility] [place] [address] [facility] MANN THYROID 5 [facility] STIMULATI INC INC NG HORMONE TSH RADEX 58262 [place] JANEE HAND 5 MEDICAL DANIELLA MINIMUM 3 IMAGING VIEWS ASS RADEX 22960 [place] JANEE FOREARM 2 5 MEDICAL DANIELLA VIEWS IMAGING ASS RADEX 40821 [facility] L[facility] SPINE 5 WILLIAM WILLIAM LUMBOSACR AL 2/3 VIEWS CYTP C/V 69424 [facility], PICKLESIM AUTO THIN 5 LLC ER JR BEAU LYR PREPJ SCR MNL RESCR PHYS CHIROPRAC 23639 [facility] TIC 5 WILLIAM WILLIAM MANIPULAT DACIA TX SPINAL 1-2 REGIONS INTRAUTER J7300 [facility] CHAN INE 3 HEALTH TOBY COPPER CLINIC OF CONTRACEP [place] TIVE INSERTION 99731 WOMEN'S WOMEN'S 3 HEALTH HEALTH INTRAUTER CLINIC OF CLINIC OF INE [place] DEVICE IUD URINE 31407 WOMEN'S CHAN 3 HEALTH TOBY TEST CLINIC OF VISUAL [place] COLOR CMPRSN METHS CYTP C/V 13167 PATHOLOGY PICKLESIM AUTO THIN 3 & ER JR BEAU LYR CYTOLOGY PREPJ SCR LAB MNL RESCR PHYS NEURAXIAL 38433 [facility] SHIR[facility] LABOR 3 ANESTH ANALG/ANE OF THE S PLND BLUE VAGINAL DELIVERY VAGINAL 70097 WOMEN'S CHAN DELIVERY 3 HEALTH TOBY ONLY CLINIC OF W/POSTPAR [place]AYE CARE REPAIR OF 7569 [facility] MACKENZIE OTHER 3 [facility] CURRENT INC [place] N 0[address]95 DEVIN HERNANDEZ NONSTRESS 3 DAVID POWER [place] TEST URNLS DIP 24854 [facility]IE MACKENZIE 3 [facility] STICK/TAB INC INC LET REAGENT AUTO MICROSCOP Y US PREG 60544 [facility] UTERUS 3 ANGLICAN ANGLICAN REAL TIME HOSP HOSP F/U TRNSABDL PER FETUS 05276 [facility] BIOPHYS[facility] 3 [facility] TOBY AL CLINIC OF PROFILE [place] W/O NON-STRES S TESTING DOPPLER 59504 [facility] VELOCIMET 3 HEALTH TOBY RY CLINIC OF UMBILICAL [place] ARTERY [place] PREG 13414 [facility] UTERUS 3 HEALTH TOBY REAL TIME CLINIC OF F/U [place] TRNSABDL PER FETUS URNLS DIP 20543 [facility] MANN 3 [facility] STICK/TAB INC INC LET REAGENT AUTO MICROSCOP Y 39456 [facility] NONSTRESS 3 HEALTH TOBY TEST CLINIC OF [place] CULTURE 88905 MACK[facility]ZIE MANN BACTERIAL 3 [facility] INC INC QUANTTATI VE COLONY COUNT URINE CUL BACT 84768 COMBINED COMBINED XCPT 3 PHYSICIAN PHYSICIAN URINE S LA S LA BLOOD/STO OL AEROBIC ISOL 48987 [facility]OP[facility] 3 [facility] TOBY AL CLINIC OF PROFILE [place] W/O NON-STRES S TESTING US PREG 75676 MACKENZIE MANN UTERUS 3 [facility] REAL TIME INC INC F/U TRNSABDL PER FETUS 39592 [facility]ACK[facility] MANN BIOPHYSIC 3 [facility] AL INC INC PROFILE W/O NON-STRES S TESTING 75679 [facility] BIOP[facility]YSIC 3 MEDICAL DANIELLA AL IMAGING PROFILE ASS NON-STRES S TESTING HOSPITAL [address] [facility] 3 HEALTH TOBY DAY CLINIC OF MANAGEMEN TYSON T 30 MIN/< [place] [address] MACKENZIE MANN MAGNESIUM 3 [facility] INC INC DOPPLER 99388 MACKENZIE MANN VELOCIMET 3 [facility] RY INC INC UMBILICAL ARTERY 83735 MACKENZIE MANN NONSTRESS 3 [facility] TEST INC INC 03012 MACKENZIE MANN NONSTRESS 3 [facility] TEST INC INC SBSQ 927[address] [facility] 3 HEALTH TOBY CARE/DAY CLINIC OF [address] [place] [address] MACKENZIE MANN MAGNESIUM 3 [facility] INC INC CREATININ 70543 MACKENZIE MANN E OTHER 3 [facility] SOURCE INC INC HOSPITAL G0378 MACKENZIE MANN OBSERVATI 3 [facility] ON INC INC SERVICE PER HOUR PROTEIN 06140 MACK[facility]IE MANN XCPT 3 [facility] REFRACTOM INC INC ETRY SERUM PLASMA/WH L BLD BLOOD 54439 MACKENZIE MANN COUNT 3 [facility] COMPLETE INC INC AUTO&AUTO DIFRNTL WBC URNLS DIP 79523 [facility] MANN 3 [facility] STICK/TAB INC INC LET REAGENT AUTO MICROSCOP Y FTL 69943 [facility]IE MNAN FIBRONECT 3 [facility] IN INC INC CERVICOVA G SECRETION S SEMI-FRANSISCA EVAL C/V 74349 MACKENZIE MANN AMNIOTIC 3 [facility] FLUID INC INC PROTEIN QUAL EA SPECIMEN TRANSFERA 41429 M[facility]IE MANN SE 3 [facility] ASPARTATE INC INC AMINO AST SGOT TRANSFERA 25780 M[facility]IE MANN SE 3 [facility] ALANINE INC INC AMINO ALT [facility] G0378 MACKENZIE MANN OBSERVATI 3 [facility] [place] [address] MACKENZIE MANN MAGNESIUM 3 [facility] INC INC BASIC 14080 MACKENZIE MANN METABOLIC 3 [facility] [place] [address] MACKENZIE MANN BLOOD/URI 3 [facility] C ACID INC INC THROMBOPL 72146 MACKENZIE MANN ASTIN 3 [facility] TIME INC INC PARTIAL PLASMA/WH OLE BLOOD INITIAL 56242 [facility] 3 HEALTH TOBY CARE/DAY CLINIC OF 50 [place] MINUTES 74436 MACKENZIE MANN NONSTRESS 3 [facility] TEST INC INC FIBRIN 70854 MACKENZIE MANN DGRADJ 3 [facility] PRODUCTS INC INC D-DIMER QUAL/SEMI FRANSISCA FIBRINOGE 84166 MACKENZIE MANN N 3 [facility] ACTIVITY INC INC PROTHROMB 18098 MACKENZIE MANN IN TIME 3 [facility] INC INC US PREG 77032 [facility] UTERUS 3 DANIELLA W/DETAIL DIAGNOSTI CCENTER TANVIR 1ST GESTATION GLUC BLD 44613 TO[facility] GLUC MNTR 3 DANIELLA DEV DIAGNOSTI CLEARED CCENTER FDA SPEC HOME USE 60260 [facility] BIOPHYSIC 3 DANIELLA AL DIAGNOSTI PROFILE CCENTER W/O NON-STRES S TESTING 73458 [facility] BIOPHYSIC 3 HEALTH TOBY AL CLINIC OF PROFILE [place] W/O NON-STRES S TESTING DOPPLER 14944 [facility] VELOCIMET 3 HEALTH TOBY RY CLINIC OF UMBILICAL [place] ARTERY [place] PREG 25463 [facility] UTERUS 3 HEALTH TOBY REAL TIME CLINIC OF F/U [place] TRNSABDL PER FETUS URNLS DIP 00988 MACKENZIE MANN 3 [facility] STICK/TAB INC INC LET REAGENT AUTO MICROSCOP Y FTL 16216 MACKENZIE MANN FIBRONECT 3 [facility] IN INC INC CERVICOVA G SECRETION S SEMI-FRANSISCA 05495 MACKENZIE MANN NONSTRESS 3 [facility] TEST INC INC THERAPEUT 62046 MACKENZIE MANN IC 3 [facility] PROPHYLAC INC INC TIC/DX INJECTION SUBQ/IM CULTURE 08117 MACKENZIE MANN BACTERIAL 3 [facility] INC INC QUANTTATI VE COLONY COUNT URINE I&D 88216 [facility] VULVA/PER 3 [facility] TOBY INEAL CLINIC OF ABSCESS [place] CUL BACT 61279 COMBINED COMBINED XCPT 3 PHYSICIAN PHYSICIAN URINE S LA S LA BLOOD/STO OL AEROBIC ISOL 43725 DEVIN R HARPEL NONSTRESS 3 DAVID POWER JERRICA TEST URNLS DIP 55371 MACKENZIE MANN 3 [facility] STICK/TAB INC INC LET REAGENT AUTO MICROSCOP Y FTL 27110 MACKENZIE MANN FIBRONECT 3 [facility] IN INC INC CERVICOVA G SECRETION S SEMI-FRANSISCA US PREG 73596 [facility] UTERUS 3 HEALTH TOBY REAL TIME CLINIC OF F/U [place] TRNSABDL PER FETUS DOPPLER 04423 W[facility]'S [facility] VELOCIMET 3 [facility]ALTH TOBY RY CLINIC OF UMBILICAL [place] ARTERY 07620 [facility] BIOPHYSIC 3 HEALTH TOBY AL CLINIC OF PROFILE [place] W/O NON-STRES S TESTING 95577 [facility] HARPEL NONSTRESS 3 PHYSICIAN JERRICA TEST GROUP PCC GLUCOSE 70496 [facility] TOLERANCE 3 HEALTH TOBY TEST GTT CLINIC OF 3 [place] 57410 [facility] UTERUS 3 HEALTH TOBY AFTER 1ST CLINIC OF TRIMEST [place] 1/ GESTATION CULTURE 46519 COMBINED COMBINED BACTERIAL 3 PHYSICIAN PHYSICIAN S LA S LA QUANTTATI VE COLONY COUNT URINE CULTURE 94041 MACKENZIE MANN BACTERIAL 3 [facility] INC INC QUANTTATI VE COLONY COUNT URINE URNLS DIP 30291 MACKENZIE MANN 3 [facility] STICK/TAB INC INC LET REAGENT AUTO MICROSCOP Y ALPHA-FET 46976 MACKENZIE MANN OPROTEIN 3 [facility] SERUM INC INC GONADOTRO 16202 MACKENZIE MANN PIN 3 [facility] CHORIONIC [place] [address] MACKENZIE MANN ESTRIOL 3 [facility] INC INC MEDICAL 73383 MACKENZIE MANN NUTRITION 3 [facility] CENTER ASSMT&IVN TJ INDIV EACH 15 [place] US PREG 13993 [facility] UTERUS 3 HEALTH TOBY REAL TIME CLINIC OF W/IMAGE [place] DCMTN TRANSVAG CYTP C/V 24465 PATHOLOGY PICKLESIM AUTO THIN 3 & ER JR BEAU LYR CYTOLOGY PREPJ SCR LAB MNL RESCR PHYS IADNA 01045 PATHOLOGY PICKLESIM CHLAMYDIA 3 & ER JR BEAU CYTOLOGY TRACHOMAT LAB IS AMPLIFIED PROBE TQ IADNA 35572 PATHOLOGY PICKLESIM NEISSERIA 3 & ER JR BEAU CYTOLOGY GONORRHOE LAB AE AMPLIFIED PROBE TQ URINE 68057 MACKENZIE MANN 2 [facility] HEALTH TEST CENTER CENTER VISUAL COLOR CMPRSN METHS COLPOSCOP 84065 [facility]'S [facility]AN Y VULVA 1 [facility]ALTH TOBY CLINIC OF [place] IADNA 22492 PATHOLOGY PATHOLOGY PAPILLOMA 1 & & VIRUS CYTOLOGY CYTOLOGY HUMAN LAB LAB AMPLIFIED PROBE TQ CYTP 38123 PATHOLOGY PATHOLOGY CERVICAL/ 1 & & VAGINAL CYTOLOGY CYTOLOGY REQ LAB LAB INTERP PHYSICIAN CYTP C/V 38134 PATHOLOGY PATHOLOGY AUTO THIN 1 & & LYR CYTOLOGY CYTOLOGY PREPJ SCR [place] [address] CHIPPS PICKLESIM SURG 1 FRIEDA & ER JR BEAU PATHOLOGY DUBILIER GROSS&SHAQUILLE ROSCOPIC EXAM COLPOSCOP 52724 [facility] Y CERVIX 1 HEALTH TOBY BX CERVIX CLINIC OF & [place] ENDOCRV CURRETAGE FRAMES V2020 CATHY OWUSU PURCHASES 1 VISION ANG OPHTH 70483 CATHY SCIKIARA MEDICAL 1 VISION ANG XM&EVAL COMPRE NEW PT 1/> VST SPHERE V2100 CATHY OWUSU SINGLE 1 VISION ANG VISION PLANO +/- 4.00 PER LENS FITTING 40030 CATHY OWUSU SPECTACLE 1 VISION ANG S XCPT APHAKIA MONOFOCAL DESTRUCTI 31652 WOMEN'S WOMEN'S ON 1 HEALTH HEALTH LESIONS CLINIC OF [place]IN[place] [address] SURG 1 FRIEDA & PATHOLOGY DUBILIER GROSS&[place] L[place] [address] SURG 1 FRIEDA & PATHOLOGY DUBILIER GROSS EXAMINATI ON ONLY COLPOSCOP 49983 [facility] Y CERVIX 1 [facility]ALTH TOBY BX CERVIX CLINIC OF & [place] ENDOCRV CURRETAGE CONTRACEP A4267 MACKENZIE MANN TIVE 1 [facility] SUP[facility]Y [facility] CENTER CONDOM MALE EACH PH BODY 01996 MACKENZIE MANN FLUID NOT 1 [facility] CENTER ELSEWHERE SPECIFIED AMINES 06922 MACKENZIE MANN VAGINAL 1 [facility] QUALITATI VE IADNA 99203 MACKENZIE MANN NEISSERIA 1 [facility] GONORRHOE AE AMPLIFIED PROBE TQ SMR PRIM 81273 MACKENZIE MANN SRC WET 1 [facility] NFCT AGT ALL Q0112 MACKENZIE MANN POTASSIUM 1 [facility] HYDROXIDE PREPARATI ONS WET Q0111 MACKENZIE MANN EVGENY 1 [facility] HEALTH INCL PREP CENTER CENTER VAGINAL CERV/SKIN SPECIMENS CYTP 97730 PATHOLOGY PATHOLOGY CERVICAL/ 1 & & VAGINAL CYTOLOGY CYTOLOGY REQ LAB LAB INTERP PHYSICIAN IADNA 91371 MACKENZIE MANN CHLAMYDIA 1 [facility] C[facility] TRACHOMAT IS AMPLIFIED PROBE TQ CYTP 21822 PATHOLOGY PATHOLOGY CERV/VAG 1 & & AUTO THIN CYTOLOGY CYTOLOGY LAYER LAB [place] [address] MACKENZIE MANN STREPTOCO 0 [facility] CCUS INC INC GROUP A INSERTION 59315 [facility] 0 [facility]ALTH TOBY IMPLANTAB CLINIC OF LE [place] CONTRACEP TIVE CAPSULES ETONOGEST J7307 [facility]EN'S CH[facility] REL 0 HEALTH TOBY CNTRACPT CLINIC OF IMPL SYS [place] INCL IMPL & SPL URINE 69869 [facility]S CHAN 0 [facility]ALTH TOBY TEST CLINIC OF VISUAL [place] COLOR CMPRSN METHS IIV3 84553 MACKENZIE HERNANDEZON VACCINE 0 [facility] SPLIT CENTER CENTER VIRUS 0.5 ML DOSAGE IM USE IAADIADOO 94477 VERITO GUADARRAMAS 0 DON [place] [address] PATHOLOGY PATHOLOGY SURG 0 & & PATHOLOGY CYTOLOGY CYTOLOGY LAB LAB GROSS&SHAQUILLE ROSCOPIC EXAM IADNA 76490 PATHOLOGY PATHOLOGY NEISSERIA 0 & & CYTOLOGY CYTOLOGY GONORRHOE LAB LAB AE AMPLIFIED PROBE TQ IADNA 04972 PATHOLOGY PATHOLOGY CHLAMYDIA 0 & & CYTOLOGY CYTOLOGY TRACHOMAT LAB LAB IS AMPLIFIED PROBE TQ CYTP C/V 99357 PATHOLOGY PATHOLOGY AUTO THIN 0 & & LYR CYTOLOGY CYTOLOGY PREPJ SCR LAB LAB MNL RESCR PHYS CYTP 25683 PATHOLOGY PATHOLOGY CERVICAL/ 0 & & VAGINAL CYTOLOGY [place]OLOG[place] [address] [facility] TRANSVAGI 0 HEALTH VOLODYMYR J [facility] [address] SIGRID JANEE, ABDOMEN 0 MEDICAL JESÚS W/O & IMAGING W/CONTRAS ASSOCIATE T S MATERIAL URINE 87995 MACKENZIE MANN 0 [facility] TEST INC [place] [address] MACKENZIE MANN INFUSION 0 [facility] THERAPY INC INC PROPHYLAX IS/DX EA HOUR 3D 34273 SIGRID WELLER RENDERING 0 MEDICAL JESÚS IMAGING W/INTERP& ASSOCIATE POSTPROC S DIFF WORK STATION BLOOD 09855 MACKENZIE MANN COUNT 0 [facility] COMPLETE INC INC AUTO&AUTO DIFRNTL WBC URNLS DIP 38676 MACKENZIE MANN 0 [facility] STICK/TAB INC [place] [address] MACKENZIE MANN INFUSION 0 [facility] THERAPY/P INC INC ROPHYLAXI S /DX 1ST TO 1 HR RADIOLOGI 13961 ANTHONYMichelle WELLER C EXAM 0 MEDICAL JESÚS CHEST 2 IMAGING VIEWS ASSOCIATE FRONTAL&L S ATERAL COMPREHEN 15921 MACKENZIE MANN SIVE 0 [facility] METABOLIC INC INC PANEL CT PELVIS 66631 SIGRID JANEE, W/O & 0 MEDICAL JESÚS W/CONTRAS IMAGING T ASSOCIATE MATERIAL S RMVL FB 06-04-200 34586 NUBIA DAUGHERTY, XTRNL 9 EMERGENCY ANNIE R AUDITORY SERVICES CANAL W/O ANES ASSOCIATE S LEVONORGE J7302 [facility], STREL-RLS 9 [facility] E CLINIC OF INTRAUTER N CYNRADHA [facility]PT [facility] MG URINE 57686 [facility], 9 [facility] TEST CLINIC OF VISUAL COLOR CYNTHIROBERT CMPRSN [facility] METHS INSERTION 21239 [facility], 9 [facility] INTRAUTER CLINIC OF INE DEVICE CYNTHIROBERT IUD [facility] CYTP 04793 PATHOLOGY PATHOLOGY CERVICAL/ 9 & & VAGINAL CYTOLOGY CYTOLOGY REQ LAB LAB INTERP PHYSICIAN NEURAXIAL 29490 COMMUNITY CASTRO, LABOR 9 ANESTH ISAMAR F ANALG/ANE OF THE S PLND [place] VAGINAL DELIVERY VAGINAL 55125 [facility], DELIVERY 9 [facility] ONLY CLINIC OF W/POSTPAR GAYE CARE [place] [facility] INITIAL 98490 [facility], OBSERVATI 9 [facility] ON CLINIC OF CARE/DAY 50 [place] MINUTES [facility] REPAIR OF 7569 MACKENZIE MANN OTHER 9 [facility] CURRENT INC INC OBSTETRIC [place] P[place] 54717 [facility], UTERUS 9 [facility] REAL TIME CLINIC OF F/U TRNSABDL [place] PER FETUS [facility] DOPPLER 76436 [facility]S [facility], VELOCIMET 9 [facility] RY CLINIC OF UMBILICAL ARTERY [place] [facility] 30392 WOMEN'S DUSTIN, BIOPHYSIC 9 [facility] AL CLINIC OF PROFILE W/O [place] NON-STRES [facility] S TESTING SPHERE V2100 CATHY ROSE SINGLE 9 VISION JOSE ELIAS A VISION PLANO +/- 4.00 PER LENS FRAMES V2020 CATHY ROSE, PURCHASES 9 VISION JOSE ELIAS A RPR&REFIT 08682 Jonah TAYLOR 9 VISION JOSE ELIAS A SPECTACLE S EXCEPT APHAKIA DETERMINA 26886 NUBIA DELACRUZ, TIDAYNA 9 HARJEET COSBY REFRACTIV W W E STATE OPHTH 83090 NUBIA DELACRUZ, MEDICAL 9 AHRJEET COSBY XM&EVAL W W COMPRE NEW PT 1/> VST CUL BACT 62662 COMBINED COMBINED XCPT 9 PHYSICIAN PHYSICIAN URINE S LAB S LAB BLOOD/STO OL AEROBIC ISOL IAADIADOO 27205 VERITO SELLERS, 9 DON R DON R STREPTOCO CCUS GROUP A 13183 [facility], NONSTRESS 9 HEALTH VOLODYMYR J [facility] GLUCOSE 14890 [facility], TOLERANCE 9 HEALTH VOLODYMYR J TEST GTT CLINIC OF 3 SPECIMENS [facility] GLUCOSE 60394 [facility]EN[facility]S CHAN, POST 9 HEALTH VOLODYMYR J GLUCOSE CLINIC OF DOSE [facility] COLLECTIO 68420 [facility]EN[facility]S CHAN, N 9 HEALTH VOLODYMYR J CAPILLARY CLINIC OF BLOOD SPECIMEN [facility] US PREG 26855 [facility]EN[facility] CH[facility], UTERUS 8 HEALTH VOLODYMYR J REAL TIME CLINIC OF F/U [facility]DL [facility] PER FETUS [facility] US PREG 92239 [facility]OMEN[facility]S CH[facility], UTERUS 8 HEALTH VOLODYMYR J AFTER CLINIC OF TRIMEST [place] GESTATION [facility] Encounters Encounter Start End Date Code Location Performer Type Date OFFICE 85414 [facility] SA[facility]DERS OUTPATIEN 6 6 MEDICAL T VISIT SERV 15 FOUNDATIO MINUTES N [facility]OSPITAL [facility] 01148 BRENT SAUNDERS CONSULTAT 6 6 MEDICAL ION SERV NEW/ESTAB FOUNDATIO PATIENT N 60 MIN OFFICE 34770 [facility] PETTEY OUTPATIEN 6 6 PHYSICIAN JAM T VISIT S GROUP 10 MINUTES EMERGENCY 93001 MACKENZIE [address] [facility] INC T VISIT LOW/MODER SEVERITY EMERGENCY 96528 HANG STEINER 6 6 [facility] T V[facility]IT MODERATE SEVERITY HOSPITAL MACKENZIE - 6 6 [facility] OUTPATIEN INC T OFFICE 52848 [facility] PETTEY OUTPATIEN 6 6 PHYSICIAN JAM T VISIT S GROUP 10 MINUTES OFFICE 81017 [facility] PETTEY OUTPATIEN 6 6 PHYSICIAN JAM T VISIT S GROUP 10 MINUTES EMERGENCY 00792 HANG DECKER 6 6 PHYSICIAN [facility]abel [facility] T VISIT HIGH/URGE NT SEVERITY OFFICE 93273 [facility] PETTEY OUTPATIEN 6 6 PHYSICIAN JAM T VISIT S GROUP 15 MINUTES OFFICE 58492 [facility] CHAN OUTPATIEN 6 6 PHYSICIAN TOBY T VISIT S GROUP 15 MINUTES [facility] MACKENZIE - 6 6 [facility] OUTPATIEN INC T OFFICE 08858 [facility] PETTEY OUTPATIEN 6 6 PHYSICIAN JAM T VISIT S GROUP 15 MINUTES [facility] MACKENZIE - 6 6 [facility] OUTPATIEN INC T OFFICE 62848 [facility] PETTEY OUTPATIEN 5 5 PHYSICIAN JAM T NEW 30 S GROUP [facility] MACKENZIE - 5 5 [facility] OUTPATIEN INC T OFFICE 22194 MACKENZIE YMAN OUTPATIEN [address] [facility] 15 MINUTES OFFICE 57328 [facility] CHAN OUTPATIEN 5 5 PHYSICIAN TOBY T VISIT S GROUP 15 MINUTES OFFICE 76369 MACKENZIE JEIMY OUTPATIEN [address] [facility] 10 [facility] MACKENZIE - 5 5 [facility] OUTPATI[facility] INC T OFFICE 85225 [facility] AMIN OUTPATIEN 5 5 PHYSICIAN JUSTICE T NEW 30 S GROUP BILL [facility] MACKENZIE - 5 5 [facility] OUTPATIEN INC T OFFICE 71593 MACKENZIE GUERRERO [facility] 5 5 [facility] T VISIT HOSPITAL 15 MINUTES [facility] 16677 [facility] PREVENTIV 5 5 PHYSICIAN E MED EST S GROUP PATIENT 18-39 YRS EMERGENCY 88556 HANG DECKER 5 5 PHYSICIAN Anabel FRENCH S, [facility] T VISIT MODERATE SEVERITY HOSPITAL MACKENZIE - 3 3 [facility] INPATIENT INC OFFICE 98957 [facility] OUTPATIEN 3 3 HEALTH TOBY T VISIT CLINIC OF 15 [place] MINUTES OFFICE 00301 DEVIN HERNANDEZ OUTPATISHEA 3 3 DAVID BECERRIL T VISIT 15 MINUTES HOSPITAL MACKENZIE - 3 3 [facility] OUTPATI[facility] INC T OFFICE 46643 DEVIN HERNANDEZ OUTPATIEN 3 3 DAVID BECERRIL T VISIT 15 MINUTES HOSPITAL CENTRAL - 3 3 [facility] OUT[facility]IEN HOSP T OFFICE 33680 [facility] OUTPATIEN 3 3 HEALTH TOBY T VISIT CLINIC OF 15 [place] MINUTES HOSPITAL MACKENZIE - 3 3 [facility] OUTPATIEN INC T OFFICE 71631 [facility] OUTPATIEN 3 3 [facility]ALTH TOBY T VISIT CLINIC OF 15 [place] MINUTES HOSPITAL MACKENZIE - 3 3 [facility] OUTPATIEN INC HOSPITAL CENTRAL - 3 3 [facility] OUTPATIEN HOSP T OFFICE 35278 TOYA CONSULTAT 3 3 DANIELLA ION DIAGNOSTI NEW/ESTAB CCENTER PATIENT 15 MIN HOSPITAL MACKENZIE - 3 3 [facility] OUTPATIEN INC HOSPITAL MACKENZIE - 3 3 [facility] OUTPATIEN INC T OFFICE 61846 DEVIN HERNANDEZ OUTPATIEN 3 3 DAVID POWER JERRICA T VISIT 15 MINUTES OFFICE 80003 [facility] OUTPATIEN 3 3 HEALTH TOBY T VISIT CLINIC OF 15 [place] MINUTES OFFICE 49492 [facility] OUTPATIEN 3 3 HEALTH TOBY T VISIT CLINIC OF 15 [place] MINUTES OFFICE 00818 [facility] OUTPATIEN 3 3 HEALTH TOBY T VISIT 5 CLINIC OF MINUTES [place] OFFICE 48245 [facility]EN[facility] CH[facility] OUTPATIEN 3 3 HEALTH TOBY T VISIT CLINIC OF 15 [place] MINUTES OFFICE 42159 [facility] CH[facility] OUTPATIEN 3 3 HEALTH TOBY T VISIT CLINIC OF 15 [place] MINUTES EMERGENCY 80664 NUBIA MCCAIN 3 3 EMERGENCY [place] DEPARTMEN SERVICES T VISIT HIGH/URGE NT SEVERITY HOSPITAL MACKENZIE - 3 3 [facility] OUTPATIEN INC T EMERGENCY 41051 MACKENZIE 3 3 [facility] DEPARTMEN INC T VISIT LOW/MODER SEVERITY OFFICE 54162 [facility] OUTPATIEN 3 3 [facility]ALTH TOBY T VISIT CLINIC OF 15 [place] MINUTES HOSPITAL MACKENZIE - 3 3 [facility] OUTPATIEN INC T OFFICE 82308 [facility] CH[facility] OUTPATIEN 3 3 HEALTH TOBY T VISIT CLINIC OF 15 [place] MINUTES OFFICE 56776 [facility]EN[facility] CH[facility] OUTPATIEN 3 3 HEALTH TOBY T VISIT CLINIC OF 15 [place] MINUTES HOSPITAL MACKENZIE - 2 2 [facility] OUTPATIEN INC T EMERGENCY 28747 MACKENZIE 2 2 [facility] DEPARTMEN INC T VISIT LOW/MODER SEVERITY EMERGENCY 37032 NUBIA MCCAIN 2 2 EMERGENCY [place] DEPARTMEN SERVICES T VISIT HIGH/URGE NT SEVERITY OFFICE 32375 MACKENZIE MANN OUTPATIEN 2 2 [facility] HEALTH T VISIT CENTER CENTER 15 MINUTES INITIAL 17179 MACKENZIE MACKENZIE PREVENTIV 1 [facility] CENTER MEDICINE NEW PT AGE 18-39YRS EMERGENCY 36204 MACKENZIE 0 0 [facility] DEPARTMEN INC T VISIT LOW/MODER SEVERITY EMERGENCY 15575 NUBIA ALFORD 0 0 EMERGENCY [facility] DEPARTMEN SERVICES T VISIT MODERATE SEVERITY HOSPITAL MACKENZIE - 0 0 [facility] OUTPATIEN INC T OFFICE 37018 VERITO BARNHARTHENS OUTPATIEN 0 0 DON DON T VISIT 15 MINUTES OFFICE 29012 SELLERSGONZÁLEZ BARNHARTHENS OUTPATIEN 0 0 DON DON T VISIT 15 MINUTES EMERGENCY 52848 NUBIA MCCAIN, 0 0 EMERGENCY [facility] T VISIT HIGH/URGE ASSOCIATE NT S SEVERITY EMERGENCY 86731 MACKENZIE 0 0 [facility] DEPARTMEN INC T VISIT LOW/MODER SEVERITY HOSPITAL MACKENZIE - 0 0 [facility] OUTPATIEN INC T PERIODIC 10532 [facility], PREVENTIV 0 0 HEALTH VOLODYMYR J E MED EST CLINIC OF PATIENT 18-39 YRS [facility] OFFICE 37903 SELLERS, SELLERS, OUTPATIEN 0 0 DON R DON R T VISIT 15 MINUTES OFFICE 41730 [facility], OUTPATIEN 0 0 HEALTH VOLODYMYR J T VISIT CLINIC OF 15 MINUTES [facility] EMERGENCY 05440 NUBIA MCCAIN DEPT 0 0 EMERGENCY [facility] VISIT SERVICES HIGH SEVERITY& ASSOCIATE THREAT S [facility] MACKENZIE - 0 0 [facility] OUTPATIEN INC T EMERGENCY 89770 MACKENZIE 0 0 [facility] DEPARTMEN INC T VISIT MODERATE SEVERITY EMERGENCY 55429 NUBIA REES, 9 9 EMERGENCY [place] DEPARTMEN SERVICES O T VISIT HIGH/URGE ASSOCIATE NT S SEVERITY EMERGENCY 60307 MACKENZIE 9 9 [facility] DEPARTMEN INC T VISIT LOW/MODER SEVERITY EMERGENCY 32982 NUBIA DAUGHERTY, 9 9 EMERGENCY ANNIE R DEPARTMEN SERVICES T VISIT MODERATE ASSOCIATE SEVERITY [facility] MACKENZIE - 9 9 [facility] OUTPATIEN INC T OFFICE 96857 [facility], OUTPATIEN 9 9 HEALTH VOLODYMYR J T VISIT CLINIC OF 15 MINUTES [facility] OFFICE 14865 WOMEN'S CAHN, OUTPATIEN 9 9 HEALTH VOLODYMYR J T VISIT CLINIC OF 25 MINUTES [facility] OFFICE 28393 [facility]EN[facility]S CH[facility], OUTPATIEN 9 9 HEALTH VOLODYMYR J T VISIT CLINIC OF 15 MINUTES [facility] MACKENZIE - 9 9 [facility] INPATIENT INC OFFICE 56236 [facility]EN[facility]S CH[facility], OUTPATIEN 9 9 HEALTH VOLODYMYR J T VISIT CLINIC OF 15 MINUTES [facility] OFFICE 61647 WOMEN'S CHAN, OUTPATIEN 9 9 HEALTH VOLODYMYR J T VISIT CLINIC OF 15 MINUTES [facility] OFFICE 06369 WOMEN'S CHAN, OUTPATIEN 9 9 HEALTH VOLODYMYR J T VISIT CLINIC OF 15 MINUTES [facility] OFFICE 57916 WOMEN'S CHAN, OUTPATIEN 9 9 HEALTH VOLODYMYR J T VISIT CLINIC OF 15 MINUTES [facility] OFFICE 26910 WOMEN'S CHAN, OUTPATIEN 9 9 HEALTH VOLODYMYR J T VISIT CLINIC OF 15 MINUTES [facility] OFFICE 27533 THIERRY SELLERSS, OUTPATIEN 9 9 DON R DON R T VISIT 15 MINUTES OFFICE 95589 [facility], OUTPATIEN 9 9 HEALTH VOLODYMYR J T VISIT CLINIC OF 15 MINUTES [facility] OFFICE 52673 WOMEN'S CHAN, OUTPATIEN 9 9 HEALTH VOLODYMYR J T VISIT CLINIC OF 15 MINUTES [facility] OFFICE [id number] WOMEN'S CHAN, OUTPATIEN 9 9 HEALTH VOLODYMYR J T VISIT CLINIC OF 15 MINUTES [facility] OFFICE [id number] WOMEN'S CHAN, OUTPATIEN 9 9 HEALTH VOLODYMYR J T VISIT 5 CLINIC OF MINUTES [facility] OFFICE [id number] WOMEN'S CHAN, OUTPATIEN 8 8 HEALTH VOLODYMYR J T VISIT CLINIC OF 15 MINUTES [facility] OFFICE [id number] VERITO SELLERS OUTPATIEN 8 8 DON R DON R T VISIT 15 MINUTES OFFICE [id number] WOMEN'S CHAN, OUTPATIEN 8 8 HEALTH VOLODYMYR J T VISIT CLINIC OF 15 MINUTES [facility] OFFICE [id number] VERITO SELLERS OUTPATIEN 8 8 DON R DON R T VISIT 15 MINUTES
--- OUTSIDE RECORDS SUMMARY | 2016-09-16 13:44 | External Medical Summary Rpt ---
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 Name Role Phone [employer] Unavailable Unavailable INC, [employer] Unavailable Unavailable INC, [employer] TIFFANIE FRA, TIFFANIE Unavailable Unavailable FRA GUERRERO TER, GUERRERO TER Unavailable Unavailable HEREDIA ALL, HEREDIA ALL Unavailable [facility]available [facility], Unavailable Unavailable [facility] FRIEDA & Unavailable Unavailable DUBILIER, [...] Unavailable ANNIE DAUGHERTY HARPEL Unavailable Unavailable [facility] Unavailable Unavailable [facility] Unavailable Unavailable [facility] Unavailable Unavailable INC, [facility] JOSE ELIAS ROSE, Unavailable Unavailable JOSE ELIAS ROSE [facility], Unavailable Unavailable [facility] PRASHANTH ALFORD CHA Unavailable Unavailable [facility] Unavailable Un[facility] Unavailable Un[facility], [facility], Unavailable Unavailable [facility] CHLOE, CHLOE Unavailable Unavailable CHLOE MEKA, CHLOE Unavailable Unavailable MEKA MIRNA SCO, MINRA [facility]CO Unavailable Unavailable [facility] Unavailable Unavailable SERVICES, [facility] HARJEET DELACRUZ, Unavailable Unavailable HARJEET DELACRUZ TOYA DANIELAL, Unavailable Unavailable TOYA DANIELLA MOLINA JUS, Unavailable Unavailable MOLINA JUS CASTRO SHIRA, CASTRO SHIRA Unavailable Unavailable AMTTHEW ISAMAR F, Unavailable Unavailable MATTHEW ISAMAR F [...] DON R, Unavailable Unavailable SELLERS, DON R [facility], Unavailable Unavailable [facility] Unavailable [facility]available [facility] Unavailable Unavailable #[id number], [id number] # Unavailable Unavailable [id number], [facility] # [id number] [facility] Unavailable Unavailable OF [place], [facility] [place] Purpose Continuity of Care Document - 01-27-2008 through 2016 Problems Code Diagnosis DOS Provider Status [id number] ENCOUNTER 02-07-2016 [facility] REMOVAL PHYSICIANS INTRAUTERIN GROUP E CONTRACEPT DEVICE G8918 OTHER ACUTE 12-27-2015 [facility] R[facility] PA[facility] H08130 PAIN IN 12-27-2015 [facility] [id number] SUPERIOR 12-27-2015 [facility] GLEN[facility] LABRUM LESION RT SHOULDER INIT C00938 OTHER 12-21-2015 [facility] RIGHT [facility] SHOULDER M7581 OTHER 12-21-2015 [facility] LESIONS FOUNDATION RIGHT SHOULDER [id number] OTHER 12-13-2015 [facility] SH[facility] JOINT INITIAL ENCOUNTER [id number] STRAIN OTH 12-13-2015 [facility] M&T SHLDR SERV UP ARM LEVL FOUNDATION RT ARM INIT ENC F4591SP UNS INJURY 12-13-2015 [facility] UPPER ARM UNS ARM INIT ENC Z049 ENCOUNTER 09-28-2015 [facility] EX[facility] SERV &OBSERVATIO [facility] N FOR UNS REASON F11409 PRIMARY 09-13-2015 [facility] OSTEOARTHRI SERVICES TIS RIGHT SHOULDER O79205 PRIMARY 09-13-2015 [facility] TIS LEFT HOSPI SHOULDER A64339 LOOSE BODY 09-13-2015 [facility] IN RIGHT [facility] SHOULDER O75939 INCMPL RC 09-13-2015 [facility] TEAR/RUPT SERVICES RT SHOULDER NOT SPEC TRAUM [id number] UNS INJURY 08-15-2015 [facility] RT SH[facility]ER SERV UPPER ARM FOUNDATION INITIAL ENCNTR [id number] SPRAIN 08-14-2015 [facility] OTHER PHYSICIANS LIGAMENT LT GROUP ANKLE INITIAL ENCOUNTER G71468 PAIN IN 08-13-2015 [facility] [id number] SPRAIN UNS 08-13-2015 [facility] LEFT ANKLE S INC INITIAL ENCOUNTER [id number] SPRAIN 08-13-2015 [facility], R LIGAMENT PLLC LT ANKLE INIT ENC Z720 TOBACCO USE 08-13-2015 [facility] M1990 UNSPECIFIED 06-21-2015 [facility] PHYSICIANS OSTEOARTHRI GROUP TIS UNSPECIFIED SITE M7541 IMPINGEMENT 06-21-2015 [facility] SYNDROME PHYSICIANS OF RIGHT GROUP SHOULDER M5432 SCIATICA 06-14-2015 [facility] LEFT SIDE [facility], PLL[facility] M545 LOW BACK 06-14-2015 [facility] PAIN [facility]YS[facility], PLLC R071 CHEST PAIN 06-14-2015 [facility] BREATHING [facility] R0789 OTHER CHEST 06-14-2015 [facility] N762 ACUTE 04-20-2015 [facility] VULVITIS PHYSICIANS GROUP O55001 OTHER 04-14-2015 [facility] JOINT INC DISORDERS RIGHT SHOULDER N926 IRREGULAR 02-16-2015 [facility] MENSTRUATIO PHYSICIANS N GROUP UNSPECIFIED I54588 ENCOUNTER 02-16-2015 [facility] ROUTINE PHYSICIANS CHECKING IU GROUP CONTRACEPT DEVICE J029 ACUTE 02-13-2015 [facility] UNSPECIFIED J309 ALLERGIC 01-18-2015 [facility] RHINITIS PHYSICIANS UNSPECIFIED GROUP M2550 PAIN IN 01-18-2015 [facility] UNSPECIFIED PHYSICIANS JOINT GROUP Z8261 FAMILY 01-18-2015 [facility] HISTORY OF PHYSICIANS ARTHRITIS GROUP Z8269 FAM HX OTH 01-18-2015 [facility] DZ PHYSICIANS MUSCULOSKEL GROUP ETAL SYS&CONNECT IV TISS M129 ARTHROPATHY 01-16-2015 [facility] D04743 STIFFNESS 01-16-2015 [facility] OF LEFT [facility] HAND NOT INC ELSEWHERE CLASSIFIED S76085 PAIN IN 01-16-2015 [place] LEFT MEDICAL FOREARM IMAGING ASS M51459 PAIN IN 01-16-2015 [place] [facility] HAND [facility] V7231 ROUTINE 11-17-2014 [facility] AL EXAMINATION 31215 CONTUSION 09-25-2014 [facility], [facility] 7242 LUMBAGO 06-28-2014 [facility] WILLIAM 7393 NONALLOPATH 06-28-2014 [facility] IC LESION WILLIAM OF LUMBAR REGION NEC V2511 ENC FOR 12-29-2012 [facility] INSERTION HEALTH INTRAUTERIN CLINIC OF E [place] CONTRACEPT DEVICE V242 ROUTINE 12-25-2012 PATHOLOGY & CYTOLOGY FOLLOW-UP LAB 650 NORMAL 11-04-2012 [facility] DELIVERY [facility]ALTH [facility]INIC OF [place] 40064 POOR 11-04-2012 [facility] GROWTH HEALTH AFFECT CLINIC OF MANAGEMENT [place] MOTH DELIV 96020 EXCESS 11-04-2012 [facility] GROWTH INC AFFECT MANAGEMENT MOTH DELIV 52846 POLYHYDRAMN 11-04-2012 [facility]EN'S IOS, WITH HEALTH DELIVERY CLINIC OF [place] 59420 OTH&UNS CRD 11-04-2012 [facility] ENTANGL [facility] W/O COMPRS INC COMP L&D DELIV 06420 FIRST-DEGRE 11-04-2012 [facility] E PERINEAL [facility] LACERATION INC WITH DELIVERY V270 OUTCOME OF 11-04-2012 [facility]EN'[facility] DELIVERY HEALTH SINGLE CLINIC OF LIVEBORN [place] V221 SUPERVISION 11-02-2012 [facility]OMEN'S OF OTHER HEALTH NORMAL CLINIC OF [place] 07404 THREATENED 10-28-2012 [facility] PREMATURE [facility] LABOR INC ANTEPARTUM 24577 OTHER 10-28-2012 DEVIN HERNANDEZ MD LABOR, ANTEPARTUM 13499 UTERINE 10-23-2012 [facility] SIZE DATE SCIENTOLOGIST DISCREPANCY HOSP ANTPRTM COND/COMPL 19956 EXCESS 10-23-2012 DIAG[facility]STICC GROWTH ENTER AFFECT MGMT MOTH ANTPRTM 41486 POLYHYDRAMN 10-23-2012 IOS DIAGNOSTICC ANTEPARTUM ENTER COMPLICATIO N V2389 SUPERVISION 10-23-2012 OF OTHER DIAGNOSTICC HIGH-RISK ENTER V222 10-05-2012 [facility] INCIDENTAL IMAGING ASS 94513 UNSPECIFIED 10-03-2012 [facility] HYPERTENSIO INC N ANTEPARTUM 78540 OTH 09-25-2012 [facility] MATERNAL [facility]ENT[facility]IST CARDIOVAS[facility] HOSP LAR DISEASES ANTEPARTUM 05876 DECR 09-14-2012 [facility] MOVMNTS [facility] MGMT MOTH INC ANTPRTM COND/COMP 6164 OTHER 09-07-2012 [facility] ABSCESS OF HEALTH VULVA CLINIC OF [place] 79708 OTHER 09-07-2012 COMBINED POSTOPERATI PHYSICIANS VE LA INFECTION NEC V283 ENCOUNTER 07-02-2012 [facility]EN'S ROUTINE HEALTH SCREEN CLINIC OF KARLO [place] N ULTRASONIC 5990 URINARY 06-24-2012 [facility]EN'S TRACT HEALTH INFECTION CLINIC OF SITE NOT [place] SPECIFIED 28493 DIAB W/O 06-15-2012 [facility] COMP TYPE [facility] II/UNS NOT INC STATED UNCNTRL 7840 HEADACHE 06-15-2012 [facility] 23464 OTH CURRENT 05-12-2012 [facility] MATERNAL HEALTH CCE-COMPL CENTER PG CB/PP-UNS EOC V653 DIETARY 05-12-2012 [facility]ILL[facility] E AND CENTER COUNSELING 71559 OTHER 04-09-2012 [facility] SPECIFED HEALTH COMPLICATIO CLINIC OF N [place] ANTEPARTUM V745 SCREENING 04-01-2012 PATHOLOGY & EXAMINATION CYTOLOGY FOR LAB VENEREAL DISEASE 6259 UNSPEC 03-17-2012 [facility]OM [facility] SERVICES W/FEMALE GENITAL ORGANS V7242 03-11-2012 [facility] EXAMINATION HEALTH OR TEST CENTER POSITIVE RESULT 72633 CONDYLOMA 12-19-2010 [facility] ACUMINATUM [facility] [place] 0794 HUMAN 11-22-2010 [facility] PAP[facility]OMA FRIEDA & VIRUS IN DUBILIER CCE & UNS SITE 6160 CERVICITIS 11-22-2010 [facility] AND FRIEDA & ENDOCERVICI DUBILIER TIS 35399 MILD 11-22-2010 [facility] DYSPLASIA FRIEDA & OF CERVIX DUBILIER 86018 PAP SMER 11-22-2010 PATHOLOGY & CERV CYTOLOGY W/ATYPICAL LAB SQUAMOUS CELLS UNDET 56562 PAP SMER 11-22-2010 WOMEN'S CERV W/LW HEALTH GRADE CLINIC OF SQUAMOUS [place] INTRAEPITH LES 3671 MYOPIA 10-26-2010 [facility] 2662 OTHER 05-01-2010 [facility] S V1589 OTH SPEC 05-01-2010 PATHOLOGY & PERS HX CYTOLOGY PRESENTING LAB HAZARDS HEALTH OTH V2549 SURVEILLANC 05-01-2010 [facility] MATSON E OTH PREV HEALTH PRSC CENTER CONTRACEPT METHOD 462 ACUTE 02-11-2010 [facility] PHARYNGITIS [facility] 72799 NAUSEA 02-11-2010 [facility] EMERGENCY SERVICES V255 INSERTION 01-30-2010 WOMEN'S OF HEALTH IMPLANTABLE CLINIC OF SUBDERMAL [place] CONTRACEPTI VE V0481 NEED 01-26-2010 [facility] PROPHYLACTI [facility] [place] VACCINATION &INOCULATIO N FLU 8472 LUMBAR 01-01-2010 [facility] SPRAIN AND DON STRAIN 463 ACUTE 11-21-2009 SE[facility] TONSILLITIS DON 88309 ABDOMINAL 05-12-2009 WOMEN'S PAIN RIGHT HEALTH LOWER CLINIC OF [place] [facility] 06544 ABDOMINAL 05-05-2009 WOMEN'S PAIN, LEFT HEALTH LOWER CLINIC OF [place] [facility] 49944 CHEST PAIN 04-03-2009 [place] [facility] 20726 ABDOMINAL 04-03-2009 [facility] PAIN RIGHT MEDICAL UPPER IMAGING [facility]ANT [facility] 13275 ABDOMINAL 04-03-2009 [facility] PAIN OTHER EMERGENCY SPECIFIED SERVICES SITE ASSOCIATES 9249 CONTUSION 04-03-2009 [facility] OF EMERGENCY UNSPECIFIED SERVICES SITE ASSOCIATES 52307 OTHER 09-06-2008 [facility] DISEASES OF EMERGENCY NASAL SERVICES CAVITY AND ASSOCIATES SINUSES 7869 OTH 09-06-2008 [facility] SYMPTOMS EMERGENCY INVOLVING SERVICES RESPIRATORY ASSOCIATES SYSTEM&CHES T 37565 VOMITING 09-06-2008 [facility] ALONE [facility]ERGENCY SERVICES ASSOCIATES 78479 DIARRHEA 09-06-2008 [facility] 19230 UNSPECIFIED 09-01-2008 [facility] INFECTIVE EMERGENCY OTITIS SERVICES EXTERNA ASSOCIATES 3829 UNSPECIFIED 09-01-2008 [facility] OTITIS [facility]GENCY MEDIA SERVICES ASSOCIATES 05661 MATERNAL 08-24-2008 WOMEN'S MENTAL D/O HEALTH CLINIC OF COND/COMPLI [place] [facility] V251 ENCOUNTER 08-24-2008 WOMEN'S INSERT/ROBBIE HEALTH RADHA IU CLINIC OF CONTRACEPTI [place] VE DEVICE PLLC 34078 OLIGOHYDRAM 07-13-2008 [facility]'S [facility] DELIVERED CLINIC OF [place] [facility] 26471 OLIGOHYDRAM 07-12-2008 [facility] ANTEPARTUM CLINIC OF [facility] 23461 POST TERM 07-11-2008 WOMEN'S HEALTH ANTEPARTUM CLINIC OF COND/COMPLI [place] CATION [facility] V220 SUPERVISION 07-04-2008 [facility]EN[facility] OF NORMAL HEALTH FIRST [facility] 4659 ACUTE URIS 05-31-2008 DINO SELLERS R UNSPECIFIED SITE 51498 OT CURRENT 05-10-2008 [facility] CLASSIFIABL CLINIC OF E ELSW [place] ANTPRTM [facility] Medications Na ND Rx Da Fi [...] 5- 9- 00 MA 34 KE ve PA 34 20 20 RT 4 AM 43 11 11 DE 0 PH RE HB AR K R MA J 40 CY # MG 10 TA 05 BL 91 ET CI 55 08 08 11 15 30 WA 71 CL Ac TA 11 -2 -2 .0 L- 32 AR ti LO 10 5- 5- 00 MA 34 KE ve PA 34 20 20 RT 4 AM 43 [...] 91 00 02 02 1 14 7 AZ 71 PO Ac 59 -0 -0 .0 L- 05 PE ti 13 1- 2- 00 MA 15 ve 97 20 20 RT 3 DO 05 11 11 NN 0 PH A AR M MA CY # 10 05 91 PA 68 11 11 0 15 5 WA [...] 20 20 RT 8 70 10 10 TX 5 PH CH AR AE MA L CY S # 10 05 91 DI 00 06 06 0 14 7 WA 70 GA Ac CL 78 -1 -1 .0 L- 74 IN ti OF 11 2- 3- 00 MA 52 EY ve EN 78 20 20 RT 4 AC 90 10 10 TX 1 PH CH SO AR AE D MA L EC CY S # 75 10 MG 05 91 TA B 00 06 06 0 14 7 WA 70 GA Ac 37 -1 -1 .0 L- 74 IN ti 80 2- 3- 00 MA 52 EY ve 75 20 20 RT 5 19 10 10 TX 3 PH CH AR AE MA L [...] 0- 8- 00 MA 13 E ve PA 59 20 20 RT 5 DM ED [...] HERNANDEZ No VACCIN 2009 [place] [facility] VIRUS CENTER 0.5 ML DOSAGE IM USE Procedures Procedure DOS Code Location Performer Comment REMOVAL 32100 [facility] DUSTIN INTRAUTER 6 PHYSICIAN TOBY GRETCHEN S GROUP DEVICE IUD ARTHROSCO 62991 [place] MRINA SCO PY 6 MEDICAL SHOULDER SERV SURGICAL FOUNDATIO CAPSULORR N HAPHY ANES 53801 [place] FEDERSPIE ARTHRS 6 MEDICAL L HUMERAL SERVICES H/N STRNCLAV & SHOULDER NOS INJECTION 12293 [place] CHLOE ANES 6 MEDICAL MEKA BRACHIAL SERV PLEXUS FOUNDATIO CONT NFS N CATH MRI ANY 94453 [place] CHARITO JT UPPER 6 MEDICAL Y JUS EXTREMITY SERV W/O FOUNDATIO CONTRAST N MATRL RADEX 69678 [place] TIFFANIE SHOULDER 6 MEDICAL FRA COMPLETE SERV MINIMUM 2 FOUNDATIO VIEWS N ANESTHESI 00740 [place] A 6 MEDICAL MEDICAL CLAVICLE SERVICES SERVICES AND SCAPULA NOS INJECTION 47795 [place] ANES 6 MEDICAL BRACHIAL [place] [address] [place] GUIDANCE 6 MEDICAL NEEDLE SERV PLACEMENT FOUNDATIO IMG S&I N ARTHROSCO 41318 [place] MIRNA SCO PY 6 MEDICAL SHOULDER SERV SURG FOUNDATIO DEBRIDEME N NT EXTENSIVE CLAVICULE 13896 [place] MIRNA SCO CTOMY 6 MEDICAL PARTIAL SERV FOUNDATIO N DECALCIFI 55311 [facility] CATION 6 Y OF MAT PROCEDURE [place] [facility] LEVEL III 68949 [facility] SURG 6 Y OF MAT PATHOLOGY [place] [facility] GROSS&SHAQUILLE ROSCOPIC EXAM RADEX 20942 [facility] GARAYGOMER SHOULDER 6 MEDICAL Y JUS COMPLETE SERV MINIMUM 2 FOUNDATIO VIEWS N CRTCHS E0114 [facility]ED UNDARM 6 TECHNOLOG TECHNOLOG OTH THAN IES INC IES INC WOOD PAIR PAD TIP&HNDGR IP RADEX 43875 [place] JANEE ANKLE 6 MEDICAL DANIELLA COMPLETE IMAGING MINIMUM 3 ASS VIEWS ANKLE L4350 [facility] CONTROL 6 TECHNOLOG TECHNOLOG ORTHOSIS IES INC IES INC STIRRUP STYL RIGID PREFAB INJ J0702 [facility] PETTEY BETAMETHA 6 PHYSICIAN JAVI REYE S GROUP ACETATE & PHOSPHATE 3 MG ARTHROCEN 36813 [facility] PETTEY TESIS 6 PHYSICIAN JAM ASPIR&/IN S GROUP J INTERM JT/BURS W/O US ARTHROCEN 06872 [facility] TESIS 6 PHYSICIAN PHYSICIAN ASPIR&/IN S GROUP S GROUP J MAJOR JT/BURSA W/O US RADIOLOGI 80776 [place] HEREDIA ALL C EXAM 6 MEDICAL CHEST 2 IMAGING VIEWS ASS FRONTAL&L ATERAL ARTHROCEN 81660 [facility] PETTEY TESIS 6 PHYSICIAN JAM ASPIR&/IN S GROUP J INTERM JT/BURS W/O US INJ J0702 [facility] PETTEY BETAMETHA 6 PHYSICIAN JAVI HAGAN S GROUP ACETATE & PHOSPHATE 3 MG THERAPEUT 95104 [facility] MANN IC PX 1/> 6 [facility] AREAS INC INC EACH 15 MIN EXERCISES PHYSICAL 36052 [facility] MANN THERAPY 6 MEM [facility] MEM HOSP [place] [address] [facility] MANN JT UPPER 6 MEM H[facility]OS[facility] EXTREMITY INC INC W/O CONTRAST MATRL RADEX 04621 [facility] MANN SHOULDER 5 [facility]OS[facility] COMPLETE INC INC MINIMUM 2 VIEWS THERAPEUT 02456 [facility] MANN IC 5 [facility] TIC/DX INJECTION SUBQ/IM URINE 09491 [facility] CHAN 5 PHYSICIAN TOBY TEST S GROUP VISUAL COLOR CMPRSN METHS IAADIADOO 61522 [facility] MUNSON 5 [facility] CCUS GROUP A RHEUMATOI 48337 [facility] Alas FACTOR 5 [facility]OS[facility] QUANTITAT INC INC DACIA INJECTION J1040 [facility] AMIN 5 PHYSICIAN JUSTICE METHYLPRE S GROUP PA-C KURT DNISOLONE ACETATE [address] [place] [address] [facility] MANN THYROXINE 5 MEM H[facility]OS[facility] TOTAL INC INC ANTINUCLE 20266 [facility] MANN AR 5 [facility] H[facility] MEM HOS[facility] ANTIBODIE INC INC S ROBERT THERAPEUT 41593 [facility] AMIN IC 5 PHYSICIAN JUSTICE PROPHYLAC S GROUP PA-C KURT TIC/DX INJECTION SUBQ/IM SEDIMENTA 84941 [facility] MANN TION RATE 5 [facility] [place] [address] [facility] MANN THYROID 5 [facility] H[facility] STIMULATI INC INC NG HORMONE TSH RADEX 64872 [place] JANEE HAND 5 MEDICAL DANIELLA MINIMUM 3 IMAGING VIEWS ASS RADEX 95649 [place] JANEE FOREARM 2 5 MEDICAL DANIELLA VIEWS IMAGING ASS RADEX 52458 [facility] SPINE 5 WILLIAM WILLIAM LUMBOSACR AL 2/3 VIEWS CYTP C/V 22922 [facility], PICKLESIM AUTO THIN 5 LLC ER JR BEAU LYR PREPJ SCR MNL RESCR PHYS CHIROPRAC 13946 [facility] LAG[facility] TIC 5 WILLIAM WILLIAM MANIPULAT DACIA TX SPINAL 1-2 REGIONS INTRAUTER J7300 [facility] CH[facility] INE 3 HEALTH TOBY COPPER CLINIC OF CONTRACEP [place] TIVE INSERTION 97102 WOMEN'S WOMEN'S 3 HEALTH HEALTH INTRAUTER CLINIC OF CLINIC OF INE [place] DEVICE IUD URINE 06038 [facility]'S CHAN 3 HEALTH TOBY TEST CLINIC OF VISUAL [place] COLOR CMPRSN METHS CYTP C/V 96353 PATHOLOGY PICKLESIM AUTO THIN 3 & ER JR BEAU LYR CYTOLOGY PREPJ SCR LAB MNL RESCR PHYS NEURAXIAL 26279 [facility] LABOR 3 ANESTH ANALG/ANE OF THE S PLND BLUE VAGINAL DELIVERY VAGINAL 13169 [facility] CHAN DELIVERY 3 HEALTH TOBY ONLY CLINIC OF W/POSTPAR [place] 7569 [facility] MACKENZIE OTHER 3 [facility]OS[facility] CURRENT INC INC OBSTETRIC LACERATIO N 97392 DEVIN HERNANDEZ NONSTRESS 3 DAVID POWER [place] TEST URNLS DIP 40790 [facility] MACKENZIE 3 [facility] H[facility]OS[facility] STICK/TAB INC INC LET REAGENT AUTO MICROSCOP Y US PREG 67837 [facility] UTERUS 3 SCIENTOLOGIST SCIENTOLOGIST REAL TIME HOSP HOSP F/U TRNSABDL PER FETUS 00475 [facility] BIOPHYSIC 3 HEALTH TOBY AL CLINIC OF PROFILE [place] W/O NON-STRES S TESTING DOPPLER 48358 [facility] VELOCIMET 3 HEALTH TOBY RY CLINIC OF UMBILICAL [place] ARTERY US PREG 68236 [facility] UTERUS 3 HEALTH TOBY REAL TIME CLINIC OF F/U [place] TRNSABDL PER FETUS URNLS DIP 86956 [facility] MANN 3 MEM HOSP MEM HOSP STICK/TAB INC INC LET REAGENT AUTO MICROSCOP Y 95660 [facility]'S CHAN NONSTRESS 3 HEALTH TOBY TEST CLINIC OF [place] CULTURE 69718 [facility] MANN BACTERIAL 3 [facility] HOS[facility]OS[facility] INC INC QUANTTATI VE COLONY COUNT URINE CUL BACT 81311 COMBINED COMBINED XCPT 3 PHYSICIAN PHYSICIAN URINE S LA S LA BLOOD/STO OL AEROBIC ISOL 45869 [facility] CH[facility] BIOPHYSIC 3 HEALTH TOBY AL CLINIC OF PROFILE [place] W/O NON-STRES S TESTING US PREG 85720 [facility] MANN UTERUS 3 MEM HOSP MEM HOSP REAL TIME INC INC F/U TRNSABDL PER FETUS 79403 [facility] MANN BIOPHYSIC 3 MEM HOSP MEM HOSP AL INC INC PROFILE W/O NON-STRES S TESTING 42627 [facility] BIOPHYSIC 3 MEDICAL DANIELLA AL IMAGING PROFILE ASS NON-STRES S TESTING HOSPITAL 46406 [facility] 3 HEALTH TOBY DAY CLINIC OF MANAGEMEN [place] T 30 MIN/< [place] [address] [facility] MANN MAGNESIUM 3 MEM HOSP MEM HOSP INC INC DOPPLER 54431 [facility] MANN VELOCIMET 3 MEM HOS[facility] MEM [facility]OS[facility] RY INC INC UMBILICAL ARTERY 55015 [facility] MANN NONSTRESS 3 MEM HOS[facility] MEM HOSP TEST INC INC 30379 [facility]EN[facility] MANN NONSTRESS 3 MEM HOSP MEM HOSP TEST INC INC SBSQ 79570 [facility] 3 HEALTH TOBY CARE/DAY CLINIC OF [address] [place] [address] MACKENZIE MANN MAGNESIUM 3 [facility] INC INC CREATININ 51665 [facility]EN[facility] MANN E OTHER 3 MEM HOS[facility] SOURCE INC INC HOSPITAL G0378 [facility] MANN OBSERVATI 3 MEM H[facility] ON INC INC SERVICE PER HOUR PROTEIN 63715 [facility] MANN XCPT 3 MEM HOS[facility] MEM HOSP REFRACTOM INC INC ETRY SERUM PLASMA/WH L BLD BLOOD 43311 [facility] MANN COUNT 3 MEM H[facility] MEM HOS[facility] COMPLETE INC INC AUTO&AUTO DIFRNTL WBC URNLS DIP 08892 [facility] MANN 3 MEM HOS[facility] MEM HOSP STICK/TAB INC INC LET REAGENT AUTO MICROSCOP Y FTL 71061 MACKENZIE MANN FIBRONECT [facility] IN INC INC CERVICOVA G SECRETION S SEMI-FRANSISCA EVAL C/V 37377 MACKENZIE MANN AMNIOTIC 3 [facility] FLUID INC INC PROTEIN QUAL EA SPECIMEN TRANSFERA 28252 MACKENZIE MANN SE [facility] ASPARTATE INC INC AMINO AST SGOT TRANSFERA 62039 MACKENZIE MANN SE [facility] ALANINE [facility] INC AMINO ALT [facility] [id number] MACKENZIE MANN OBSERVATI 3 [facility] [place] [address] MACKENZIE MANN MAGNESIUM 3 [facility] INC INC BASIC 46627 MACKENZIE MANN METABOLIC 3 [facility] [place] [address] MACKENZIE MANN BLOOD/URI 3 [facility] C ACID INC INC THROMBOPL 02724 MACKENZIE MANN ASTIN 3 [facility] TIME INC INC PARTIAL PLASMA/WH OLE BLOOD INITIAL 84370 [facility] 3 HEALTH TOBY CARE/DAY CLINIC OF 50 [place] MINUTES 13835 MACKENZIE MANN NONSTRESS 3 [facility] TEST INC INC FIBRIN 81937 MACKENZIE MANN DGRADJ 3 [facility] PRODUCTS INC INC D-DIMER QUAL/SEMI FRANSISCA FIBRINOGE 42175 MACK[facility]ZIE MANN N [facility] ACTIVITY INC INC PROTHROMB 87865 MACKENZIE MANN IN TIME 3 [facility] INC INC US PREG 22486 [facility] UTERUS 3 [facility] W/DETAIL DIAGNOSTI CCENTER TANVIR 1ST GESTATION GLUC BLD 41178 [facility] GLUC MNTR 3 [facility] DEV DIAGNOSTI CLEARED CCENTER FDA SPEC HOME USE 73391 [facility] BIOPHYSIC 3 [facility] AL DIAGNOSTI PROFILE CCENTER W/O NON-STRES S TESTING 50635 [facility] BIOPHYSIC 3 [facility] TOBY AL CLINIC OF PROFILE [place] W/O NON-STRES S TESTING DOPPLER 51542 [facility] VELOCIMET 3 [facility]ALTH TOBY RY CLINIC OF UMBILICAL [place] ARTERY US PREG 28322 [facility] UTERUS 3 HEALTH TOBY REAL TIME CLINIC OF F/U [place] TRNSABDL PER FETUS URNLS DIP 66244 [facility] MANN [facility] STICK/TAB INC INC LET REAGENT AUTO MICROSCOP Y FTL 62275 MACKENZIE MANN FIBRONECT 3 [facility] IN INC INC CERVICOVA G SECRETION S SEMI-FRANSISCA 83617 MACKENZIE MANN NONSTRESS 3 [facility] TEST INC INC THERAPEUT 89571 MACKENZIE MANN IC 3 [facility] PROPHYLAC INC INC TIC/DX INJECTION SUBQ/IM CULTURE 92785 MACK[facility]ZIE MANN BACTERIAL 3 [facility] INC INC QUANTTATI VE COLONY COUNT URINE I&D 52086 [facility] VULVA/PER 3 [facility] TOBY INEAL CLINIC OF ABSCESS [place] CUL BACT 10068 COMBINED COMBINED XCPT 3 PHYSICIAN PHYSICIAN URINE S LA S LA BLOOD/STO OL AEROBIC ISOL 68072 DEVIN R HARPEL NONSTRESS 3 [facility] [place] TEST URNLS DIP 04013 [facility]ENZIE MANN [facility] STICK/TAB INC INC LET REAGENT AUTO MICROSCOP Y FTL 58861 MACKENZIE MANN FIBRONECT 3 [facility] IN INC INC CERVICOVA G SECRETION S SEMI-FRANSISCA US PREG 20919 [facility] UTERUS 3 [facility] TOBY REAL TIME CLINIC OF F/U [place] TRNSABDL PER FETUS DOPPLER 21102 [facility] VELOCIMET 3 [facility] TOBY RY CLINIC OF UMBILICAL [place] ARTERY 49327 [facility] BIOPHYSIC 3 [facility] TOBY AL CLINIC OF PROFILE [place] W/O NON-STRES S TESTING 19398 [facility] HARPEL NONSTRESS 3 PHYSICIAN JERRICA TEST GROUP PCC GLUCOSE 60590 [facility]S [facility]AN TOLERANCE 3 HEALTH TOBY TEST GTT CLINIC OF 3 [place] SPECIMENS US PREG 31762 [facility]OMEN[facility]S CHAN UTERUS 3 HEALTH TOBY AFTER 1ST CLINIC OF TRIMEST [place] 1/ GESTATION CULTURE 14438 COMBINED COMBINED BACTERIAL 3 PHYSICIAN PHYSICIAN S LA S LA QUANTTATI VE COLONY COUNT URINE CULTURE 37702 MACKENZIE MANN BACTERIAL 3 [facility] INC INC QUANTTATI VE COLONY COUNT URINE URNLS DIP 56161 MACKENZIE MANN 3 [facility] STICK/TAB INC INC LET REAGENT AUTO MICROSCOP Y ALPHA-FET 83313 MACKENZIE MANN OPROTEIN 3 [facility] SERUM INC INC GONADOTRO 88346 MACKENZIE MANN PIN 3 [facility] CHORIONIC [place] [address] MACKENZIE MANN ESTRIOL 3 [facility] INC INC MEDICAL 95458 MACKENZIE MANN NUTRITION 3 [facility] CENTER ASSMT&IVN TJ INDIV EACH 15 [place] PREG 89512 [facility] UTERUS 3 HEALTH TOBY REAL TIME CLINIC OF W/IMAGE [place] DCMTN TRANSVAG CYTP C/V 93345 PATHOLOGY PICKLESIM AUTO THIN 3 & ER JR BEAU LYR CYTOLOGY PREPJ SCR LAB MNL RESCR PHYS IADNA 53186 PATHOLOGY PICKLESIM CHLAMYDIA 3 & ER JR BEAU CYTOLOGY TRACHOMAT LAB IS AMPLIFIED PROBE TQ IADNA 23175 PATHOLOGY PICKLESIM NEISSERIA 3 & ER JR BEAU CYTOLOGY GONORRHOE LAB AE AMPLIFIED PROBE TQ URINE 19357 MACKENZIE MANN 2 [facility] HE[facility] TEST CENTER CENTER VISUAL COLOR CMPRSN METHS COLPOSCOP 49963 W[facility]EN'S CHAN Y VULVA 1 HEALTH TOBY CLINIC OF [place] IADNA 34672 PATHOLOGY PATHOLOGY PAPILLOMA 1 & & VIRUS CYTOLOGY CYTOLOGY HUMAN LAB LAB AMPLIFIED PROBE TQ CYTP 65441 PATHOLOGY PATHOLOGY CERVICAL/ 1 & & VAGINAL CYTOLOGY CYTOLOGY REQ LAB LAB INTERP PHYSICIAN CYTP C/V 23419 PATHOLOGY PATHOLOGY AUTO THIN 1 & & LYR CYTOLOGY CYTOLOGY PREPJ SCR [place] [address] CHIPPS PICKLESIM SURG 1 FRIEDA & ER JR BEAU PATHOLOGY DUBILIER GROSS&SHAQUILLE ROSCOPIC EXAM COLPOSCOP 79028 [facility]OMEN[facility]S CHAN Y CERVIX 1 HEALTH TOBY BX CERVIX CLINIC OF & [place] ENDOCRV CURRETAGE FRAMES V2020 CATHY OWUSU PURCHASES 1 VISION ANG OPHTH 35980 CATHY SCIKIARA MEDICAL 1 VISION ANG XM&EVAL COMPRE NEW PT 1/> VST SPHERE V2100 CATHY OWUSU SINGLE 1 VISION ANG VISION PLANO +/- 4.00 PER LENS FITTING 33337 CATHY OWUSU SPECTACLE 1 VISION ANG S XCPT APHAKIA MONOFOCAL DESTRUCTI 11840 WOMEN'S WOMEN'S ON 1 HEALTH HEALTH LESIONS CLINIC OF [place]IN[place] [address] SURG 1 FRIEDA & PATHOLOGY DUBILIER GROSS&[place] L[place] I [address] SURG 1 FRIEDA & PATHOLOGY DUBILIER GROSS EXAMINATI ON ONLY COLPOSCOP 96617 [facility]S CHAN Y CERVIX 1 HEALTH TOBY BX CERVIX CLINIC OF & [place] ENDOCRV CURRETAGE CONTRACEP A4267 MACKENZIE MANN TIVE 1 [facility] SUPPLY CENTER CENTER CONDOM MALE EACH PH BODY 20349 MACKENZIE MANN FLUID NOT [address] [facility] CENTER ELSEWHERE SPECIFIED AMINES 20077 MACKENZIE MANN VAGINAL 1 [facility] CENTER QUALITATI VE IADNA 55382 MACKENZIE MANN NEISSERIA [address] [facility] GONORRHOE AE AMPLIFIED PROBE TQ SMR PRIM 86012 MACKENZIE MANN SRC WET 1 [facility] NFCT AGT ALL Q0112 MACKENZIE MANN POTASSIUM [address] [facility] HYDROXIDE PREPARATI ONS WET Q0111 MACKENZIE MANN EVGENY 1 [facility] HEALTH INCL PREP CENTER CENTER VAGINAL CERV/SKIN SPECIMENS CYTP 94877 PATHOLOGY PATHOLOGY CERVICAL/ 1 & & VAGINAL CYTOLOGY CYTOLOGY REQ LAB LAB INTERP PHYSICIAN IADNA 80759 MACKENZIE MANN CHLAMYDIA [address] [facility] CENTER TRACHOMAT IS AMPLIFIED PROBE TQ CYTP 62963 PATHOLOGY PATHOLOGY CERV/VAG 1 & & AUTO THIN CYTOLOGY CYTOLOGY LAYER [place] [address] MACKENZIE MANN STREPTOCO 0 [facility] CCUS INC INC GROUP A INSERTION 02881 [facility]EN'S CHAN 0 HEALTH TOBY IMPLANTAB CLINIC OF LE [place] CONTRACEP TIVE CAPSULES ETONOGEST J7307 WOMEN'S CHAN REL 0 HEALTH TOBY CNTRACPT CLINIC OF IMPL SYS [place] INCL IMPL & SPL URINE 58649 [facility]OMEN[facility]S CHAN 0 HEALTH TOBY TEST CLINIC OF VISUAL [place] COLOR CMPRSN METHS IIV3 80712 MACKENZIE HERNANDEZON VACCINE 0 [facility] SPLIT CENTER CENTER VIRUS 0.5 ML DOSAGE IM USE IAADIADOO 18565 VERITO GUADARRAMAS 0 DON [place] [address] PATHOLOGY PATHOLOGY SURG 0 & & PATHOLOGY CYTOLOGY CYTOLOGY LAB LAB GROSS&SHAQUILLE ROSCOPIC EXAM IADNA 97314 PATHOLOGY PATHOLOGY NEISSERIA 0 & & CYTOLOGY CYTOLOGY GONORRHOE LAB LAB AE AMPLIFIED PROBE TQ IADNA 09306 PATHOLOGY PATHOLOGY CHLAMYDIA 0 & & CYTOLOGY CYTOLOGY TRACHOMAT LAB LAB IS AMPLIFIED PROBE TQ CYTP C/V 39299 PATHOLOGY PATHOLOGY AUTO THIN 0 & & LYR CYTOLOGY CYTOLOGY PREPJ SCR LAB LAB MNL RESCR PHYS CYTP 86306 PATHOLOGY PATHOLOGY CERVICAL/ 0 & & VAGINAL CYTOLOGY [place]OLOG[place] [address] WOMEN[facility]S CHAN TRANSVAGI 0 HEALTH VOLODYMYR J [facility] [place] [address] SIGRID JANEE, ABDOMEN 0 MEDICAL JESÚS W/O & IMAGING W/CONTRAS ASSOCIATE T S MATERIAL URINE 58789 MACKENZIE MANN 0 [facility] TEST INC [place] [address] MACKENZIE MANN INFUSION 0 [facility] THERAPY INC INC PROPHYLAX IS/DX EA HOUR 3D 58049 SIGRID WELLER RENDERING 0 MEDICAL JESÚS IMAGING W/INTERP& ASSOCIATE POSTPROC S DIFF WORK STATION BLOOD 59588 MACKENZIE MANN COUNT 0 [facility] COMPLETE INC INC AUTO&AUTO DIFRNTL WBC URNLS DIP 90416 MACKENZIE MANN 0 [facility] STICK/TAB INC [place] [address] MACKENZIE MANN INFUSION 0 [facility] THERAPY/P INC INC ROPHYLAXI S /DX 1ST TO 1 HR RADIOLOGI 48529 ANTHONYMichelle WELLER C EXAM 0 MEDICAL JESÚS CHEST 2 IMAGING VIEWS ASSOCIATE FRONTAL&L S ATERAL COMPREHEN 31576 MACKENZIE MANN SIVE 0 [facility] METABOLIC INC INC PANEL CT PELVIS 18274 SIGRID JANEE, W/O & 0 MEDICAL JESÚS W/CONTRAS IMAGING T ASSOCIATE MATERIAL S RMVL FB 06-04-200 69933 NUBIA DAUGHERTY, XTRNL 9 EMERGENCY ANNIE R AUDITORY SERVICES CANAL W/O ANES ASSOCIATE S LEVONORGE J7302 [facility], STREL-RLS 9 [facility] E CLINIC OF INTRAUTER N CYNR[facility]HA [facility] MG URINE 73681 [facility]S CH[facility], 9 [facility] TEST CLINIC OF VISUAL COLOR CYNTHIROBERT CMPRSN [facility] METHS INSERTION 07099 [facility] CH[facility], 9 [facility] INTRAUTER CLINIC OF INE DEVICE CYNTHIROBERT IUD [facility] CYTP 00710 PATHOLOGY PATHOLOGY CERVICAL/ 9 & & VAGINAL CYTOLOGY CYTOLOGY REQ LAB LAB INTERP PHYSICIAN NEURAXIAL 11395 COMMUNITY CASTRO, LABOR 9 ANESTH ISAMAR F ANALG/ANE OF THE S PLND [place] VAGINAL DELIVERY VAGINAL 29323 [facility] CH[facility], DELIVERY 9 [facility] ONLY CLINIC OF W/POSTPAR GAYE CARE [place] [facility] INITIAL 88220 [facility]OMEN[facility], OBSERVATI 9 [facility] ON CLINIC OF CARE/DAY 50 [place] MINUTES [facility] REPAIR OF 7569 MACKENZIE MANN OTHER 9 [facility] CURRENT INC INC OBSTETRIC [place] P[place] 06918 [facility] CH[facility], UTERUS 9 [facility] REAL TIME CLINIC OF F/U TRNSABDL [place] PER FETUS [facility] DOPPLER 61835 [facility], VELOCIMET 9 [facility] RY CLINIC OF UMBILICAL ARTERY [place] [facility] 21737 WOMEN'S DUSTIN, BIOPHYSIC 9 [facility] AL CLINIC OF PROFILE W/O [place] NON-STRES [facility] S TESTING SPHERE V2100 CATHY ROSE SINGLE 9 VISION JOSE ELIAS A VISION PLANO +/- 4.00 PER LENS FRAMES V2020 CATHY ROSE, PURCHASES 9 VISION JOSE ELIAS A RPR&REFIT 28375 Jonah TAYLOR 9 VISION JOSE ELIAS A SPECTACLE S EXCEPT APHAKIA DETERMINA 24385 NUBIA DELACRUZ, TIDAYNA 9 HARJEET COSBY REFRACTIV W W E STATE OPHTH 04908 NUBIA DELACRUZ, MEDICAL 9 HARJEET COSBY XM&EVAL W W COMPRE NEW PT 1/> VST CUL BACT 33165 COMBINED COMBINED XCPT 9 PHYSICIAN PHYSICIAN URINE S LAB S LAB BLOOD/STO OL AEROBIC ISOL IAADIADOO 39634 VERITO SELLERS, 9 DON R DON R STREPTOCO CCUS GROUP A 55422 [facility], NONSTRESS 9 HEALTH VOLODYMYR J TEST [facility] GLUCOSE 68841 [facility]EN[facility] CH[facility], TOLERANCE 9 HEALTH VOLODYMYR J TEST GTT CLINIC OF 3 SPECIMENS [facility] GLUCOSE 04504 [facility]OMEN[facility]S CHAN, POST 9 HEALTH VOLODYMYR J GLUCOSE CLINIC OF DOSE [facility] COLLECTIO 54714 [facility]S CHAN, N 9 HEALTH VOLODYMYR J CAPILLARY CLINIC OF BLOOD SPECIMEN [facility] US PREG 36537 WOMEN[facility]S CH[facility], UTERUS 8 HEALTH VOLODYMYR J REAL TIME CLINIC [facility] F/[facility] PER FETUS [facility] US PREG 93819 WOMEN[facility]S CHAN, UTERUS 8 HEALTH VOLODYMYR J AFTER CLINIC OF TRIMEST [place] GESTATION [facility] Encounters Encounter Start End Date Code Location Performer Type Date OFFICE 85152 BRENT SAUNDERS OUTPATIEN 6 6 MEDICAL T VISIT SERV 15 FOUNDATIO MINUTES N HOSPITAL [facility]ERS[facility] 6 [facility] 79041 BRENT SAUNDERS CONSULTAT 6 6 MEDICAL ION SERV NEW/ESTAB FOUNDATIO PATIENT N 60 MIN OFFICE 63037 [facility] PETTEY OUTPATIEN 6 6 PHYSICIAN JAM T VISIT S GROUP 10 MINUTES EMERGENCY 66546 MACKENZIE 6 6 [facility] INC T VISIT LOW/MODER SEVERITY EMERGENCY 16434 HANG STEINER 6 6 [facility] T VISIT MODERATE SEVERITY HOSPITAL MACKENZIE - 6 6 [facility] OUTPATIEN INC T OFFICE 67792 [facility] PETTEY OUTPATIEN 6 6 PHYSICIAN JAM T VISIT S GROUP 10 MINUTES OFFICE 28340 [facility] PETTEY OUTPATIEN 6 6 PHYSICIAN JAM T VISIT S GROUP 10 MINUTES EMERGENCY 55118 HANG DECKER 6 6 PHYSICIAN Anabel [facility] T VISIT HIGH/URGE NT SEVERITY OFFICE 35336 [facility] PETTEY OUTPATIEN 6 6 PHYSICIAN JAM T VISIT S GROUP 15 MINUTES OFFICE 55888 [facility] CHAN OUTPATIEN 6 6 PHYSICIAN TOBY T VISIT S GROUP 15 [facility]ES [facility] - 6 6 [facility] OUTPATIEN INC T OFFICE 77116 [facility] PETTEY OUTPATIEN 6 6 PHYSICIAN JAM T VISIT S GROUP 15 MINUTES [facility] M[facility]ZIE - 6 6 [facility] OUTPATIEN INC T OFFICE 26435 [facility] PETTEY OUTPATIEN 5 5 PHYSICIAN JAM T NEW 30 S GROUP [facility] MACKENZIE - 5 5 [facility] OUTPATIEN INC T OFFICE 60358 MACKENZIE YMAN OUTPATIEN 5 5 [facility] 15 MINUTES OFFICE 73146 [facility] CHAN OUTPATIEN 5 5 PHYSICIAN TOBY T VISIT S GROUP 15 MINUTES OFFICE 53695 MACKENZIE JEIMY OUTPATIEN 5 5 [facility] 10 [facility] MACKENZIE - 5 5 [facility] OUTPATIEN INC T OFFICE 65237 [facility] AMIN OUTPATIEN 5 5 PHYSICIAN JUSTICE T NEW 30 S GROUP BILL [facility] M[facility] - 5 5 [facility] OUTPATIEN INC T OFFICE 62278 MACKENZIE GUERRERO [facility] OUTPATIEN 5 5 [facility] T VISIT HOSPITAL 15 MINUTES [facility] 75897 [facility] PREVENTIV 5 5 PHYSICIAN E MED EST S GROUP PATIENT 18-39 YRS EMERGENCY 69812 HANG DECKER 5 5 PHYSICIAN Anabel FRENCH S, [facility] T VISIT MODERATE SEVERITY HOSPITAL MACKENZIE - 3 3 [facility] INPATIENT INC OFFICE 69529 [facility] OUTPATIEN 3 3 HEALTH TOBY T VISIT CLINIC OF 15 [place] MINUTES OFFICE 31453 DEVIN HERNANDEZ OUTPATISHEA 3 3 [facility] BECERRIL T VISIT 15 MINUTES HOSPITAL MACKENZIE - 3 3 [facility] OUTPATIEN INC T OFFICE 86815 DEVIN HERNANDEZ OUTPATIEN 3 3 DAVID BECERRIL T VISIT 15 MINUTES HOSPITAL CENTRAL - 3 3 [facility] OUTPATIEN HOSP T OFFICE 31910 [facility] OUTPATIEN 3 3 HEALTH TOBY T VISIT CLINIC OF 15 [place] MINUTES HOSPITAL MACKENZIE - 3 3 [facility] OUTPATIEN INC T OFFICE 71231 [facility] OUTPATIEN 3 3 HEALTH TOBY T VISIT CLINIC OF 15 [place] MINUTES HOSPITAL MACKENZIE - 3 3 [facility] OUTPATIEN INC HOSPITAL CENTRAL - 3 3 [facility] OUTPATIEN HOSP T OFFICE 75909 TOYA CONSULTAT 3 3 DANIELLA ION DIAGNOSTI NEW/ESTAB CCENTER PATIENT 15 MIN HOSPITAL M[facility]ENZIE - 3 3 [facility] OUTPATIEN INC HOSPITAL MACKENZIE - 3 3 [facility] OUTPATIEN INC T OFFICE 76960 DEVIN HERNANDEZ OUTPATIEN 3 3 DAVID POWER JERRICA T VISIT 15 MINUTES OFFICE 54060 [facility] OUTPATIEN 3 3 HEALTH TOBY T VISIT CLINIC OF 15 [place] MINUTES OFFICE 75390 [facility] OUTPATIEN 3 3 HEALTH TOBY T VISIT CLINIC OF 15 [place] MINUTES OFFICE 81770 [facility] OUTPATIEN 3 3 HEALTH TOBY T VISIT 5 CLINIC OF MINUTES [place] OFFICE 47565 [facility] OUTPATIEN 3 3 HEALTH TOBY T VISIT CLINIC OF 15 [place] MINUTES OFFICE 04621 [facility] OUTPATIEN 3 3 HEALTH TOBY T VISIT CLINIC OF 15 [place] MINUTES EMERGENCY 66135 NUBIA MCCAIN 3 3 EMERGENCY [place] DE[facility]MEN SERVICES T VISIT HIGH/URGE NT SEVERITY HOSPITAL M[facility]ENZIE - 3 3 [facility] OUTPATIEN INC T EMERGENCY 42646 MACKENZIE 3 3 [facility] DEPARTMEN INC T VISIT LOW/MODER SEVERITY OFFICE 49024 [facility] OUTPATIEN 3 3 HEALTH TOBY T VISIT CLINIC OF 15 [place] MINUTES HOSPITAL MACKENZIE - 3 3 [facility] OUTPATIEN INC T OFFICE 15079 [facility] OUTPATIEN 3 3 HEALTH TOBY T VISIT CLINIC OF 15 [place] MINUTES OFFICE 93377 [facility] CH[facility] OUTPATIEN 3 3 HEALTH TOBY T VISIT CLINIC OF 15 [place] MINUTES HOSPITAL MACKENZIE - 2 2 [facility] OUTPATIEN INC T EMERGENCY 76386 MACKENZIE 2 2 [facility] DEPARTMEN INC T VISIT LOW/MODER SEVERITY EMERGENCY 60527 NUBIA MCCAIN 2 2 EMERGENCY [place] [facility] SERVICES T VISIT HIGH/URGE NT SEVERITY OFFICE 67748 MACKENZIE MANN OUTPATIEN 2 2 [facility] HEALTH T VISIT CENTER CENTER 15 MINUTES INITIAL 41562 MACKENZIE MACKENZIE PREVENTIV 1 1 [facility] [place] [facility] MEDICINE NEW PT AGE 18-39YRS EMERGENCY 48035 MACKENZIE 0 0 [facility] DEPARTMEN INC T VISIT LOW/MODER SEVERITY EMERGENCY 02318 NUBIA ALFORD [address] [facility] DEPARTMEN SERVICES T VISIT MODERATE SEVERITY HOSPITAL MACKENZIE - 0 0 [facility] OUTPATIEN INC T OFFICE 18306 VERITO BARNHARTHENS OUTPATIEN 0 0 DON DON T VISIT 15 MINUTES OFFICE 91827 SELLERSGONZÁLEZ BARNHARTHENS OUTPATIEN 0 0 DON DON T VISIT 15 MINUTES EMERGENCY 21650 NUBIA MCCAIN, 0 0 [facility] VISIT HIGH/URGE ASSOCIATE NT S SEVERITY EMERGENCY 18442 MACKENZIE 0 0 [facility] DEPARTMEN INC T VISIT LOW/MODER SEVERITY HOSPITAL MACKENZIE - 0 0 [facility] OUTPATIEN INC T PERIODIC 80451 [facility], PREVENTIV 0 0 HEALTH VOLODYMYR J E MED EST CLINIC OF PATIENT 18-39 YRS [facility] OFFICE 66419 SELLERS, SELLERS, OUTPATIEN 0 0 DON R DON R T VISIT 15 MINUTES OFFICE 59188 [facility], OUTPATIEN 0 0 HEALTH VOLODYMYR J T VISIT CLINIC OF 15 MINUTES [facility] EMERGENCY 70162 NUBIA MCCAIN DEPT 0 0 EMERGENCY [facility] VISIT SERVICES HIGH SEVERITY& ASSOCIATE THREAT S [facility] HOSPITAL MACKENZIE - 0 0 [facility] OUTPATIEN INC T EMERGENCY 49054 MACKENZIE 0 0 [facility] DEPARTMEN INC T VISIT MODERATE SEVERITY EMERGENCY 90535 NUBIA REES, 9 9 EMERGENCY [place] DEPARTMEN SERVICES O T VISIT HIGH/URGE ASSOCIATE NT S SEVERITY EMERGENCY 22583 MACKENZIE 9 9 [facility] DEPARTMEN INC T VISIT LOW/MODER SEVERITY EMERGENCY 57455 UNBIA DAUGHERTY, 9 9 EMERGENCY ANNIE R DEPARTMEN SERVICES T VISIT MODERATE ASSOCIATE SEVERITY [facility] MACKENZIE - 9 9 [facility] OUTPATIEN INC T OFFICE 75834 [facility], OUTPATIEN 9 9 HEALTH VOLODYMYR J T VISIT CLINIC OF 15 MINUTES [facility] OFFICE 37219 [facility], OUTPATIEN 9 9 HEALTH VOLODYMYR J T VISIT CLINIC OF 25 MINUTES [facility] OFFICE 32296 [facility], OUTPATIEN 9 9 HEALTH VOLODYMYR J T VISIT CLINIC OF 15 MINUTES [facility] MACKENZIE - 9 9 [facility] INPATIENT INC OFFICE 86620 [facility]EN[facility] CH[facility], OUTPATIEN 9 9 HEALTH VOLODYMYR J T VISIT CLINIC OF 15 MINUTES [facility] OFFICE 23113 WOMEN[facility] CH[facility], OUTPATIEN 9 9 HEALTH VOLODYMYR J T VISIT CLINIC OF 15 MINUTES [facility] OFFICE 88735 [facility]OMEN[facility] CH[facility], OUTPATIEN 9 9 HEALTH VOLODYMYR J T VISIT CLINIC OF 15 MINUTES [facility] OFFICE 03210 [facility]OMEN[facility] CH[facility], OUTPATIEN 9 9 HEALTH VOLODYMYR J T VISIT CLINIC OF 15 MINUTES [facility] OFFICE 13011 WOMEN[facility]S CH[facility], OUTPATIEN 9 9 HEALTH VOLODYMYR J T VISIT CLINIC OF 15 MINUTES [facility] OFFICE 61931 THIERRY SELLERSS, OUTPATIEN 9 9 DON R DON R T VISIT 15 MINUTES OFFICE 30125 [facility], OUTPATIEN 9 9 HEALTH VOLODYMYR J T VISIT CLINIC OF 15 MINUTES [facility] OFFICE 91085 WOMEN[facility] CH[facility], OUTPATIEN 9 9 HEALTH VOLODYMYR J T VISIT CLINIC OF 15 MINUTES [facility] OFFICE 36522 WOMEN'S CHAN, OUTPATIEN 9 9 HEALTH VOLODYMYR J T VISIT CLINIC OF 15 MINUTES [facility] OFFICE 14136 WOMEN[facility]S CH[facility], OUTPATIEN 9 9 HEALTH VOLODYMYR J T VISIT 5 CLINIC OF MINUTES [facility] OFFICE 81386 WOMEN'S CHAN, OUTPATIEN 8 8 HEALTH VOLODYMYR J T VISIT CLINIC OF 15 MINUTES [facility] OFFICE 22720 VERITO SELLERS OUTPATIEN 8 8 DON R DON R T VISIT 15 MINUTES OFFICE 42260 [facility], OUTPATIEN 8 8 HEALTH VOLODYMYR J T VISIT CLINIC OF 15 MINUTES [facility] OFFICE 78690 VERITO SELLERS OUTPATIEN 8 8 DON R DON R T VISIT 15 MINUTES
--- OUTSIDE RECORDS SUMMARY | 2016-09-16 13:45 | External Medical Summary Rpt ---
Demographics Preferred Language Dutch Marital Status Unknown Yarsani Affiliation Unknown Race Unknown Ethnic Group Unknown Author Author , Organization [employer] Address Unknown Phone Unavailable Purpose Continuity of Care Document - through 2016 Immunization No patient found.
--- OUTSIDE RECORDS SUMMARY | 2016-09-16 13:45 | External Medical Summary Rpt ---
Demographics Preferred Language Scottish Marital Status Unknown Moravian Affiliation Unknown Race Unknown Ethnic Group Unknown Author Author , Organization [employer] Address Unknown Phone Unavailable Purpose Continuity of Care Document - through 2016 Immunization No patient found.
--- NOTE | 2016-09-16 14:08 | Urgent Treatment Center Report ---
History of Present Issue Date/Time Seen by Provider 09/16/16 1408 Visit Reason Pt arrived:Walked Presenting Problem:PT STATES HITTING A TREE FRIDAY WITH HER RIGHT HAND Location if Accident: Onset of symptoms date/time:09/14/16/ or onset unknown for:MEDICAL HX UNKNOWN Have you (or family members/close friends) recently traveled outside the [place]? N If Yes, where/when: Have you had exposure to infectious disease within the past month? TB? Other? Specify: c/o right hand pain and requesting an xray. Punched a tree Friday night, 2 days ago. Pain, mild swelling and bruising since. Denies limitations in ROM and pain mild "I even worked today like this". Currently 07/08. Not taking any medication for pain. tried ice once. "I just want to be sure it isn't broken". Denies N/T. Source patient Exam Limitations no limitations ALLERGIES Coded Allergies: No Known Allergies (06/14/15) History Medical History General CAD? No Angina: No [place]: No Hypertension? No Hyperlipidemia? No CHF? No DVT? No PE? No COPD? No Asthma? No Anemia? No GERD? No Gastric ulcers? No GI Bleed? No Hernia? No Thyroid Problems? No Hypothyroidism? No CVA? No Seizures? No Diabetes? No Renal Insuffiency? No UTI? No Stones? No BPH? No GB Disease: No Nephritic Syndrome? No Asplenia? No Hepatitis? No Sickle Cell Disease? No Arthritis? No Migraines? No Cataracts? No Glaucoma? No MRSA? No HIV? No TB? No Anxiety? Yes Depression? Yes Cancer? 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 Cardiovascular no peripheral edema Peripheral Pulses Pulses normal Yes (radial) Extremities non-tender (rt arm, wrist), normal range of motion (rt shoulder, elbow, wrist, ), mild swelling and ecchymosis w/ tenderness dorsal side of right hand over metatarsals and MCP joints 3-5 and entending into proximal phalanx digit 3. Full ROM all digits/joints without pain. 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 No Results/Orders Orders Procedure Date/time Status HAND-RT 3 VIEWS 09/16 1339 Active XRAY/CT/US XRAY/CT/US XRAY hand (right) XR interpretation by reviewed by me, discussed w/radiologist (read report) Xray Results normal/NAD, no fracture seen Departure Departure Time of Disposition 1424 Disposition DC Home or Self Care(routine) Clinical Impression Primary Impression: Contusion of right hand including fingers Qualifiers: Encounter type: initial encounter Qualified Code: S60.221A - Contusion of right hand, initial encounter Condition STABLE Referrals Onofre POWER,Saran Manrique (Family) Follow up IMMEDIATELY for new or worsening symptoms OR no noticeable improvement over the next 3-5 days. Patient Instructions DI for Contusion Additional Instructions * Keep hand and fingers active * Rest * ice 15-20 mins 3-4 times a day * Elevate as discussed as much as possible to help reduce swelling and therefore , pain * Ibuprofen every 6 hours as needed for pain and inflammation. If you need something more, you can take tylenol every 4 hours as needed as long as your primary care provider has told you it is ok to take both. Discharge Counseling Counseled pt/family regarding diagnosis, test results, medications/RX, home care, follow up needs at 1926
--- NOTE | 2016-09-16 14:22 | RADIOLOGY REPORT PS360 ---
HAND-RT 3 VIEWS Ordering Physician: FRANCO PIÑA APRN Patient Age: 26 years: Female HISTORY: HIT TREE FRIDAYroutine at metacarpals 123. Extends in the fingers. TECHNIQUE: 3 view COMPARISON is made to left hand 01/16/2015 FINDINGS No acute fracture. No dislocation. Bones well mineralized. Osseous structures intact. Fingers, metacarpals carpals unremarkable. IMPRESSION: Negative right hand. No fracture
[2016-09-16 14:31] VITALS: BP 117/69
== END 2016-09-16 14:31 | disposition home or self-care (01) ==
LOC: UTC 13:22
DX: S60.221A Contusion of right hand, initial encounter (principal); F41.8 Other specified anxiety disorders; Z72.0 Tobacco use; W22.8XXA Striking against or struck by other objects, initial encounter